=== PATIENT | male | born 1955 | race Caucasian/White ===

== ENCOUNTER 2019-04-09 02:20 | Outpatient (CLI) | payer MEDICARE, SELFPAY ==
[2019-04-09 11:13] LABS: ALT 21 U/L (12-78); AST 14 U/L (15-37); Alkaline Phosphatase 109 U/L (46-116); Anion Gap 8.4 mmol/L (3-11); BUN 16 mg/dL (7-18); Bilirubin, Total 0.5 mg/dL (0.2-1.0); CO2 28.6 mmol/L (21.0-32.0); CREATININE 0.99 mg/dL (0.70-1.30); Calcium 8.2 mg/dL (8.5-10.1); Chloride 106 mmol/L (98-107); Cholesterol 187 mg/dL (50-200); Glucose 105 mg/dL (70-100); HDL Cholesterol 25 mg/dL (40-60); LDL CHOLESTEROL 111 mg/dL (<100); Potassium 4.9 mmol/L (3.5-5.1); Sodium 143 mmol/L (136-145); Total Protein 6.9 g/dL (6.4-8.2); Triglyceride 295 mg/dL (30-150)
== END 2019-04-09 02:40 ==
DX: E78.5 Hyperlipidemia, unspecified (principal); F32.9 Major depressive disorder, single episode, unspecified; I10 Essential (primary) hypertension; K21.9 Gastro-esophageal reflux disease without esophagitis; R63.8 Other symptoms and signs concerning food and fluid intake
CPT/HCPCS: 36415; 80053; 80061; 83721

== ENCOUNTER 2019-07-29 07:37 | Emergency (ER) | payer MEDICARE, SELFPAY ==
[2019-07-29 07:42] VITALS: BP 136/83; PULSE 64; RESP 16; TEMP 36.7; O2SAT 100
--- NOTE | 2019-07-29 07:54 | W.ED.GENAD ---
Discharge Plan Disposition Patient Disposition: HOME Condition: Stable Discharge Details Chief Complaint: RashLesion Clinical Impression: Rash Primary Care Provider: Kamilla Jacobo ED Provider: Nessa Chaves Home Meds and New Rx's Prescriptions: New butenafine 1 % cream 1 applic TP DAILY Qty: 30 RF: 0 Continued psyllium husk [Metamucil] 0.52 GM capsule 0.52 gm PO DAILY RF: 0 atenolol 100 mg tablet 100 mg PO DAILY Qty: 90 RF: 4 allopurinol 300 mg tablet 300 mg PO DAILY Qty: 90 RF: 4 acetaminophen [Acetaminophen Extra Strength] 500 MG tablet 1 - 2 tab PO DAILY RF: 0 No Action omeprazole 40 mg capsule,delayed release(DR/EC) 40 mg PO DAILY Qty: 30 RF: 3 fluconazole 200 mg tablet 200 mg PO .weekly Qty: 4 RF: 0 clotrimazole 1 % cream 1 applic TP BID Qty: 24 RF: 2 Discharge Instructions Instructions: Butenafine (On the skin), Acute Rash (ED), Jock Itch (ED) Additional Instructions: Please return immediately to the emergency department if you develop any new or worsening symptoms, if your symptoms do not improve as expected, or if you become otherwise concerned. It is extremely important that you call as soon as possible to make an appointment to be seen in follow-up for this visit by your primary care doctor. 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 On exam patient is very well and nontoxic appearing. His skin is normal in appearance, with the exception of the groin area. Mild erythema of the groin extending into the perineum with well demarcated borders, no induration, no fluctuance, no scrotal edema or tenderness, normal exam of the penis. No inguinal lymphadenopathy. Concern for tinea cruris. Exam/history is not consistent with fourniers gangrene, cellulitis, abscess, UTI, testicular pathology, sepsis, other acute emergent life-threatening etiology. Suspect tinea secondary to recurrent excessive moisture to the area recently, no other symptoms concerning for diabetes, however will check fingerstick. Fingerstick 110 per nursing. Plan for Rx butenafine. I had a lengthy discussion with the patient regarding return to emergency department precautions/red flags to watch for, home care, importance of outpatient follow-up with patient's PCP. He verbalized understanding of the plan was amenable. All questions were answered. Patient was discharged home with clear plan for outpatient follow-up. Medical Records Medical records reviewed: Yes I reviewed the patient's medical records. Lab Data Lab results reviewed: Yes I reviewed the patient's lab results. HPI General Mode of arrival: ambulatory. Date/Time Provider Initiated Documentation: 07/29/19 07:53. Limitations to Documentation: no limitations. Information obtained by: patient, family, RN notes reviewed and old records reviewed. 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 Patient reports that he has had an itchy rash to his groin over the past month. He reports that itching has gotten progressively worse over time. He also states that rash is mildly painful. Patient reports that there have been no acute changes in his symptoms, other than mild nausea that he developed 3 days ago and has continued. He denies fevers, shortness of breath, cough, any other pain, any other rash, vomiting, diarrhea, dysuria. He states he has been eating and drinking as usual. Patient reports that he has tried putting baby powder and cornstarch on the rash, which has had no effect. Has not tried any other medications. No known exposures other than poison santy and areas that he has been working over the summer, although he has not had rash in any other area of his body in the past few months. Patient has never had similar symptoms to this groin rash in the past. Patient does report that he has been mowing his lawn more than usual over the past 2 months, and he sweats quite a bit. He reports that his underwear and pants have been soaking wet from sweat routinely while performing this task. Related Data Home Medications Medication Instructions Recorded Confirmed acetaminophen [Acetaminophen Extra 1 - 2 tab PO DAILY 01/25/17 07/29/19 Strength] psyllium husk [Metamucil] 0.52 gm PO DAILY 03/20/18 07/29/19 atenolol 100 mg tablet 100 mg PO DAILY #90 tab-cap 04/15/19 07/29/19 allopurinol 300 mg tablet 300 mg PO DAILY #90 tab-cap 06/07/19 07/29/19 butenafine 1 applic TP DAILY #30 gm 07/29/19 clotrimazole 1 % topical cream 1 applic TP BID #24 gm 08/07/19 08/07/19 fluconazole 200 mg tablet 200 mg PO .weekly #4 tab 08/07/19 08/07/19 omeprazole 40 mg capsule,delayed 40 mg PO DAILY #30 tab-cap 08/07/19 08/07/19 release Previous Rx's Medication Instructions Recorded atenolol 100 mg tablet 100 mg PO DAILY #90 tab-cap 04/15/19 allopurinol 300 mg tablet 300 mg PO DAILY #90 tab-cap 06/07/19 butenafine 1 applic TP DAILY #30 gm 07/29/19 clotrimazole 1 % topical cream 1 applic TP BID #24 gm 08/07/19 fluconazole 200 mg tablet 200 mg PO .weekly #4 tab 08/07/19 omeprazole 40 mg capsule,delayed 40 mg PO DAILY #30 tab-cap 08/07/19 release Allergies Allergy/AdvReac Type Severity Reaction Status Date / Time No Known Allergies Allergy Verified 07/29/19 07:46 General Stated Complaint: RashLesion ARIELLA: 4 Review of Systems Review of Systems Narrative: Constitutional: denies fevers Eyes: denies eye pain ENT: denies facial pain, dental pain, sore throat Cardiovascular: denies chest pain Respiratory: denies SOB, cough GI: denies abdominal pain, vomiting, diarrhea : denies flank pain MSK: denies back pain, neck pain, arthralgias, myalgias Skin: reports rash as per HPI Neuro: denies headaches, numbness, weakness [facility] Medical History Body aches (Chronic 07/13/17) Chronic interstitial cystitis (Chronic) 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) Diarrhea (Chronic 02/20/18) Essential hypertension (Chronic) External hemorrhoids (Chronic 07/20/17) Gastroesophageal reflux disease (Chronic 06/01/17) Gout (Chronic) Hearing loss (Chronic 08/01/13) History of unilateral nephrectomy (Chronic) Hyperlipidemia (Chronic 08/01/13) Increased BMI (body mass index) (Chronic 11/14/17) Insomnia (Chronic) LLQ discomfort (Chronic 03/20/18) Intermittent, chronic Memory impairment (Chronic 08/01/13) Obstructive sleep apnea syndrome (Chronic) C-Pap Primary osteoarthritis of both knees (Resolved 10/05/16) Shoulder pain (Chronic 08/01/13) Surgical History (Updated 04/04/19 @ 10:43 by Hortensia Prasad NP) Hemorrhoidectomy History of hemorrhoidectomy (Resolved) Nephrectomy (~1997) right Family History Mother No problems noted. Social History Smoking/Tobacco Use Status: Never Alcohol Intake: never Drug use: Never Do you feel safe at home: Yes Do you feel safe in your relationship?: Yes Exam Narrative Exam Narrative: Constitutional: well and emf-drrzp-onblcapun, pleasant, conversing normally HENT: head atraumatic/normocephalic/normal inspection, mucous membranes moist Eyes: conjunctiva normal, sclera normal, pupils 3mm b/l Neck: no stridor, normal ROM, trachea midline Chest: normal inspection Resp: normal work of breathing, LCTAB Cardio: normal rate, normal rhythm, no murmur appreciated Back: normal inspection, no rash : mild erythema of the groin extending into the perineum with well demarcated borders, no induration, no ulceration or other skin lesion, no fluctuance, no scrotal edema or tenderness, normal exam of the penis. No inguinal lymphadenopathy. No other skin rash. Skin: warm, dry, normal color, no rash Neuro: alert, not altered, grossly non-focal, normal tone Psych: normal mood, normal affect, normal behavior Course Vital Signs Vital signs: Vital Signs Temperature 36.7 C 07/29/19 07:42 Pulse 64 07/29/19 07:42 Respiratory Rate 16 07/29/19 07:42 Blood Pressure 136/83 07/29/19 07:42 Pulse Oximetry 100 07/29/19 07:42 Temperature 36.7 C 07/29/19 07:42 Temperature Source Temporal Artery Scan 07/29/19 07:42 Pulse 64 07/29/19 07:42 Respiratory Rate 16 07/29/19 07:42 Respiratory Effort Non-Labored 07/29/19 07:44 Blood Pressure 136/83 07/29/19 07:42 Blood Pressure Position Sitting 07/29/19 07:42 Pulse Oximetry 100 07/29/19 07:42 Oxygen Delivery Method Room Air 07/29/19 07:42 Oxygen Flow Rate 0 07/29/19 07:42 Pain Level 4 07/29/19 07:42
== END 2019-07-29 09:00 | disposition home or self-care (01) ==
PROVIDERS: Emergency Provider Student in an Organized Health Care Education/Training Program; PCP Family Medicine
DX: R21 Rash and other nonspecific skin eruption (principal); B35.6 Tinea cruris; R11.0 Nausea; I10 Essential (primary) hypertension
CPT/HCPCS: 36416; 82962; 99283

== ENCOUNTER 2019-12-27 03:36 | Outpatient (CLI) | payer MEDICARE, SELFPAY ==
--- NOTE | 2019-12-27 10:30 | DI.CT_ITS ---
EXAM: CT ABDOMEN AND PELVIS W CLINICAL HISTORY: PERIUMBILICAL PAIN/DIARRHEA, ABDOMINAL PAIN R10.9 TECHNIQUE: Imaging Protocol: Axial computed tomography images with coronal and sagittal reformatted images were created and reviewed CONTRAST MATERIAL: Intravenous: Omnipaque 350 Contrast volume:50 mL Oral: Yes COMPARISON: ABD PELVIS WITH CONTRAST from 04/28/2017 FINDINGS: ABDOMEN: Lung Bases: Normal where visualized. Liver: Diffuse decreased attenuation consistent with fatty infiltration. No measurable mass. Portal, Superior Mesenteric, and Splenic Veins: Unremarkable. Gallbladder and Biliary Tract: No radiodense calculus or dilation. Pancreas: Normal density, no abnormal calcifications or inflammatory process. Spleen: Normal. Adrenals: No masses seen. Kidneys: Prior right nephrectomy. No radiodense stones or obstructive uropathy. Several left renal c ysts. No suspicious renal mass. Abdominal Aorta: Abdominal portion non-dilated. Mild atherosclerosis. Bowel: No obstruction or bowel wall thickening. No evidence of an acute appendicitis. Peritoneal Cavity: No ascites, collection or mesenteric inflammatory response. Lymph Nodes: Within normal limits. Bones: Degenerative changes. Soft Tissues: Fat-containing inguinal hernias bilaterally. No evidence of an anterior abdominal wall hernia or mass. PELVIS: Bladder: Symmetric distention, no gross wall thickening. Reproductive Organs: Unremarkable as visualized. Lymph Nodes: Within normal limits. Bones: Within normal limits. IMPRESSION: 1. No evidence of an abdominal wall mass or hernia. 2. Hepatic steatosis. 3. Right nephrectomy. 4. Multiple left renal cysts. DATA REPOSITORY: All CT scans at this facility are submitted to the National Radiology Data Registry (NRDR) Dose Index Registry (DIR) with the [employer] ([employer]). RADIATION OPTIMIZATION: All CT scans at this facility use at least one of these dose optimization te chniques: automated exposure control; mA and/or kV adjustment per patient size (includes targeted exa ms where dose is matched to clinical indication); or iterative reconstruction.
[2019-12-27] MEDS: Omnipaque 350 MG/ML 50 ML BTL IJ (10:41)
[2019-12-27 11:21] LABS: CREATININE 1.15 mg/dL (0.70-1.30)
[2019-12-27] MEDS: Omnipaque 350 MG/ML 100 ML BTL IJ (12:15)
== END 2019-12-27 03:56 ==
PROVIDERS: PCP Family Medicine; Visit Provider Family Medicine
DX: R10.33 Periumbilical pain (principal); R19.4 Change in bowel habit; K76.0 Fatty (change of) liver, not elsewhere classified; Z90.5 Acquired absence of kidney; N28.1 Cyst of kidney, acquired; K40.20 Bilateral inguinal hernia, without obstruction or gangrene, not specified as recurrent
CPT/HCPCS: 74177; 82565; J3490; Q9967

== ENCOUNTER 2020-10-13 10:56 | Emergency (ER) | payer MEDICARE, SELFPAY ==
[2020-10-13 11:01] VITALS: BP 145/97; PULSE 61; RESP 20; TEMP 36.3; O2SAT 99
--- NOTE | 2020-10-13 11:16 | ED.GENADUL_ITS ---
Discharge Plan Disposition Patient Disposition: HOME Condition: Stable Discharge Details Clinical Impression: Otitis externa Primary Care Provider: Kamilla Jacobo ED Provider: Amandeep Hanna Home Meds and New Rx's Prescriptions: New qpxjewju-qjpqdjyvl-NQ 3.5-10,000-1 mg/mL-unit/mL-% drops,suspension 4 drp otic (ear) Q8H 10 Days Qty: 10 RF: 0 Continued atenolol 100 mg tablet 100 mg PO DAILY Qty: 90 RF: 4 allopurinol 300 mg tablet 300 mg PO DAILY Qty: 90 RF: 4 omeprazole 40 mg capsule,delayed release(DR/EC) 40 mg PO DAILY Qty: 90 RF: 3 Discharge Instructions Instructions: Otitis Externa (ED) Additional Instructions: Cortisporin as directed. Avoid direct wind or water in your ear. Pttz-gqs-wlmldub medications for symptomatic control. Please watch for new or worsening symptoms and return to the ER for any concerns. I do recommend reaching out your primary care provider to discuss outpatient follow-up. Medical Decision Making Right ear pain for the past week, worsening now associated with discharge. He is afebrile, mastoid is unremarkable, TM is normal, no obvious perforation or otitis media. Examination is most consistent with an otitis externa. Will treat as such. Will provide prescription for Cortisporin, patient comfortable this plan and has no additional questions or concerns. Medical Records Medical records reviewed: Yes I reviewed the patient's medical records. HPI General Mode of arrival: ambulatory . Date/Time Provider Initiated Documentation: 10/13/20 10:57 . Limitations to Documentation: no limitations . Information obtained by: patient . HPI Narrative: This is a 65-year-old gentleman with past medical history that includes hypertension, hyperlipidemia, gout, GERD, presenting to the ER for right ear pain. He states that it began approximately 1 week ago, worsening in nature. He used tiwn-bkj-qkszkex drops and noticed a black chunk come out of his ear. Since that time he has noticed a small amount of clear-white thick fluid. He reports the pain is moderate, has not tried any fjwa-sde-idbhypm Tylenol or Motrin. Denies any recent trauma. Denies other symptoms such as headache, fever, sore throat, cough, shortness of breath, rash. Related Data Home Medications Medication Instructions Recorded Confirmed atenolol 100 mg tablet 100 mg PO DAILY #90 tab-cap 04/27/20 10/13/20 allopurinol 300 mg tablet 300 mg PO DAILY #90 tab-cap 07/06/20 10/13/20 omeprazole 40 mg capsule,delayed 40 mg PO DAILY #90 tab-cap 08/28/20 10/13/20 release qqoxztpd-jimbfxhem-SM 4 drp OTIC (EAR) Q8H 10 Days #10 ml 10/13/20 Previous Rx's Medication Instructions Recorded atenolol 100 mg tablet 100 mg PO DAILY #90 tab-cap 04/27/20 allopurinol 300 mg tablet 300 mg PO DAILY #90 tab-cap 07/06/20 omeprazole 40 mg capsule,delayed 40 mg PO DAILY #90 tab-cap 08/28/20 release lfxasyix-hocxfrxzq-GQ 4 drp OTIC (EAR) Q8H 10 Days #10 ml 10/13/20 Allergies Allergy/AdvReac Type Severity Reaction Status Date / Time No Known Allergies Allergy Verified 10/13/20 11:06 General Stated Complaint: EarProblem ARIELLA: 4 Review of Systems Constitutional Constitutional: Denies fever(s) Eyes Eyes: Denies eye discharge ENT Ears, Nose, Mouth, and Throat: Reports ear discharge, Reports otalgia, Denies nasal discharge, Denies neck pain and Denies sore throat Cardiovascular Cardiovascular: Denies chest pain and Denies dyspnea Respiratory Respiratory: Denies cough and Denies dyspnea Musculoskeletal Musculoskeletal: Denies neck pain PFSH Medical History Body aches (07/13/17) Chronic interstitial cystitis 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 Depressive disorder (08/01/13) Diarrhea (02/20/18) Essential hypertension External hemorrhoids (07/20/17) Gastroesophageal reflux disease (06/01/17) Gout Hearing loss (08/01/13) History of unilateral nephrectomy Hyperlipidemia (08/01/13) Increased BMI (body mass index) (11/14/17) Insomnia LLQ discomfort (03/20/18) Intermittent, chronic Memory impairment (08/01/13) Obstructive sleep apnea syndrome C-Pap Primary osteoarthritis of both knees (10/05/16) Shoulder pain (08/01/13) Surgical History Hemorrhoidectomy History of hemorrhoidectomy Nephrectomy (~1997) right S/P herniorrhaphy (~04/2016) [facility] Family History Mother No problems noted. Social History Smoking/Tobacco Use Status: Never Smoking risk assessment performed?: Yes Alcohol Intake: never Drug use: Never Substance use type: does not use Do you feel safe at home: Yes Do you feel safe in your relationship?: Yes Exam Const General: cooperative, healthy appearing, comfortable and no acute distress Orientation: alert and awake HENNH Head: normal to inspection, normocephalic and atraumatic Ears: TM's normal bilaterally, mastoids normal, no periauricular adenopathy and EAC abnormal erythema, edema and otic discharge clear, purulent and other (This is all right-sided, left unremarkable) General nose exam: external nose normal Face and sinus: normal facial exam Mouth: oral mucosae normal and moist mucous membranes Throat: posterior oropharynx normal Eyes General: appearance normal, both eyes and all related structures Eyelids: eyelids normal Conjunctivae: conjunctivae normal Neck Neck: normal visual inspection, full ROM, no lymphadenopathy, no meningeal signs, trachea midline, supple and nontender Resp Effort & Inspection: normal respiratory effort and able to speak in complete sentences Auscultation: clear to auscultation bilaterally Cardio Rate: regular rate Rhythm: regular rhythm Skin General skin exam: no rashes or lesions noted Neuro General: patient alert, patient awake, moves all extremities and no focal motor deficits Sensory Exam: no sensory deficits noted Psych Appearance: grossly normal Mental Status: mental status grossly normal Course Vital Signs Vital signs: Vital Signs Temperature 36.3 C L 10/13/20 11:01 Pulse 61 10/13/20 11:01 Respiratory Rate 20 10/13/20 11:01 Blood Pressure 145/97 H 10/13/20 11:01 Pulse Oximetry 99 10/13/20 11:01 Temperature 36.3 C L 10/13/20 11:01 Temperature Source Skin 10/13/20 11:01 Pulse 61 10/13/20 11:01 Respiratory Rate 20 10/13/20 11:01 Respiratory Effort Non-Labored 10/13/20 11:04 Blood Pressure 145/97 H 10/13/20 11:01 Blood Pressure Position Sitting 10/13/20 11:01 Pulse Oximetry 99 10/13/20 11:01 Oxygen Delivery Method Hi Flow Nasal Cannula 10/13/20 11:01 Oxygen Flow Rate 0 10/13/20 11:01 Pain Level 9 10/13/20 11:04
[2020-10-13 11:28] VITALS: BP 145/97; PULSE 61; RESP 20; TEMP 36.3; O2SAT 99
== END 2020-10-13 11:30 | disposition home or self-care (01) ==
PROVIDERS: Emergency Provider Physician Assistant; PCP Family Medicine
DX: H60.391 Other infective otitis externa, right ear (principal); I10 Essential (primary) hypertension
CPT/HCPCS: 99283

== ENCOUNTER 2020-11-09 03:04 | Outpatient (CLI) | payer MEDICARE, SELFPAY ==
[2020-11-09 09:56] LABS: Calculated LDL 117 mg/dL (<100); Cholesterol 201 mg/dL (<200); HDL Cholesterol 31 mg/dL (40-60); Triglyceride 267 mg/dL (<150)
== END 2020-11-09 03:24 ==
PROVIDERS: PCP Family Medicine; Visit Provider Nurse Practitioner Family
DX: E78.5 Hyperlipidemia, unspecified (principal)
CPT/HCPCS: 36415; 80061

== ENCOUNTER 2021-05-18 03:05 | Outpatient (CLI) | payer MEDICARE, SELFPAY ==
--- NOTE | 2021-05-18 08:00 | DI.RAD_ITS ---
Exam(s) XR CHEST 2V PA LATERAL EXAM: XR CHEST 2V PA LATERAL CLINICAL HISTORY: crackles left base/fatigue/non smoker/no cough,R91.8,F/U LUNG FIELD FINDING TECHNIQUE: 2D digital imaging was performed. COMPARISON: CR CHEST 2 VIEWS PA,LAT from 01/25/2017 FINDINGS: MEDIASTINUM: Normal. HEART: Normal. PULMONARY VASCULATURE: Normal. LUNGS: Left lower lobe infiltrate. PLEURAL SPACE: No pleural effusion or pneumothorax. BONE:Within normal limits for the patient's age. OTHER FINDINGS:Normal. IMPRESSION: Left lower lobe infiltrate. DATA REPOSITORY: RADIATION DOSE DELIVERED:
== END 2021-05-18 03:25 ==
PROVIDERS: PCP Family Medicine; Visit Provider Family Medicine
DX: R91.8 Other nonspecific abnormal finding of lung field (principal)
CPT/HCPCS: 71046

== ENCOUNTER 2021-05-18 04:17 | Outpatient (CLI) | payer MEDICARE, SELFPAY ==
[2021-05-18 11:07] LABS: Abs Immature Grans 0.04 10^3/uL (0.0-0.06); Absolute Basophil Count 0.01 10^3/uL (0.0-0.2); Absolute Eosinophil Count 0.05 10^3/uL (0.0-0.7); Absolute Lymphocyte Count 1.19 10^3/uL (1.2-3.4); Absolute Monocyte Count 0.89 10^3/uL (0.1-0.8); Absolute Neutrophil Count 4.69 10^3/uL (1.2-6.7); Basophils % 0.1; Eosinophils % 0.7; HGB 11.9 g/dL (13.5-17.5); Immature Grans % 0.6; Lymphocytes % 17.3; MCH 30.1 pg (27.0-33.0); MCHC 33.1 % (32.0-36.0); MCV 91.1 fL (80-95); MPV 10.5 fL (8.0-11.0); Neutrophils % 68.3; Nucleated RBC 0 %; Platelet Count 213 10^3/uL (130-400); RBC 3.95 10^6/uL (4.36-5.78); RDW 13.2 % (11.8-14.1); RDW-SD 44.2 fL; WBC 6.87 10^3/uL (4.4-10.8)
[2021-05-18 12:26] LABS: ALT 37 U/L (16-63); AST 22 U/L (15-37); Albumin 3.1 g/dL (3.4-5.0); Alkaline Phosphatase 101 U/L (46-116); Anion Gap 10.9 mmol/L (3-11); BUN 13 mg/dL (7-18); Bilirubin, Total 0.3 mg/dL (0.2-1.0); CO2 27.1 mmol/L (21.0-32.0); CREATININE 1.3 mg/dL (0.70-1.30); Calcium 8.3 mg/dL (8.5-10.1); Chloride 103 mmol/L (98-107); Glucose 92 mg/dL (74-106); Magnesium 2.4 mg/dL (1.8-2.4); Sodium 141 mmol/L (136-145); TSH 1.93 uIU/mL (0.36-3.74); Total Protein 6.9 g/dL (6.4-8.2); Uric Acid 4.4 mg/dL (3.5-7.2)
[2021-05-18 12:56] LABS: Ferritin 739 ng/mL (26-388)
== END 2021-05-18 04:18 | disposition home or self-care (01) ==
LOC: LBO 04:17
PROVIDERS: PCP Family Medicine; Visit Provider Family Medicine
DX: I10 Essential (primary) hypertension (principal); R53.83 Other fatigue; M25.511 Pain in right shoulder; E83.42 Hypomagnesemia; M10.9 Gout, unspecified
CPT/HCPCS: 36415; 80053; 82728; 83735; 84443; 84550; 85025

== ENCOUNTER 2021-05-18 11:21 | Emergency (ER) | payer MEDICARE, SELFPAY ==
[2021-05-18] VITALS (44 sets, daily range): BP systolic 103–134; BP diastolic 65–88; PULSE 64–79; RESP 12–24; TEMP 36.7; O2SAT 93–100
--- NOTE | 2021-05-18 11:30 | RT.EKG_ITS ---
APPROVED REPORT Exam: Resting ECG Reason for Exam: SOB Patient Location: E HR:70 bpm ECG Measurements Heart Rate 70 AXIS RI 168 P 6 QRSd 114 QRS 17 QT 413 T 16 QTc 446 Conclusion Sinus rhythm...normal P axis, V-rate 60- 99. No STEMI. I have reviewed and interpreted ECG and agree with software generated interpretation.
--- NOTE | 2021-05-18 11:35 | W.ED.GENAD ---
Discharge Plan Disposition Patient Disposition: HOME Condition: Improving Discharge Details Clinical Impression: Pneumonia, Episode of syncope Primary Care Provider: Kamilla Jacobo ED Provider: Linda Chery Home Meds and New Rx's Prescriptions: New amoxicillin-pot clavulanate [Augmentin] 875-125 mg tablet 1 tab PO BID 7 Days Qty: 14 RF: 0 benzonatate [Tessalon Perles] 100 mg capsule 100 mg PO TID PRN (Reason: cough) Qty: 14 RF: 0 doxycycline hyclate 100 mg tablet 100 mg PO BID 7 Days Qty: 14 RF: 0 Continued simvastatin 20 mg tablet 20 mg PO DAILY Qty: 90 RF: 3 amitriptyline 150 mg tablet 150 mg PO QHS Qty: 90 RF: 3 atenolol 100 mg tablet 100 mg PO DAILY Qty: 90 RF: 4 allopurinol 300 mg tablet 300 mg PO DAILY Qty: 90 RF: 4 omeprazole 40 mg capsule,delayed release(DR/EC) 40 mg PO DAILY Qty: 90 RF: 3 Discharge Instructions Instructions: Syncope (ED), Pneumonia (ED) Additional Instructions: Drink plenty of fluids and get plenty of rest. Alternate tylenol and motrin as needed and directed for pain. Your prescriptions has been sent electronically to your pharmacy. Call the pharmacy to make sure your prescriptions are ready before pickup. Take the prescriptions as directed. Take the antibiotics as directed until finished. Use the cough medication and albuterol inhaler as needed and directed. Call your primary care doctor's office tomorrow to schedule follow-up appointment for reevaluation within the next week. Return immediately to the emergency department if you develop any worsening or new concerning symptoms. Stand Alone Forms: Work Release Discharge Data Discharge Date/Time-TO BE ENTERED AT DEPARTURE: 05/18/21 16:15 Discharge Physician: Linda Chery Medical Decision Making 66-year-old male with a history of hypertension, hyperlipidemia, GERD, gout and arthritis presents for multiple complaints over the past several days. Admits to feeling sweaty, productive cough, shortness of breath and poor appetite for the past few days. Also admits to a few episodes of left-sided chest pain today. Also admits to a fall at home after a syncopal episode with head injury now complaining of headache, neck pain and lower back pain. Patient was referred for outpatient labs and a chest x-ray per his PCP. The chest x-ray was not yet obtained. The labs are unremarkable with a normal white blood cell count. Hemoglobin of 11. Normal electrolytes. A troponin and lipase were added which were normal. A C-collar was placed. Will obtain CT head, cervical spine, chest abdomen pelvis/T & L spine imaging to rule out pneumonia or fracture. Will give a dose of morphine and IV fluids. Imaging reviewed and notes a left lower lobe pneumonia but otherwise unremarkable. Patient reassessed and he still complaining of headache and neck pain. Will give additional fluids, IV Tylenol and Toradol. Patient states he feels like he could go home. Will feed and ambulate. Will give p.o. augmentin and p.o. doxycycline. Patient reassessed and he is requesting to go home. He feels much better and denies any acute complaints. He was given Augmentin and doxycycline to go and prescription sent electronically to his pharmacy. Advised to follow up with the primary care doctor for re-evaluation. Usual and customary return precautions given prior to discharge. Medical Records Medical records reviewed: Yes I reviewed the patient's medical records. Imaging Data Radiologic Study: Radiologist's impression: CT HEAD CERVICAL SPINE WO CLINICAL HISTORY: fall with posterior head injury. TECHNIQUE: Imaging Protocol: Axial computed tomography images with coronal and sagittal reformatted images were created and reviewed COMPARISON: No exams were available for comparison FINDINGS: CT Head: Ventricles and Extra axial spaces: Normal in size and morphology for the patient's age. Hemorrhage: None. Cerebral parenchyma: Normal. No acute territorial infarct. Midline shift: None. Brainstem/Cerebellum: Normal. Calvarium: Normal. Visualized Paranasal sinuses/Mastoids: Clear except for a small mucous retention cyst or polyp in the right maxillary sinus. Soft Tissues: Unremarkable. CT Cervical Spine: Bones: No acute fracture or subluxation. Degenerative changes in the cervical spine. Soft Tissues: Unremarkable. Lung Apices: Clear. IMPRESSION: 1. No acute intracranial process. 2. No acute fracture or subluxation in the cervical spine. 3. Results of this exam have been verbally communicated with provider. CT CHEST/ABD/PEL W and CT thoracic and lumbar spine recons CLINICAL HISTORY: s/p fall, r/o rib fracture or pneumonia TECHNIQUE: Imaging Protocol: Axial computed tomography images with coronal and sagittal reformatted images were created and reviewed CONTRAST MATERIAL: Intravenous: Omnipaque 350 Contrast volume:100 mL Oral: No COMPARISON: CT CT ABDOMEN PELVIS W from 12/27/2019 FINDINGS: CHEST: Tracheobronchial tree: Patent where visualized. Pulmonary parenchyma: There is a left lower lobe infiltrate suspicious for pneumonia. No architectural distortion. Visualized thyroid gland: Unremarkable. Mediastinum and Dariana: No dominant adenopathy or fluid collection. Pleura: No effusion or pneumothorax. Heart: The heart is not dilated. No coronary artery calcifications are seen. No pericardial effusion. Aorta: Thoracic aorta non-dilated. Mild atherosclerosis. Lymph nodes: Within normal limits. Soft tissues: Unremarkable. Bones:No rib fracture. Degenerative changes are seen in the thoracic spine. No acute fracture or subluxation is seen in the thoracic spine. ABDOMEN: Liver: Normal density. No measurable mass. Portal, Superior Mesenteric, and Splenic Veins: Unremarkable. Gallbladder and Biliary Tract: No radiodense calculus or dilation. Pancreas: Normal density, no abnormal calcifications or inflammatory process. Spleen: The spleen is enlarged measuring 14 cm. Adrenals: No masses seen. Kidneys: Right kidney is absent. No radiodense stones or obstructive uropathy. Several left renal cysts are present. Abdominal Aorta: Abdominal portion non-dilated. Mild atherosclerosis. Bowel: No obstruction or bowel wall thickening. No evidence of appendicitis. Peritoneal Cavity: No ascites, collection or mesenteric inflammatory response. No free air. Lymph Nodes: Within normal limits. Bones: Degenerative changes. No acute fractures or subluxations in the lumbar spine or pelvis. Soft Tissues: Unremarkable. PELVIS: Bladder: Symmetric distention, no gross wall thickening. Reproductive Organs: Unremarkable as visualized. Lymph Nodes: Within normal limits. Bones: Within normal limits. IMPRESSION: 1. No acute abdominal or pelvic process. 2. No acute fracture or subluxation in the lumbar spine. 3. Left lower lobe pneumonia. 4. No acute fracture or subluxation in the thoracic spine. 5. Results of this exam have been verbally communicated with provider. Lab Data Lab results reviewed: Yes I reviewed the patient's lab results. Labs: Laboratory Tests Range/Units 05/18/21 11:02 Troponin I (<0.06) ng/mL < 0.05 Lipase (73-393) U/L 150 HPI General Mode of arrival: ambulatory. Date/Time Provider Initiated Documentation: 05/18/21 11:34. Limitations to Documentation: no limitations. Information obtained by: patient. HPI Narrative: Patient is a 66-year-old male with a history of hypertension, hyperlipidemia, arthritis who presents for multiple complaints. He states he had shortness of breath and a cough with brown sputum and decreased appetite for the past 5 days. He states he has also felt extremely sweaty for the past few days. He states 4 days ago at home he was walking and his legs gave out and he passed out and hit his head on the bathtub. He states he has had a headache and neck pain and lower back pain since then. He also states he had a few episodes of left-sided chest pain yesterday which lasted 15 minutes and then resolved. He states he has been drinking plenty of water and urinating frequently. He denies any chest pain at present, abdominal pain, dysuria or diarrhea Related Data Home Medications Medication Instructions Recorded Confirmed atenolol 100 mg tablet 100 mg PO DAILY #90 tab-cap 04/27/20 05/18/21 allopurinol 300 mg tablet 300 mg PO DAILY #90 tab-cap 07/06/20 05/18/21 omeprazole 40 mg capsule,delayed 40 mg PO DAILY #90 tab-cap 08/28/20 05/18/21 release simvastatin 20 mg tablet 20 mg PO DAILY #90 tab 11/16/20 05/18/21 amitriptyline 150 mg tablet 150 mg PO QHS #90 tab 05/10/21 05/18/21 amoxicillin-pot clavulanate 1 tab PO BID 7 Days #14 tab 05/18/21 [Augmentin] benzonatate [Tessalon Perles] 100 mg PO TID PRN #14 cap 05/18/21 doxycycline hyclate 100 mg PO BID 7 Days #14 tab 05/18/21 Previous Rx's Medication Instructions Recorded atenolol 100 mg tablet 100 mg PO DAILY #90 tab-cap 04/27/20 allopurinol 300 mg tablet 300 mg PO DAILY #90 tab-cap 07/06/20 omeprazole 40 mg capsule,delayed 40 mg PO DAILY #90 tab-cap 08/28/20 release simvastatin 20 mg tablet 20 mg PO DAILY #90 tab 11/16/20 amitriptyline 150 mg tablet 150 mg PO QHS #90 tab 05/10/21 amoxicillin-pot clavulanate 1 tab PO BID 7 Days #14 tab 05/18/21 [Augmentin] benzonatate [Tessalon Perles] 100 mg PO TID PRN #14 cap 05/18/21 doxycycline hyclate 100 mg PO BID 7 Days #14 tab 05/18/21 Allergies Allergy/AdvReac Type Severity Reaction Status Date / Time No Known Allergies Allergy Verified 05/10/21 15:59 General ARIELLA: 4 Review of Systems All systems reviewed & are unremarkable except as noted in HPI and below Constitutional Constitutional: Reports as per HPI, Denies chills, Denies fever(s) and Reports headache(s) Eyes Eyes: Denies blurry vision ENT Ears, Nose, Mouth, and Throat: Denies dizziness, Reports headache(s), Reports neck pain, Denies sore throat and Denies throat swelling Cardiovascular Cardiovascular: Reports chest pain and Reports dyspnea Respiratory Respiratory: Reports cough and Reports dyspnea Gastrointestinal Gastrointestinal: Denies abdominal pain, Denies diarrhea and Denies vomiting Genitourinary Genitourinary: Denies hematuria and Denies dysuria Musculoskeletal Musculoskeletal: Reports back pain, Reports neck pain and Denies numbness Integumentary/Breasts Skin/Breast: Denies lesions and Denies rash Neurologic Neurologic: Denies dizziness, Reports headache(s), Denies localized weakness and Denies numbness Allergic/Immunologic Allergic/Immunologic: Denies throat swelling [facility] Medical History Body aches (07/13/17) Chronic interstitial cystitis 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 Depressive disorder (08/01/13) Diarrhea (02/20/18) Essential hypertension External hemorrhoids (07/20/17) Gastroesophageal reflux disease (06/01/17) Gout Hearing loss (08/01/13) History of unilateral nephrectomy Hyperlipidemia (08/01/13) Increased BMI (body mass index) (11/14/17) Insomnia LLQ discomfort (03/20/18) Intermittent, chronic Memory impairment (08/01/13) Obstructive sleep apnea syndrome C-Pap Primary osteoarthritis of both knees (10/05/16) Shoulder pain (08/01/13) Surgical History Hemorrhoidectomy History of hemorrhoidectomy Nephrectomy (~1997) right S/P herniorrhaphy (~04/2016) [facility] Family History Mother No problems noted. Social History Smoking/Tobacco Use Status: Never Smoking risk assessment performed?: Yes Alcohol Intake: never Drug use: Never Substance use type: does not use Do you feel safe at home: Yes Do you feel safe in your relationship?: Yes Exam Const General: cooperative, no acute distress and anxious Orientation: alert, awake and oriented x3 HENMT Head: normal to inspection Face and sinus: normal facial exam Mouth: mucous membranes dry Eyes General: appearance normal, both eyes and all related structures Pupils: PERRL EOM: EOM intact bilaterally Neck Neck: normal visual inspection and No submandibular swelling Lymphatic: no lymphadenopathy noted Chest Chest: normal inspection of the chest and no tenderness Resp Effort & Inspection: normal respiratory effort and able to speak in complete sentences Auscultation: clear to auscultation bilaterally Cardio Rate: regular rate Rhythm: regular rhythm GI Inspection: normal to inspection and no abdominal wall ecchymosis Palpation: soft, not firm, not rigid and nontender Auscultation: normal bowel sounds Back/Spine/Pelvis Cervical Spine: cervical spinal tenderness Thoracic/Lumbar Spine: thoracic spinal tenderness and lumbar spinal tenderness Pelvis: no pain with anterior-posterior compression Skin General skin exam: no rashes or lesions noted Neuro General: patient alert, patient awake and patient oriented x3 Cognition: normal cognition Speech: speech normal Motor: muscle tone normal throughout Sensory Exam: no sensory deficits noted Extrem General: normal to inspection, full ROM, capillary refill normal, no calf tenderness bilaterally and no edema Psych Appearance: grossly normal Mental Status: mental status grossly normal Speech and Movement: speech and movement normal Affect: normal affect
[2021-05-18 12:19] LABS: Lipase 150 U/L (73-393)
[2021-05-18 12:20] LABS: Troponin I < 0.05 ng/mL (<0.06)
--- NOTE | 2021-05-18 12:30 | DI.CT_ITS ---
Exam(s) CT HEAD CERVICAL SPINE WO EXAM: CT HEAD CERVICAL SPINE WO CLINICAL HISTORY: fall with posterior head injury. TECHNIQUE: Imaging Protocol: Axial computed tomography images with coronal and sagittal reformatted images were created and reviewed COMPARISON: No exams were available for comparison FINDINGS: CT Head: Ventricles and Extra axial spaces: Normal in size and morphology for the patient's age. Hemorrhage: None. Cerebral parenchyma: Normal. No acute territorial infarct. Midline shift: None. Brainstem/Cerebellum: Normal. Calvarium: Normal. Visualized Paranasal sinuses/Mastoids: Clear except for a small mucous retention cyst or polyp in the right maxillary sinus. Soft Tissues: Unremarkable. CT Cervical Spine: Bones: No acute fracture or subluxation. Degenerative changes in the cervical spine. Soft Tissues: Unremarkable. Lung Apices: Clear. IMPRESSION: 1. No acute intracranial process. 2. No acute fracture or subluxation in the cervical spine. 3. Results of this exam have been verbally communicated with provider.. RADIATION DOSE DELIVERED: 1,548.95mGy.cm Total DLP DATA REPOSITORY: All CT scans at this facility are submitted to the National Radiology Data Registry (NRDR) Dose Index Registry (DIR) with the [employer] (A[employer]). RADIATION OPTIMIZATION: All CT scans at this facility use at least one of these dose optimization te chniques: automated exposure control; mA and/or kV adjustment per patient size (includes targeted exa ms where dose is matched to clinical indication); or iterative reconstruction.
--- NOTE | 2021-05-18 12:30 | DI.CT_ITS ---
Exam(s) CT CHEST/ABD/PEL W CT THORACIC LUMBAR SPINE REC EXAM: CT CHEST/ABD/PEL W and CT thoracic and lumbar spine recons CLINICAL HISTORY: s/p fall, r/o rib fracture or pneumonia TECHNIQUE: Imaging Protocol: Axial computed tomography images with coronal and sagittal reformatted images were created and reviewed CONTRAST MATERIAL: Intravenous: Omnipaque 350 Contrast volume:100 mL Oral: No COMPARISON: CT CT ABDOMEN PELVIS W from 12/27/2019 FINDINGS: CHEST: Tracheobronchial tree: Patent where visualized. Pulmonary parenchyma: There is a left lower lobe infiltrate suspicious for pneumonia. No architectura l distortion. Visualized thyroid gland: Unremarkable. Mediastinum and Dariana: No dominant adenopathy or fluid collection. Pleura: No effusion or pneumothorax. Heart: The heart is not dilated. No coronary artery calcifications are seen. No pericardial effusion. Aorta: Thoracic aorta non-dilated. Mild atherosclerosis. Lymph nodes: Within normal limits. Soft tissues: Unremarkable. Bones:No rib fracture. Degenerative changes are seen in the thoracic spine. No acute fracture or subl uxation is seen in the thoracic spine. ABDOMEN: Liver: Normal density. No measurable mass. Portal, Superior Mesenteric, and Splenic Veins: Unremarkable. Gallbladder and Biliary Tract: No radiodense calculus or dilation. Pancreas: Normal density, no abnormal calcifications or inflammatory process. Spleen: The spleen is enlarged measuring 14 cm. Adrenals: No masses seen. Kidneys: Right kidney is absent. No radiodense stones or obstructive uropathy. Several left renal cys ts are present. Abdominal Aorta: Abdominal portion non-dilated. Mild atherosclerosis. Bowel: No obstruction or bowel wall thickening. No evidence of appendicitis. Peritoneal Cavity: No ascites, collection or mesenteric inflammatory response. No free air. Lymph Nodes: Within normal limits. Bones: Degenerative changes. No acute fractures or subluxations in the lumbar spine or pelvis. Soft Tissues: Unremarkable. PELVIS: Bladder: Symmetric distention, no gross wall thickening. Reproductive Organs: Unremarkable as visualized. Lymph Nodes: Within normal limits. Bones: Within normal limits. IMPRESSION: 1. No acute abdominal or pelvic process. 2. No acute fracture or subluxation in the lumbar spine. 3. Left lower lobe pneumonia. 4. No acute fracture or subluxation in the thoracic spine. 5. Results of this exam have been verbally communicated with provider. RADIATION DOSE DELIVERED: Total DLP DATA REPOSITORY: All CT scans at this facility are submitted to the National Radiology Data Registry (NRDR) Dose Index Registry (DIR) with the [employer] (A[employer]). RADIATION OPTIMIZATION: All CT scans at this facility use at least one of these dose optimization te chniques: automated exposure control; mA and/or kV adjustment per patient size (includes targeted exa ms where dose is matched to clinical indication); or iterative reconstruction.
[2021-05-18] MEDS: Normal Saline 500 ML IV ×2 (13:11→14:09)
[2021-05-18] MEDS: Omnipaque 350 MG/ML 100 ML BTL IJ (13:19)
[2021-05-18] MEDS: Normal Saline - Diluent 50 ML VIAL IV (13:19)
[2021-05-18] MEDS: Normal Saline Flush 10 ML SYR IVP (13:20)
[2021-05-18] MEDS: Ondansetron 4 MG/2 ML VIAL IVP (13:24)
[2021-05-18] MEDS: Doxycycline Hyclate 100 MG CAP PO (14:05)
[2021-05-18] MEDS: Amoxicillin 875/Clav. 125 TAB PO (14:05)
[2021-05-18] MEDS: Ketorolac 30 MG/ML VIAL IVP (14:08)
[2021-05-18] MEDS: ACETAMINOPHEN 1,000 MG/100 ML BTL 400 MG IVPB (14:08)
[2021-05-18] MEDS: Amox. 875/Clav. 125, 2 TABS/BTL 1 TAB PO (15:59)
[2021-05-18] MEDS: Doxycycline Hyclate 100 MG, 2 CAPS/BTL PO (16:00)
[2021-05-18] MEDS: Albuterol HFA 8 GM 60 PUFF INH IH (16:00)
== END 2021-05-18 16:15 | disposition home or self-care (01) ==
PROVIDERS: Emergency Provider Physician Assistant; PCP Family Medicine
DX: J18.9 Pneumonia, unspecified organism (principal); R55 Syncope and collapse
CPT/HCPCS: 36415; 74177; 80053; 83690; 93005; 94640; 96361; 96365; 96375; 99285; 70450; 71046; 71260; 72125; 82728; 83735; 84443; 84484; 84550; 85025; 93010; J0131; J1885; J2405; J3490

== ENCOUNTER 2021-06-30 11:53 | Emergency (ER) | payer MEDICARE, SELFPAY ==
[2021-06-30] VITALS (46 sets, daily range): BP systolic 111–130; BP diastolic 64–87; PULSE 61–71; RESP 9–25; TEMP 36.6; O2SAT 94–100
--- NOTE | 2021-06-30 11:45 | RT.EKG_ITS ---
APPROVED REPORT Exam: Resting ECG Reason for Exam: cva Patient Location: E HR:69 bpm ECG Measurements Heart Rate 69 AXIS AR 227 P 7 QRSd 120 QRS 19 QT 396 T 26 QTc 424 Conclusion Sinus rhythm...normal P axis, V-rate 60- 99 Prolonged AR interval...AR >220, V-rate 50- 90 Nonspecific intraventricular conduction delay...QRSd >115mS, not LBBB/RBBB
--- NOTE | 2021-06-30 11:45 | DI.CT_ITS ---
Exam(s) CT BRAIN NECK CTA EXAM: CT BRAIN NECK CTA CLINICAL HISTORY: stroke symptoms. TECHNIQUE: Imaging Protocol: Axial CT angiography was performed with multi-slice acquisition and mu lti-planar and/or 3D reconstructions. CONTRAST MATERIAL: Intravenous: Omnipaque 350 Contrast volume:structured data in ml COMPARISON: CT CT THORACIC LUMBAR SPINE REC from 05/18/2021 FINDINGS: CTA Neck W: Aortic arch anatomy: The aortic arch anatomy is conventional. Anterior circulation: Both common carotid arteries ascend with normal luminal diameters. No significant atherosclerotic narrowing at the level the carotid bifurcations and proximal internal carotid arteries on either side. Both internal carotid arteries exhibit normal diameters in the uppe r neck and are demonstrated to be patent within the skull base-carotid canals. Posterior circulation: Both vertebral arteries originated conventional fashion off of the subclavian arteries. The left boaz tebral artery is dominant exhibiting a luminal diameter of 5.2 millimeters within the foramen transve rse area. It is the main contributor to the formation of the basilar artery at the skull base. The thinner right vertebral artery exhibits a luminal diameter of 2.5 millimeters in the foramen transver sarium. It terminates as the posterior inferior cerebellar artery and does not contribute to the for mation of the basilar artery CTA Brain W: Anterior circulation: Both internal carotid arteries are patent in the skull base-carotid canals as well as within the cave rnous sinuses. Ophthalmic arteries are patent bilaterally and originated conventional fashion off th e intracavernous internal carotid arteries. Supraclinoid aspects of both internal carotid arteries are patent. Both middle cerebral arteries are demonstrated be patent out to the sylvian fissure branches. Both A1 segments are patent as are the anterior cerebral arteries. There is no evidence of aneurysm at the level of the anterior communicat ing artery. Posterior circulation: The basilar artery ascends in the midline with luminal diameter of 4 millimeters. Distally gives off superior cerebellar arteries and above this level terminates as patent bilateral posterior cerebral arteries. There is no evidence of aneurysm at the tip of the basilar artery nor elsewhere in the cir [id number]. CT BRAIN: There is no evidence of intracranial hemorrhage, mass effect, or shift of midline structures. There are no extra-axial fluid collections. Ventricles are not enlarged or shifted and there is no blood w ithin the ventricular system nor within the basal cisterns. There are no ring enhancing lesions in t he brain and no abnormal meningeal enhancement. IMPRESSION: 1. No significant atherosclerotic narrowing of the carotid arteries in the neck. Left vertebral michaelle ry is dominant. Right vertebral artery does not contribute to the formation of the basilar artery. 2. No evidence of intraluminal filling defect within the intracranial arteries. 3. No aneurysm is evident. No ring enhancing lesions in the brain nor abnormal meningeal enhanceme nt. No evidence of intracranial hemorrhage. RADIATION DOSE DELIVERED: 2,332.78mGy.cm Total DLP DATA REPOSITORY: All CT scans at this facility are submitted to the National Radiology Data Registry (NRDR) Dose Index Registry (DIR) with the [employer] (A[employer]). RADIATION OPTIMIZATION: All CT scans at this facility use at least one of these dose optimization te chniques: automated exposure control; mA and/or kV adjustment per patient size (includes targeted exa ms where dose is matched to clinical indication); or iterative reconstruction.
--- NOTE | 2021-06-30 12:06 | W.ED.GENAD ---
Discharge Plan Disposition Patient Disposition: [facility] Condition: Serious Discharge Details Clinical Impression: Acute cerebrovascular accident (CVA) Primary Care Provider: Kamilla Jacobo ED Provider: Cesario Villatoro Home Meds and New Rx's Prescriptions: No Action simvastatin 20 mg tablet 20 mg PO DAILY Qty: 90 RF: 3 atenolol 100 mg tablet 100 mg PO DAILY Qty: 90 RF: 4 allopurinol 300 mg tablet 300 mg PO DAILY Qty: 90 RF: 4 omeprazole 40 mg capsule,delayed release(DR/EC) 40 mg PO DAILY Qty: 90 RF: 3 amitriptyline 150 mg tablet 300 mg PO QHS RF: 0 Medical Decision Making 66 yo male with hx of htn, gerd, hld, martin, who comes in with slurred speech and right sided weakness. 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 She then brought him immediately here and he is noted to have right sided facial droop, right sided weakness. He does have dysarthria but can be understood and is caox4. Denies any prior cva or major bleeding events. Denies chest pain or abdomen pain or back pain or headache, no recent fevers. He has full intact extraocular eye movements, has hemianopia in both eyes on the right , left sided facial droop and forehead is spared. Right arm and leg are weak and hit the bed almost immediately. His NIH of 13 (1 for dysarthria, 2 ataxia in right arm and leg, 2 right leg hits the bed, 2 right arm hits the bed, 1 left leg drifts but doesn't hit the bed, 1 left arm drifts but doesn't hit the bed, 2 for facial palsy, 2 for visual velásquez). Suspect this is a cva, will obtain labs and refer for ct and cta. pt reassessed and remains stable without changes, labs thus far unremarkable, awaiting ct read, no hemorrhage on my read of the ct pt's cta shows no acute findings on my read. Discussed tpa with /pt and their is hesitation atthis time. They want to discuss with their family They are still not sure if they want cta shows no acute findings per Dr. carrera, he has no contraindications to tpa and his and patient would be okay with having it after discussing risks benefits. Consulted with neurologist Dr. Mccall at [facility] [place] and agrees with tpa and [facility] [place] can accept in transfer, accepting provider is Dr. Padilla. Pt and updated and remains stable Differential Diagnosis Differential Diagnosis: cva, hypoglycemia, electrolyte abnormality Imaging Data Radiologic Study: Attestation: I personally reviewed and interpreted this imaging study as follows: Imaging: CT Scan Radiologist's impression: no acute findings per Dr. Carrera Lab Data Lab results reviewed: Yes I reviewed the patient's lab results. ECG Data Attestation: I personally reviewed and interpreted this ECG (s) as follows: Prior ECG tracings: not available for review Interpretation: sinus rhythm, rate of 69, no acute st t wave ischemic findings HPI General Mode of arrival: wheelchair. Date/Time Provider Initiated Documentation: 06/30/21 11:56. Limitations to Documentation: other (dysarthria). Information obtained by: patient and family. History of Present Illness 66 year old M presents to the emergency department with the chief complaint of slurred speech, described as moderate, Patient reports no radiation. Patient started experiencing this minute(s) (30) and it has been constant. No relieving factors improve symptom(s), No exacerbating factors reported . Patient notes weakness; denies fever/chills. Patient did receive the following treatments prior to arrival, none Related Data Home Medications Medication Instructions Recorded Confirmed atenolol 100 mg tablet 100 mg PO DAILY #90 tab-cap 04/27/20 06/30/21 allopurinol 300 mg tablet 300 mg PO DAILY #90 tab-cap 07/06/20 06/30/21 omeprazole 40 mg capsule,delayed 40 mg PO DAILY #90 tab-cap 08/28/20 06/30/21 release simvastatin 20 mg tablet 20 mg PO DAILY #90 tab 11/16/20 06/30/21 amitriptyline 300 mg PO QHS 06/30/21 06/30/21 Previous Rx's Medication Instructions Recorded atenolol 100 mg tablet 100 mg PO DAILY #90 tab-cap 04/27/20 allopurinol 300 mg tablet 300 mg PO DAILY #90 tab-cap 07/06/20 omeprazole 40 mg capsule,delayed 40 mg PO DAILY #90 tab-cap 08/28/20 release simvastatin 20 mg tablet 20 mg PO DAILY #90 tab 01/04/21 Allergies Allergy/AdvReac Type Severity Reaction Status Date / Time No Known Allergies Allergy Verified 06/30/21 12:08 General Stated Complaint: CVA/TIA ARIELLA: 2 Review of Systems All systems reviewed & are unremarkable except as noted in HPI and below Constitutional Constitutional: Denies chills and Denies fever(s) Cardiovascular Cardiovascular: Denies chest pain and Denies dyspnea Respiratory Respiratory: Denies cough and Denies dyspnea Gastrointestinal Gastrointestinal: Denies abdominal pain, Denies nausea and Denies vomiting [facility] Medical History Body aches (07/13/17) Chronic interstitial cystitis 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 Depressive disorder (08/01/13) Diarrhea (02/20/18) Essential hypertension External hemorrhoids (07/20/17) Gastroesophageal reflux disease (06/01/17) Gout Hearing loss (08/01/13) History of unilateral nephrectomy Hyperlipidemia (08/01/13) Increased BMI (body mass index) (11/14/17) Insomnia LLQ discomfort (03/20/18) Intermittent, chronic Memory impairment (08/01/13) Obstructive sleep apnea syndrome C-Pap Primary osteoarthritis of both knees (10/05/16) Shoulder pain (08/01/13) Surgical History Hemorrhoidectomy History of hemorrhoidectomy Nephrectomy (~1997) right S/P herniorrhaphy (~04/2016) [facility] Family History Mother No problems noted. Social History Smoking/Tobacco Use Status: Never Smoking risk assessment performed?: Yes Alcohol Intake: never Drug use: Never Substance use type: does not use Do you feel safe at home: Yes Do you feel safe in your relationship?: Yes Exam Const General: not lethargic Orientation: alert HENUT Head: normal to inspection Ears: external ears normal General nose exam: external nose normal Mouth: moist mucous membranes Eyes General: appearance normal, both eyes and all related structures Neck Neck: normal visual inspection Resp Effort & Inspection: normal respiratory effort Cardio Rate: regular rate Skin General skin exam: no rashes or lesions noted Neuro General: patient alert and patient oriented x3 Extrem General: normal to inspection Course Vital Signs Vital signs: Vital Signs Temperature 36.6 C 06/30/21 11:57 Pulse 70 06/30/21 11:57 Respiratory Rate 25 H 06/30/21 11:57 Blood Pressure 130/81 06/30/21 11:57 Pulse Oximetry 97 06/30/21 11:57 Temperature 36.6 C 06/30/21 11:57 Temperature Source Temporal Artery Scan 06/30/21 11:57 Pulse 70 06/30/21 11:57 Respiratory Rate 25 H 06/30/21 11:57 Blood Pressure 130/81 06/30/21 11:57 Blood Pressure Position Sitting 06/30/21 11:57 Pulse Oximetry 97 06/30/21 11:57 Oxygen Delivery Method Room Air 06/30/21 11:57 Oxygen Flow Rate 0 06/30/21 11:57 Critical Care Time Critical Care Time Critical Care Time: Yes Total Critical Care Time: 60 (minutes) Attestation: time spent on lab review, hemodynamic monitoring and frequent reassessments in a patient with acute cva requiring TPA and potential to deteriorate at any time
[2021-06-30 12:09] LABS: Abs Immature Grans 0.01 10^3/uL (0.0-0.06); Absolute Basophil Count 0.01 10^3/uL (0.0-0.2); Absolute Eosinophil Count 0.08 10^3/uL (0.0-0.7); Absolute Monocyte Count 0.38 10^3/uL (0.1-0.8); Absolute Neutrophil Count 2.59 10^3/uL (1.2-6.7); Basophils % 0.2; Eosinophils % 1.8; HCT 36.6 % (40.0-50.0); HGB 11.9 g/dL (13.5-17.5); Immature Grans % 0.2; Lymphocytes % 32.8; MCH 30.4 pg (27.0-33.0); MCHC 32.5 % (32.0-36.0); MCV 93.4 fL (80-95); MPV 11.4 fL (8.0-11.0); Monocytes % 8.3; Neutrophils % 56.7; Nucleated RBC 0 %; RBC 3.92 10^6/uL (4.36-5.78); RDW 13.5 % (11.8-14.1); WBC 4.57 10^3/uL (4.4-10.8)
[2021-06-30] MEDS: Omnipaque 350 MG/ML 100 ML BTL IV (12:19)
[2021-06-30] MEDS: Normal Saline - Diluent 50 ML VIAL IV (12:19)
[2021-06-30 12:20] LABS: Diff Comment Diff Reviewed; Platelet Count 117 10^3/uL (130-400); RBC Morphology Normal
[2021-06-30 12:21] LABS: PTT Activated 23.3 sec (21.0-27.5); Prothrombin Time 10.5 sec (9.3-11.0)
[2021-06-30 12:30] LABS: ALT 17 U/L (16-63); AST 13 U/L (15-37); Albumin 3.6 g/dL (3.4-5.0); Alkaline Phosphatase 82 U/L (46-116); BUN 13 mg/dL (7-18); Bilirubin, Total 0.5 mg/dL (0.2-1.0); Chloride 108 mmol/L (98-107); Glucose 122 mg/dL (74-106); Magnesium 2.1 mg/dL (1.8-2.4); Potassium 4.2 mmol/L (3.5-5.1); Sodium 144 mmol/L (136-145); TSH (W/Ref FT4) 1.04 uIU/mL (0.36-3.74); Total Protein 6.8 g/dL (6.4-8.2); Troponin I < 0.05 ng/mL (<0.06)
[2021-06-30 12:34] LABS: Source Nasal/Nares
[2021-06-30 13:28] LABS: COVID-19 PCR Negative (Negative)
--- NOTE | 2021-06-30 14:02 | NUR.NOTE ---
1400 hrs 15 minutes into infusion, Pt. alert and answering questions appropriately. Vitals normal. No signs of bleeding 1415 hrs 30 minutes into infusion,Pt. resting easily aroused, Alert and answering questions appropriately, no signs of bleeding 1430 hrs 45 minutes into infusion, Pt. resting ,easily aroused, Alert and oriented, answering questions appropriately, vitals normal, no signs of bleeding. 1442 hrs Infusion ended. Pt alert and oriented, answering questions appropriately. vitals normal, no signs of bleeding, monitor NSR. Nursing Note:
== END 2021-06-30 15:43 | disposition short-term general hospital (02) ==
PROVIDERS: Emergency Provider Emergency Medicine; PCP Family Medicine
DX: I63.9 Cerebral infarction, unspecified (principal); R47.1 Dysarthria and anarthria; R29.810 Facial weakness; R53.1 Weakness; R47.81 Slurred speech; H53.47 Heteronymous bilateral field defects; R29.713 NIHSS score 13; I10 Essential (primary) hypertension; Z20.822 Contact with and (suspected) exposure to COVID-19
CPT/HCPCS: 36415; 36416; 70496; 70498; 80053; 82962; 87635; 93005; 96365; 99291; 81003; 83735; 84443; 84484; 85025; 85610; 85730; 93010; J2997; J3490

== ENCOUNTER 2021-10-25 03:52 | Outpatient (CLI) | payer MEDICARE, SELFPAY ==
[2021-10-25 09:02] LABS: Abs Immature Grans 0.01 10^3/uL (0.0-0.06); Absolute Basophil Count 0.02 10^3/uL (0.0-0.2); Absolute Eosinophil Count 0.09 10^3/uL (0.0-0.7); Absolute Lymphocyte Count 1.58 10^3/uL (1.2-3.4); Absolute Monocyte Count 0.48 10^3/uL (0.1-0.8); Absolute Neutrophil Count 2.35 10^3/uL (1.2-6.7); Basophils % 0.4; HCT 38.9 % (40.0-50.0); HGB 12.8 g/dL (13.5-17.5); Immature Grans % 0.2; Lymphocytes % 34.9; MCH 30.6 pg (27.0-33.0); MCHC 32.9 % (32.0-36.0); MCV 93.1 fL (80-95); MPV 11.8 fL (8.0-11.0); Monocytes % 10.6; Neutrophils % 51.9; Nucleated RBC 0 %; Platelet Count 115 10^3/uL (130-400); RBC 4.18 10^6/uL (4.36-5.78); RDW-SD 44.1 fL; WBC 4.53 10^3/uL (4.4-10.8)
[2021-10-25 09:59] LABS: ALT 33 U/L (16-63); AST 17 U/L (15-37); Albumin 4.2 g/dL (3.4-5.0); Alkaline Phosphatase 88 U/L (46-116); BUN 17 mg/dL (7-18); Bilirubin, Total 0.4 mg/dL (0.2-1.0); CREATININE 1.2 mg/dL (0.70-1.30); Calcium 8.4 mg/dL (8.5-10.1); Chloride 106 mmol/L (98-107); Glucose 90 mg/dL (74-106); Potassium 4.9 mmol/L (3.5-5.1); Sodium 143 mmol/L (136-145); Total Protein 7.4 g/dL (6.4-8.2); Uric Acid 4.5 mg/dL (3.5-7.2)
[2021-10-25 10:17] LABS: Calculated LDL 47 mg/dL (<100); Cholesterol 129 mg/dL (<200); HDL Cholesterol 36 mg/dL (40-60); Triglyceride 230 mg/dL (<150)
== END 2021-10-25 03:53 | disposition home or self-care (01) ==
LOC: LOS 03:52
PROVIDERS: PCP Family Medicine; Visit Provider Family Medicine
DX: E78.2 Mixed hyperlipidemia (principal); M1A.0720 Idiopathic chronic gout, left ankle and foot, without tophus (tophi); I63.9 Cerebral infarction, unspecified
CPT/HCPCS: 36415; 80053; 80061; 84550; 85025

== ENCOUNTER 2021-11-04 11:44 | Emergency (ER) | payer MEDICARE, SELFPAY ==
[2021-11-04] VITALS (7 sets, daily range): BP systolic 109–137; BP diastolic 78–97; PULSE 54–64; RESP 16; TEMP 36.1–36.9; O2SAT 94–98
--- NOTE | 2021-11-04 11:56 | ED.GENADUL_ITS ---
Discharge Plan Disposition Patient Disposition: HOME Condition: Stable Discharge Details Clinical Impression: Lumbar strain Primary Care Provider: Jesse Lopez ED Provider: Linda Chery Home Meds and New Rx's Prescriptions: Continued aspirin 81 mg tablet,delayed release (DR/EC) 81 mg PO DAILY Qty: 90 RF: 4 paroxetine HCl 20 mg tablet 20 mg PO DAILY Qty: 90 RF: 4 isosorbide mononitrate 30 mg tablet extended release 24 hr 30 mg PO DAILY Qty: 30 RF: 2 omeprazole 40 mg capsule,delayed release(DR/EC) 40 mg PO DAILY Qty: 90 RF: 3 rosuvastatin 40 mg tablet 40 mg PO DAILY Qty: 90 RF: 2 allopurinol 300 mg tablet 300 mg PO DAILY Qty: 90 RF: 4 atenolol 100 mg tablet 100 mg PO DAILY Qty: 90 RF: 4 No Action diazepam [Valium] 5 mg tablet 5 mg PO BID PRNQty: 20 RF: 0 Discharge Instructions Instructions: Low Back Strain (ED) Additional Instructions: Apply ice to the affected area several times daily for 20 minutes at a time. Take Tylenol as needed and directed for pain. Prescriptions for pain medication and muscle relaxers have been sent electronically to your pharmacy. Follow-up with your primary care doctor in 1 week. Return to the emergency department with any worsening or new concerning symptoms such as fever, worsening pain, leg weakness or numbness. Discharge Data Discharge Date/Time-TO BE ENTERED AT DEPARTURE: 11/04/21 16:11 Discharge Physician: Linda Chery Medical Decision Making 66-year-old male with a history of hypertension, hyperlipidemia, GERD, gout, right nephrectomy secondary to trauma, kidney disease and hernia repair presents with right-sided lower back pain for 2 days with worsening pain with radiation to his right lower quadrant while standing in line at a store today. No cauda equina symptoms. Patient appears uncomfortable mainly with movement but nontoxic. His vitals are within normal limits. He has reproducible right-sided lower back pain while moving around stretcher with tenderness to palpation to right lumbar region and right buttock. No focal deficits. Neurovascularly intact. Suspect most likely muscle strain, but considering radiation around to his right lower quadrant with dysuria yesterday, also consider UTI, kidney stone. Will place an IV, bolus IV fluids, screening labs, urinalysis, CT renal colic and give Toradol, Valium and oxycodone and reassess. CT abdomen and pelvis notes: IMPRESSION: Status post right nephrectomy. Left renal cysts. No acute abnormality is identified in the abdomen and pelvis. Imaging also reviewed with Dr. Buchanan but notes that the appendix was not visualized but there is no surrounding inflammation to suggest appendicitis. He also has a normal white blood cell count and his pain appears reproducible so appendicitis is less likely. Urinalysis reviewed and negative for infection. Patient reassessed and pain improved but still present. He feels comfortable going home. He was able to ambulate. He was given an additional dose of oxycodone prior to discharge and bottle to go in addition to prescriptions for pain medication and muscle relaxer sent electronically to his pharmacy. Discussed with patient that NSAIDs and steroids would likely be most beneficial in musculoskeletal pain, but considering his right nephrectomy would hold on steroids and limit NSAIDs as much as possible. Advised on the importance of alternating ice and heat. Advised to follow up with the primary care doctor for re-evaluation. Usual and customary return precautions given prior to discharge. Medical Records Medical records reviewed: Yes I reviewed the patient's medical records. Imaging Data Radiologic Study: Radiologist's impression: CT RENAL COLIC WO CLINICAL HISTORY: R flank pain radiating to RLQ. TECHNIQUE: Imaging Protocol: Axial computed tomography images with coronal and sagittal reformatted images were created and reviewed. CONTRAST MATERIAL: Noncontrast COMPARISON: CT CT CHEST/ABD/PEL W from 05/18/[address] BRAIN NECK CTA from 06/30/2021 FINDINGS: ABDOMEN: Lung Bases: Normal where visualized. Liver: Normal attenuation. No measurable mass. Gallbladder and biliary tract: No radiodense calculus or dilation. Pancreas: Normal density, no calcifications or inflammatory process. Spleen: Normal. Kidneys: Status post right nephrectomy. Compensatory hypertrophy of the left kidney. Multiple nodular densities better seen on previous contrast enhanced exam to represent cysts.. No radiodense stones or obstructive uropathy. No masses seen. Adrenal glands: No masses seen. Abdominal Aorta: Abdominal portion non-dilated. PELVIS: Bladder: Symmetric distention, no gross wall thickening. Bowel: No obstruction or bowel wall thickening. Appendix not seen. Peritoneal cavity: No ascites, collection or mesenteric inflammatory response. Soft tissues: Bilateral fatty containing inguinal hernias, unchanged. Bones: Unremarkable for age. IMPRESSION: Status post right nephrectomy. Left renal cysts. No acute abnormality is identified in the abdomen and pelvis. Lab Data Lab results reviewed: Yes I reviewed the patient's lab results. Labs: Laboratory Tests Range/Units 11/04/21 11/04/21 11/04/21 12:13 12:13 14:45 WBC (4.4-10.8) 10^3/uL 5.31 RBC (4.36-5.78) 10^6/uL 4.54 Hgb (13.5-17.5) g/dL 14.1 Hct (40.0-50.0) % 41.1 MCV (80-95) fL 90.5 MCH (27.0-33.0) pg 31.1 MCHC (32.0-36.0) % 34.3 RDW (11.8-14.1) % 12.5 Plt Count (130-400) 10^3/uL 128 L MPV (8.0-11.0) fL 11.4 H Immature Gran % 0.4 Neutrophils % 55.5 Lymphocytes % 30.1 Monocytes % 11.7 Eosinophils % 1.5 Basophils % 0.8 Nucleated RBC % % 0 Absolute Neutrophils (1.2-6.7) 10^3/uL 2.95 Absolute Lymphocytes (1.2-3.4) 10^3/uL 1.60 Absolute Monocytes (0.1-0.8) 10^3/uL 0.62 Absolute Eosinophils (0.0-0.7) 10^3/uL 0.08 Absolute Basophils (0.0-0.2) 10^3/uL 0.04 Sodium (136-145) mmol/L 138 Potassium (3.5-5.1) mmol/L 4.5 Chloride (98-107) mmol/L 101 Carbon Dioxide (21.0-32.0) mmol/L 30.1 Anion Gap (3-11) mmol/L 6.9 BUN (7-18) mg/dL 15 Creatinine (0.70-1.30) mg/dL 1.1 Estimated GFR/1.73 m2 (mL/min/1.73m2) >= 60.00 Glucose (74-106) mg/dL 117 H Calcium (8.5-10.1) mg/dL 8.3 L Total Bilirubin (0.2-1.0) mg/dL 0.4 AST (15-37) U/L 13 L ALT (16-63) U/L 26 Alkaline Phosphatase (46-116) U/L 88 Total Protein (6.4-8.2) g/dL 7.6 Albumin (3.4-5.0) g/dL 4.0 Urine Color (Yellow) Yellow Urine Clarity (Clear) Clear Urine pH (5-8) 7.0 Ur Specific [place] (1.005-1.025) 1.025 Urine Protein (Negative) mg/dL 30 H Urine Ketones (Negative) mg/dL Negative Urine Blood (Negative) Negative Urine Nitrite (Negative) Negative Urine Bilirubin (Negative) Negative Urine Urobilinogen (Up TO 0.2) EU/dL 0.2 Ur Leukocyte Esterase (Negative) Negative Urine RBC (0-2) HPF Negative Urine WBC (0-5) HPF Negative Ur Epithelial Cells (Negative) HPF Rare Urine Crystals (Negative) HPF Negative Urine Bacteria (Negative) HPF Negative Urine Casts (Negative) LPF 0-2 Hyaline Urine Mucus (Negative) Trace Ur Culture Indicated? No Urine Glucose (Negative) mg/dL Negative HPI General Mode of arrival: ambulatory . Date/Time Provider Initiated Documentation: 11/04/21 11:52 . Limitations to Documentation: no limitations . Information obtained by: patient . HPI Narrative: Patient is a 66-year-old male with a history of GERD, hypertension, hyperlipidemia, CVA, right nephrectomy secondary to previous trauma, cystic kidney disease, hernia repair presents for right-sided lower back pain for the past 2 days with sudden onset of worsening right-sided lower back pain with radiation to his right lower quadrant while standing in line at [facility] prior to arrival. He states the past 2 days his lower back pain has been worse with movement and bending. He has not taken any medication for pain. He states today he felt a sudden onset of worsening right- sided lower back pain radiating around to his right side and right lower quadrant that occurred while standing. He states it felt like a spasm and sudden jolt. He does admit to some dysuria yesterday but denies any hematuria, urinary urgency or frequency. He denies any fever, nausea, vomiting or known injury, leg pain, weakness or numbness, bowel or bladder incontinence or saddle anesthesia Related Data Home Medications Medication Instructions Recorded Confirmed aspirin 81 mg tablet,delayed 81 mg PO DAILY #90 tab 10/03/21 11/06/21 release allopurinol 300 mg tablet 300 mg PO DAILY #90 tab-cap 10/21/21 11/06/21 atenolol 100 mg tablet 100 mg PO DAILY #90 tab-cap 10/21/21 11/06/21 isosorbide mononitrate 30 mg 30 mg PO DAILY #30 tab 11/02/21 11/06/21 tablet,extended release 24 hr omeprazole 40 mg capsule,delayed 40 mg PO DAILY #90 tab-cap 11/02/21 11/06/21 release paroxetine HCl 20 mg tablet 20 mg PO DAILY #90 tab 11/02/21 11/06/21 rosuvastatin 40 mg tablet 40 mg PO DAILY #90 tab 11/02/21 11/06/21 diazepam [Valium] 5 mg PO BID PRN #20 tab 11/06/21 Previous Rx's Medication Instructions Recorded aspirin 81 mg tablet,delayed 81 mg PO DAILY #90 tab 10/03/21 release allopurinol 300 mg tablet 300 mg PO DAILY #90 tab-cap 10/21/21 atenolol 100 mg tablet 100 mg PO DAILY #90 tab-cap 10/21/21 isosorbide mononitrate 30 mg 30 mg PO DAILY #30 tab 11/02/21 tablet,extended release 24 hr omeprazole 40 mg capsule,delayed 40 mg PO DAILY #90 tab-cap 11/02/21 release paroxetine HCl 20 mg tablet 20 mg PO DAILY #90 tab 11/02/21 rosuvastatin 40 mg tablet 40 mg PO DAILY #90 tab 11/02/21 diazepam [Valium] 5 mg PO BID PRN #20 tab 11/06/21 Allergies Allergy/AdvReac Type Severity Reaction Status Date / Time No Known Allergies Allergy Verified 11/06/21 06:16 General Stated Complaint: Nk/Back Pain ARIELLA: 3 Review of Systems All systems reviewed & are unremarkable except as noted in HPI and below Constitutional Constitutional: Reports as per HPI, Denies chills and Denies fever(s) Eyes Eyes: Denies blurry vision ENT Ears, Nose, Mouth, and Throat: Denies dizziness, Denies sore throat and Denies throat swelling Cardiovascular Cardiovascular: Denies chest pain and Denies dyspnea Respiratory Respiratory: Denies cough and Denies dyspnea Gastrointestinal Gastrointestinal: Reports abdominal pain, Denies diarrhea and Denies vomiting Genitourinary Genitourinary: Denies hematuria and Denies dysuria Musculoskeletal Musculoskeletal: Reports back pain and Denies numbness Integumentary/Breasts Skin/Breast: Denies lesions and Denies rash Neurologic Neurologic: Denies dizziness, Denies localized weakness and Denies numbness Allergic/Immunologic Allergic/Immunologic: Denies throat swelling PFSH All Active Problems (Updated 11/06/21 @ 09:09 by Ifeanyi Chaves MD) Lumbar strain (Acute) Back pain (Acute) Abdominal pain (Acute) Incidental pulmonary nodule (Acute) Lumbar disc herniation (Acute) Pneumonia (Acute) Episode of syncope (Chronic) Acute cerebrovascular accident (CVA) (Acute) Hyperlipidemia (Acute) Insomnia (Acute) Body aches (Chronic 07/13/17) Chronic interstitial cystitis (Chronic) 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 Diarrhea (Chronic 02/20/18) Essential hypertension (Chronic) External hemorrhoids (Chronic 07/20/17) Gastroesophageal reflux disease (Chronic 06/01/17) Gout (Chronic) Hearing loss (Chronic 08/01/13) History of unilateral nephrectomy (Chronic) Hyperlipidemia (Chronic 08/01/13) Increased BMI (body mass index) (Chronic 11/14/17) Insomnia (Chronic) LLQ discomfort (Chronic 03/20/18) Intermittent, chronic Memory impairment (Chronic 08/01/13) Obstructive sleep apnea syndrome (Chronic) C-Pap Shoulder pain (Chronic 08/01/13) Medical History Body aches (07/13/17) Chronic interstitial cystitis 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 Depressive disorder (08/01/13) Diarrhea (02/20/18) Essential hypertension External hemorrhoids (07/20/17) Gastroesophageal reflux disease (06/01/17) Gout Hearing loss (08/01/13) History of unilateral nephrectomy Hyperlipidemia (08/01/13) Increased BMI (body mass index) (11/14/17) Insomnia LLQ discomfort (03/20/18) Intermittent, chronic Memory impairment (08/01/13) Obstructive sleep apnea syndrome C-Pap Primary osteoarthritis of both knees (10/05/16) Shoulder pain (08/01/13) Surgical History Hemorrhoidectomy History of hemorrhoidectomy Nephrectomy (~1997) right S/P herniorrhaphy (~04/2016) [facility] Family History Mother No problems noted. Social History (Updated 11/02/21 @ 07:18 by Sonia Flores RN, RN) Smoking/Tobacco Use Status: Never Smoking risk assessment performed?: Yes Alcohol Intake: never Drug use: Never Substance use type: does not use Caregiver/Support person: No Household members: spouse Housing: other Details: trailer Communication Needs: None Pets and animals: No What is your relationship status?: How often do you talk on the phone with friends or family?: once per week How often do you get together with friends or relatives?: once per week Panel score (0-1 are the most socially isolated patients): 1 What type of physical activity do you participate in: walking Duration: 45-60 minutes/day Frequency: daily Seatbelt use: always Drive intox or ride w/intox regional driver: No Do you feel safe at home: Yes Do you feel safe in your relationship?: Yes Exam Const General: cooperative and no acute distress HENMT Head: normal to inspection Face and sinus: normal facial exam Eyes General: appearance normal, both eyes and all related structures EOM: EOM intact bilaterally Neck Neck: normal visual inspection and No submandibular swelling Lymphatic: no lymphadenopathy noted Chest Chest: normal inspection of the chest and no tenderness Resp Effort & Inspection: normal respiratory effort and able to speak in complete sentences Auscultation: clear to auscultation bilaterally Cardio Rate: regular rate Rhythm: regular rhythm GI Inspection: normal to inspection Palpation: soft, not firm, not rigid and nontender Auscultation: normal bowel sounds Male General Exam: Yes normal external exam Penis: normal penis Scrotum: scrotum normal Testes: no testicular mass, no testicular swelling and no testicular tenderness Back/Spine/Pelvis Thoracic/Lumbar Spine: thoracic and lumbar spine normal to inspection Pelvis: no pain with anterior-posterior compression Back/spine/pelvis image: 1. Tenderness to palpation to right lower back and right upper buttock. There is no erythema, edema, ecchymosis, rash or lesions. Skin General skin exam: no rashes or lesions noted Neuro General: patient alert, patient awake and patient oriented x3 Cognition: normal cognition Speech: speech normal Motor: muscle tone normal throughout Sensory Exam: no sensory deficits noted DTR's: Rt Patellar: 1+, Lt Patellar: 1+, Rt Ankle: 1+ and Lt Ankle: 1+ Plantar Reflexes: Equivocal: bilateral (negative babinski b/l ) Extrem General: normal to inspection, full ROM, capillary refill normal, no calf tenderness bilaterally and no edema Other: Bilateral DP/PT pulses intact. Psych Appearance: grossly normal Mental Status: mental status grossly normal Speech and Movement: speech and movement normal Affect: normal affect Course Vital Signs Vital signs: Vital Signs Temperature 97.0 F L 11/04/21 11:52 Pulse 62 11/04/21 11:52 Respiratory Rate 16 11/04/21 11:52 Blood Pressure 137/97 H 11/04/21 11:52 Pulse Oximetry 98 11/04/21 11:52 Temperature 97.0 F L 11/04/21 11:52 Temperature Source Temporal Artery Scan 11/04/21 11:52 Pulse 62 11/04/21 11:52 Respiratory Rate 16 11/04/21 11:52 Blood Pressure 137/97 H 11/04/21 11:52 Blood Pressure Position Sitting 11/04/21 11:52 Pulse Oximetry 98 11/04/21 11:52 Oxygen Delivery Method Room Air 11/04/21 11:52 Oxygen Flow Rate 0 11/04/21 11:52
--- NOTE | 2021-11-04 12:15 | DI.CT_ITS ---
Exam(s) CT RENAL COLIC WO EXAM: CT RENAL COLIC WO CLINICAL HISTORY: R flank pain radiating to RLQ. TECHNIQUE: Imaging Protocol: Axial computed tomography images with coronal and sagittal reformatted images were created and reviewed. CONTRAST MATERIAL: Noncontrast COMPARISON: CT CT CHEST/ABD/PEL W from 05/18/[address] BRAIN NECK CTA from 06/30/2021 FINDINGS: ABDOMEN: Lung Bases: Normal where visualized. Liver: Normal attenuation. No measurable mass. Gallbladder and biliary tract: No radiodense calculus or dilation. Pancreas: Normal density, no calcifications or inflammatory process. Spleen: Normal. Kidneys: Status post right nephrectomy. Compensatory hypertrophy of the left kidney. Multiple nodul ar densities better seen on previous contrast enhanced exam to represent cysts.. No radiodense stone s or obstructive uropathy. No masses seen. Adrenal glands: No masses seen. Abdominal Aorta: Abdominal portion non-dilated. PELVIS: Bladder: Symmetric distention, no gross wall thickening. Bowel: No obstruction or bowel wall thickening. Appendix not seen. Peritoneal cavity: No ascites, collection or mesenteric inflammatory response. Soft tissues: Bilater al fatty containing inguinal hernias, unchanged. Bones: Unremarkable for age. IMPRESSION: Status post right nephrectomy. Left renal cysts. No acute abnormality is identified in the abdomen and pelvis. RADIATION DOSE DELIVERED: 920.48mGy.cm Total DLP DATA REPOSITORY: All CT scans at this facility are submitted to the National Radiology Data Registry (NRDR) Dose Index Registry (DIR) with the [employer] (ACR). RADIATION OPTIMIZATION: All CT scans at this facility use at least one of these dose optimization te chniques: automated exposure control; mA and/or kV adjustment per patient size (includes targeted exa ms where dose is matched to clinical indication); or iterative reconstruction.
[2021-11-04 12:20] LABS: Abs Immature Grans 0.02 10^3/uL (0.0-0.06); Absolute Basophil Count 0.04 10^3/uL (0.0-0.2); Absolute Eosinophil Count 0.08 10^3/uL (0.0-0.7); Absolute Monocyte Count 0.62 10^3/uL (0.1-0.8); Absolute Neutrophil Count 2.95 10^3/uL (1.2-6.7); Basophils % 0.8; Eosinophils % 1.5; HCT 41.1 % (40.0-50.0); HGB 14.1 g/dL (13.5-17.5); Immature Grans % 0.4; Lymphocytes % 30.1; MCH 31.1 pg (27.0-33.0); MCHC 34.3 % (32.0-36.0); MCV 90.5 fL (80-95); MPV 11.4 fL (8.0-11.0); Monocytes % 11.7; Neutrophils % 55.5; Nucleated RBC 0 %; Platelet Count 128 10^3/uL (130-400); RBC 4.54 10^6/uL (4.36-5.78); RDW 12.5 % (11.8-14.1); RDW-SD 41.1 fL; WBC 5.31 10^3/uL (4.4-10.8)
[2021-11-04] MEDS: Normal Saline 1,000 ML 1000 ML IV (12:30)
[2021-11-04 12:31] LABS: ALT 26 U/L (16-63); AST 13 U/L (15-37); Alkaline Phosphatase 88 U/L (46-116); Anion Gap 6.9 mmol/L (3-11); BUN 15 mg/dL (7-18); Bilirubin, Total 0.4 mg/dL (0.2-1.0); CO2 30.1 mmol/L (21.0-32.0); CREATININE 1.1 mg/dL (0.70-1.30); Calcium 8.3 mg/dL (8.5-10.1); Chloride 101 mmol/L (98-107); Glucose 117 mg/dL (74-106); Potassium 4.5 mmol/L (3.5-5.1); Sodium 138 mmol/L (136-145); Total Protein 7.6 g/dL (6.4-8.2)
[2021-11-04] MEDS: Ketorolac 30 MG/ML VIAL IVP (12:32)
[2021-11-04] MEDS: diazePAM 5 MG TAB PO (12:34)
[2021-11-04] MEDS: oxyCODONE 10 MG TAB PO (12:37)
--- NOTE | 2021-11-04 12:38 | NUR.NOTE ---
Nursing Note: Pt attempted to give urine sample but unable to d/t increase pain w/movement. IVF & meds as ordered. Pt to CT via stretcher w/tech.
--- NOTE | 2021-11-04 12:53 | NUR.NOTE ---
Nursing Note:Pt return from CT, no change in pain, spouse at bedside, cont. to monitor.
[2021-11-04] MEDS: Lidocaine 2% Jelly 6 ML SYR (14:35)
[2021-11-04 14:51] LABS: Bilirubin Negative (Negative); Blood Negative (Negative); Clarity Clear (Clear); Glucose Negative (Negative); Ketones Negative (Negative); Leukocyte Esterase Negative (Negative); Nitrite Negative (Negative); Specific Gravity 1.025 (1.005-1.025); Urobilinogen 0.2 EU/dL (Up TO 0.2)
[2021-11-04 15:01] LABS: Bacteria Negative HPF (Negative); C & S Indicated? No; Casts 0-2 Hyaline LPF (Negative); Crystals Negative HPF (Negative); Epithelial Cells Rare HPF (Negative); Mucus Trace (Negative); RBC Negative HPF (0-2); WBC Negative HPF (0-5)
[2021-11-04] MEDS: oxyCODONE 5 MG TAB PO (15:55)
== END 2021-11-04 16:11 | disposition home or self-care (01) ==
PROVIDERS: Emergency Provider Physician Assistant; PCP Family Medicine
DX: S39.012A Strain of muscle, fascia and tendon of lower back, initial encounter (principal); X58.XXXA Exposure to other specified factors, initial encounter; R10.31 Right lower quadrant pain; R30.0 Dysuria; Z90.5 Acquired absence of kidney
CPT/HCPCS: 36415; 51701; 80053; 96361; 96374; 99284; 74176; 81003; 81015; 85025; J1885

== ENCOUNTER 2021-11-06 06:02 | Emergency (ER) | payer MEDICARE, SELFPAY ==
[2021-11-06] VITALS (34 sets, daily range): BP systolic 112–148; BP diastolic 75–114; PULSE 60–67; RESP 11–98; TEMP 36.3–36.4; O2SAT 93–100
--- NOTE | 2021-11-06 06:15 | RT.EKG_ITS ---
APPROVED REPORT Exam: Resting ECG Reason for Exam: back pain Patient Location: E HR:64 bpm ECG Measurements Heart Rate 64 AXIS DC 179 P 15 QRSd 111 QRS 25 QT 401 T 49 QTc 414 Conclusion Sinus rhythm...normal P axis, V-rate 60- 99
--- NOTE | 2021-11-06 06:27 | ED.GENADUL_ITS ---
Discharge Plan Disposition Patient Disposition: HOME Condition: Stable Discharge Details Clinical Impression: Back pain, Abdominal pain, Incidental pulmonary nodule, Lumbar disc herniation Primary Care Provider: Jesse Lopez ED Provider: Ifeanyi Chaves Home Meds and New Rx's Prescriptions: New diazepam [Valium] 5 mg tablet 5 mg PO BID PRNQty: 20 RF: 0 Continued aspirin 81 mg tablet,delayed release (DR/EC) 81 mg PO DAILY Qty: 90 RF: 4 paroxetine HCl 20 mg tablet 20 mg PO DAILY Qty: 90 RF: 4 isosorbide mononitrate 30 mg tablet extended release 24 hr 30 mg PO DAILY Qty: 30 RF: 2 omeprazole 40 mg capsule,delayed release(DR/EC) 40 mg PO DAILY Qty: 90 RF: 3 rosuvastatin 40 mg tablet 40 mg PO DAILY Qty: 90 RF: 2 allopurinol 300 mg tablet 300 mg PO DAILY Qty: 90 RF: 4 atenolol 100 mg tablet 100 mg PO DAILY Qty: 90 RF: 4 Discontinued oxycodone 5 mg tablet 5 mg PO Q6H PRN (Reason: pain) Qty: 10 RF: 0 methocarbamol 500 mg tablet 500 mg PO Q6H PRN (Reason: muscle spasm) Qty: 14 RF: 0 Discharge Instructions Instructions: Diazepam (By mouth), Lumbar Disc Herniation (ED), Abdominal Pain (ED) Additional Instructions: CT imaging revealed incidental findings of pulmonary nodules. These appear stable compared to prior imaging. Please follow-up with your primary care physician to discuss these findings. CT imaging revealed questionable incidental finding of diminished enhancement of the myocardium at the left ventricular with suggestion of mild thinning of the heart wall. This may be a result of artifact and poor image quality versus related more significant heart disease. Levels to measure cardiac imaging or blood today were normal. Please follow-up with your primary care physician and cardiology to discuss findings of the CT. CT did reveal loose stool the colon which may be related to impending diarrheal state. CT imaging of your lumbar spine did reveal a 5 mm hypodense subendplate lesion at the L3 inferior endplate on the right, this is similar to April 2021, and probably represents a focus of lumbar disc herniation. You were provided a copy of your CT imaging radiologic interpretations today. These are preliminary and notations in the more official interpretation will be performed on Monday. Please be sure to follow-up with your primary care physician and review all findings of CT imaging. Labs today revealed mild thrombocytopenia, this is a low platelet count. This has been present on prior labs. Please discuss this with your primary care doctor. Please take ibuprofen over the counter. Take 600mg by mouth every 6 hours as needed for pain. Please use lidocaine patch - these are available [id number]. Dose according to label. Please start taking Valium. 1 tab, by mouth, twice a day as needed for spasm and pain in your lower back. Please stop taking methocarbamol and oxycodone. Please contact your primary care physician to arrange follow-up. Call first thing on Monday. Return to the ER immediately for any worsening or new concerning symptoms. Discharge Data Discharge Date/Time-TO BE ENTERED AT DEPARTURE: 11/06/21 09:51 Medical Decision Making <Cesario Villatoro MD - Last Filed: 11/06/21 07:51> 66 yo male with hx of htn, hld, cva, solitary kidney,who comes in with complaints of severe back and abdominal pain. It started about 2 days ago, was seen in the ED and had labs and a CT which were unremarkable and d/c'd with pain meds. despite this his pain has significantly been worsening and he hasn't been able to sleep. He localizes the pain to the upper lumbar area and radiates to the abdomen. He has not had fevers, chest pain or dyspnea. He has no erythema or rashes of the back, no cva tenderness. HE is diffusely tender all of his abodmen, it is not distended but he states the pain is severe even with light palpation. Given his worsening severe pain concern for potential mesenteric ischemia among other pathologies such as pancreatitis, kidney stone and less lik vicky nstemi. Will obtain ekg, labs and CTA to further evaluate. labs unremarkable, awaiting ct results, he feels significantly better after one dose of dilaudid, has mild tenderness no mainly on the left abdomen. Differential Diagnosis Differential Diagnosis: mesenteric ischemia, pancreatitis, dissection Medical Records Medical records reviewed: Yes I reviewed the patient's medical records. Lab Data Lab results reviewed: Yes I reviewed the patient's lab results. ECG Data Attestation: I personally reviewed and interpreted this ECG (s) as follows: Prior ECG tracings: available for review Interpretation: sinus rhythm, rate of 64, no acute st t wave ischemic findings <Ifeanyi Chaves MD - Last Filed: 11/10/21 08:08> 835 --care signed out by Dr. Villatoro, please see his documentation regarding initial ED presentation course. Plan at signout was to follow-up on CTA of the chest, abdomen pelvis as well as CT of the thoracic and lumbar spine. Labs reviewed at time of signout reveal mild thrombocytopenia of 115 -this is stable over years on review of prior labs. CTA of the chest was interpreted by radiology: IMPRESSION: 1. Apparent diminished enhancement of the myocardium at the left ventricular vertex with suggestion of mild thinning. May be artifactual versus related to a region of age indeterminate myocardial ischemia. Please correlate clinically and with patient's history. 2. Limited evaluation of the ascending aorta due to pulsatility artifact. Within this limitation, no evidence of aortic aneurysm or dissection in the thoracic aorta. 3. Stable small pulmonary nodules measuring up to 5 mm since 05/18/2021. As per Fleischner Society 2017 guidelines for follow-up and management of pulmonary nodules: For patients at low risk (minimal or absent history of smoking and of other known risk factors), no routine follow-up is indicated. For patients at high risk (history of smoking or of other known risk factors), consider optional CT Chest at 12 months (from the time of the original study). (Reference: [place]) 4. Reference separately dictated CT angiogram of the Abdomen and Pelvis for intra-abdominal findings. CTA Abdomen and Pelvis was interpreted by radiology: FINDINGS: Aorta: No evidence of aortic aneurysm or dissection. Aortic calcified and noncalcified mild to moderate atherosclerotic disease. 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 Patent celiac artery. Patent inferior mesenteric artery with mild proximal atherosclerotic disease. Renal arteries: Status post right nephrectomy with opacification of a short right renal artery stump. Patent left renal artery. Right iliac arteries: No occlusion or significant stenosis. Left iliac arteries: No occlusion or significant stenosis. Liver: No mass. Gallbladder and bile ducts: Unremarkable. No calcified stones. No ductal dilation. Pancreas: Unremarkable. No mass. No ductal dilation. Spleen: Heterogeneous enhancement of the spleen may be related to bolus timing, which makes underlying splenic lesions difficult to entirely exclude. Adrenal glands: Unremarkable. No mass. Kidneys and ureters: Redemonstrated left renal cysts, largest of 2.6 cm exophytic cyst posterior left kidney. No hydronephrosis. Stomach and bowel: 6 mm peripherally calcified structure anterior to the descending colon, may be sequelae of prior omental infarct or infection. Loose stool in the ascending, transverse, and proximal descending colon. No bowel wall thickening. No bowel obstruction. Appendix: Not clearly seen. Intraperitoneal space: Unremarkable. No free air. No significant fluid collection. Lymph nodes: Unremarkable. No enlarged lymph nodes. Urinary bladder: Unremarkable. No mass. Reproductive: Prostatic calcifications are noted. Bones/joints: Multilevel degenerative changes in the spine. Soft tissues: Moderate left and small right fat containing inguinal hernias. IMPRESSION: 1. No evidence of aortic aneurysm or acute dissection. Aortic and branch vessel atherosclerotic disease. 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 2. Loose stool in the ascending, transverse, and proximal descending colon. May be related to impending diarrheal state. 3. Other (less critical/noncritical/incidental) findings as above; please refer to the body of report for further details. 4. Reference separately dictated CT angiogram of the chest. CT of the thoracic spine was interpreted by radiology: No acute fracture or listhesis, multilevel spondylosis. CT of the thoracic spine was interpreted by radiology: No acute fractures or listhesis. Degenerative changes. 5 mm hypodense subendplate lesion at the L3 inferior endplate on the right, similar to April 2021, probably focus of disc herniation. Plan to treat with lidocaine patch, NSAIDs, will switch methocarbamol to Valium. DC oxycodone. F/UU PCP and PT. HPI <Cesario Villatoro MD - Last Filed: 11/06/21 07:51> General Mode of arrival: wheelchair . Date/Time Provider Initiated Documentation: 11/06/21 06:04 . Limitations to Documentation: no limitations . Information obtained by: patient . History of Present Illness 66 year old M presents to the emergency department with the chief complaint of back pain, described as severe, with intensity rated at 9. Quality is described as sharp, and is localized to the back. Patient abdomen. Patient started experiencing this day(s) (2) and it has been constant. No relieving factors improve symptom(s), No exacerbating factors reported . Related Data Home Medications Medication Instructions Recorded Confirmed aspirin 81 mg tablet,delayed 81 mg PO DAILY #90 tab 10/03/21 11/08/21 release allopurinol 300 mg tablet 300 mg PO DAILY #90 tab-cap 10/21/21 11/08/21 atenolol 100 mg tablet 100 mg PO DAILY #90 tab-cap 10/21/21 11/08/21 isosorbide mononitrate 30 mg 30 mg PO DAILY #30 tab 11/02/21 11/08/21 tablet,extended release 24 hr omeprazole 40 mg capsule,delayed 40 mg PO DAILY #90 tab-cap 11/02/21 11/08/21 release paroxetine HCl 20 mg tablet 20 mg PO DAILY #90 tab 11/02/21 11/08/21 rosuvastatin 40 mg tablet 40 mg PO DAILY #90 tab 11/02/21 11/08/21 diazepam [Valium] 5 mg PO BID PRN #20 tab 11/06/21 11/08/21 Previous Rx's Medication Instructions Recorded aspirin 81 mg tablet,delayed 81 mg PO DAILY #90 tab 10/03/21 release allopurinol 300 mg tablet 300 mg PO DAILY #90 tab-cap 10/21/21 atenolol 100 mg tablet 100 mg PO DAILY #90 tab-cap 10/21/21 isosorbide mononitrate 30 mg 30 mg PO DAILY #30 tab 11/02/21 tablet,extended release 24 hr omeprazole 40 mg capsule,delayed 40 mg PO DAILY #90 tab-cap 11/02/21 release paroxetine HCl 20 mg tablet 20 mg PO DAILY #90 tab 11/02/21 rosuvastatin 40 mg tablet 40 mg PO DAILY #90 tab 11/02/21 diazepam [Valium] 5 mg PO BID PRN #20 tab 11/06/21 Allergies Allergy/AdvReac Type Severity Reaction Status Date / Time No Known Allergies Allergy Verified 11/08/21 13:00 General Stated Complaint: Abd Prob ARIELLA: 3 Review of Systems <Cesario Villatoro MD - Last Filed: 11/06/21 07:51> All systems reviewed & are unremarkable except as noted in HPI and below Constitutional Constitutional: Denies chills, Denies fever(s) and Denies weakness Cardiovascular Cardiovascular: Denies chest pain and Denies dyspnea Respiratory Respiratory: Denies cough and Denies dyspnea Gastrointestinal Gastrointestinal: Denies vomiting Neurologic Neurologic: Denies weakness PFSH <Cesario Villatoro MD - Last Filed: 11/06/21 07:51> All Active Problems (Updated 11/08/21 @ 12:11 by Jesse Lopez MD) Lumbar strain (Acute) Incidental pulmonary nodule (Acute) Pneumonia (Acute) Episode of syncope (Chronic) Acute cerebrovascular accident (CVA) (Acute) Hyperlipidemia (Acute) Insomnia (Acute) Chronic interstitial cystitis (Chronic) 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 Family History Mother No problems noted. Social History (Updated 11/02/21 @ 07:18 by Sonia Flores RN, RN) Smoking/Tobacco Use Status: Never Smoking risk assessment performed?: Yes Alcohol Intake: never Drug use: Never Substance use type: does not use Caregiver/Support person: No Household members: spouse Housing: other Details: trailer Communication Needs: None Pets and animals: No What is your relationship status?: How often do you talk on the phone with friends or family?: once per week How often do you get together with friends or relatives?: once per week Panel score (0-1 are the most socially isolated patients): 1 What type of physical activity do you participate in: walking Duration: 45-60 minutes/day Frequency: daily Seatbelt use: always Drive intox or ride w/intox pizza 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: No Do you feel safe at home: Yes Do you feel safe in your relationship?: Yes Exam <Cesario Villatoro MD - Last Filed: 11/06/21 07:51> Const General: no acute distress Orientation: alert [facility] Head: normal to inspection Ears: external ears normal General nose exam: external nose normal Mouth: moist mucous membranes Eyes General: appearance normal, both eyes and all related structures Neck Neck: normal visual inspection Resp Effort & Inspection: normal respiratory effort and able to speak in complete sentences Cardio Rate: regular rate GI Palpation: tender Skin General skin exam: no rashes or lesions noted Neuro General: patient alert and patient oriented x3 Extrem General: normal to inspection Psych Mental Status: mental status grossly normal Course <Cesario Villatoro MD - Last Filed: 11/06/21 07:51> Vital Signs Vital signs: Vital Signs Temperature 36.3 C L 11/06/21 06:12 Pulse 64 11/06/21 06:12 Respiratory Rate 98 H 11/06/21 06:12 Pulse Oximetry 98 11/06/21 06:12 Temperature 36.3 C L 11/06/21 06:12 Pulse 64 11/06/21 06:12 Respiratory Rate 98 H 11/06/21 06:12 Respiratory Effort Non-Labored 11/06/21 06:17 Pulse Oximetry 98 11/06/21 06:12 Pain Level 10 11/06/21 06:12 Sign Out <Cesario Villatoro MD - Last Filed: 11/06/21 07:51> Sign Out Data: Sign Out Comment: continues to have back and abdominal pain that is severely worse, pending cta and reassessment Last updated by Cesario Villatoro MD at 11/06/21 06:33
[2021-11-06 06:30] LABS: Lactate 1.4 mmol/L (0.6-1.4)
[2021-11-06] MEDS: Normal Saline 1,000 ML 1000 ML IV (06:34)
[2021-11-06] MEDS: HYDROmorphone 2 MG/ML VIAL 1 MG IVP (06:34)
[2021-11-06 06:35] LABS: Abs Immature Grans 0.01 10^3/uL (0.0-0.06); Absolute Basophil Count 0.03 10^3/uL (0.0-0.2); Absolute Eosinophil Count 0.08 10^3/uL (0.0-0.7); Absolute Lymphocyte Count 1.36 10^3/uL (1.2-3.4); Absolute Monocyte Count 0.64 10^3/uL (0.1-0.8); Absolute Neutrophil Count 4.21 10^3/uL (1.2-6.7); Basophils % 0.5; Eosinophils % 1.3; HGB 13.6 g/dL (13.5-17.5); Immature Grans % 0.2; Lymphocytes % 21.5; MCH 30.8 pg (27.0-33.0); MCV 90.5 fL (80-95); MPV 11.7 fL (8.0-11.0); Monocytes % 10.1; Neutrophils % 66.4; Nucleated RBC 0 %; Platelet Count 115 10^3/uL (130-400); RBC 4.42 10^6/uL (4.36-5.78); RDW 12.5 % (11.8-14.1); RDW-SD 41.1 fL; WBC 6.33 10^3/uL (4.4-10.8)
[2021-11-06 06:47] LABS: ALT 25 U/L (16-63); AST 18 U/L (15-37); Albumin 4.3 g/dL (3.4-5.0); Alkaline Phosphatase 104 U/L (46-116); Anion Gap 8.6 mmol/L (3-11); BUN 12 mg/dL (7-18); Bilirubin, Total 0.6 mg/dL (0.2-1.0); CO2 28.4 mmol/L (21.0-32.0); CREATININE 1.1 mg/dL (0.70-1.30); Calcium 8.9 mg/dL (8.5-10.1); Chloride 100 mmol/L (98-107); Glucose 115 mg/dL (74-106); Lipase 186 U/L (73-393); Magnesium 2.2 mg/dL (1.8-2.4); Potassium 4.7 mmol/L (3.5-5.1); Sodium 137 mmol/L (136-145); Total Protein 8.1 g/dL (6.4-8.2)
[2021-11-06 06:52] LABS: Troponin I < 50 ng/L (<or=60)
--- NOTE | 2021-11-06 07:40 | DI.CT_ITS ---
Exam(s) CT THORACIC LUMBAR SPINE REC EXAM: CT THORACIC LUMBAR SPINE REC CLINICAL HISTORY: please do recons from cta TECHNIQUE: COMPARISON: CT CT RENAL COLIC WO from 11/04/2021 FINDINGS: THORACIC SPINAL COLUMN: No evidence of compression fracture or listhesis. No osseous lesions. No si gnificant spinal canal stenosis. LUMBOSACRAL SPINAL COLUMN: There is no evidence of acute fracture nor listhesis. No pars defects. M ild disc space narrowing at L5-S1 level. Some posterior annular bulging. Facet arthropathy evident at the lower 2 levels. No facet malalignment. No osseous lesions. No sacral fracture. IMPRESSION: No fractures evident in the thoracolumbar spinal column.
--- NOTE | 2021-11-06 07:40 | DI.CT_ITS ---
Exam(s) CT THORAX ABD/PEL CTA EXAM: CT THORAX ABD/PEL CTA CLINICAL HISTORY: severe back and abdominal pain. TECHNIQUE: Imaging Protocol: Axial computed tomography images with coronal and sagittal reformatted images were created and reviewed CONTRAST MATERIAL: Intravenous: Omnipaque 350 Contrast volume:82 ml. Oral: None COMPARISON: CT CT RENAL COLIC WO from 11/04/2021 FINDINGS: CHEST: AORTA: There is no evidence of thoracic aortic aneurysm.. No evidence of dissection. No evidence of significant stenosis at the origin of the great vessels off the aortic arch. Diameter of the descen ding thoracic aorta is upper normal. No significant atherosclerotic involvement. ABDOMINAL AORTA: There is atherosclerotic involvement of the infrarenal abdominal aorta with lack of normal distal aortic tapering and an element of arterial megaly of both common iliac arteries. The d istal left common iliac artery exhibits atherosclerotic involvement and diameter 1.5 cm. There is no significant stenosis at the junction of the common and external iliac arteries nor within the media operator al iliac arteries and these vessels are patent as are both common femoral arteries without evidence o f stenosis nor aneurysm in these vessels. The inferior mesenteric artery is patent. The celiac michaelle ry is patent. There is mild mild-moderate focal stenosis at the origin of the superior mesenteric ar luis due to left-sided wall plaque at this level. There is no significant stenosis more distally in this vessel nor evidence of SMA embolus. The solitary left renal artery is patent without evidence of significant ostial nor more distal steno sis. There has been previous right nephrectomy. Maximum external diameter of the abdominal aorta is 2.5 cm. LUNGS: Mild increased markings in the posterior segment of the right upper lobe but without confluent infiltrate at this level. Also mild increased markings subpleural location left lower lobe but with out prominent infiltrate and there are no pleural effusions on either side. There are no significant focal findings in the trachea and mainstem bronchi. No bronchiectasis.. MEDIASTINUM: There is no hilar nor mediastinal adenopathy. Visualized thyroid unremarkable. CARDIAC: Heart size is normal. There is no pericardial effusion. AORTA: Caliber of the thoracic aorta is within normal limits.There is no evidence of aortic dissectio n. ABDOMEN: There is no evidence of abdominal aortic aneurysm nor dissection.There is no aneurysmal dilatation of the common iliac arteries.The celiac and superior mesenteric arteries are patent. There is no ascites. LIVER: There is mild hepatic steatosis. No discrete focal hepatic lesions. GALLBLADDER/BILIARY: No obvious gallbladder pathology. CBD is not dilated. PANCREAS: No evidence of pancreatic mass nor dilatation of the pancreatic duct. SPLEEN: Spleen is not enlarged. There are no intrasplenic lesions. Splenic and portal veins are brown nt. ADRENALS: There are no significant adrenal masses. KIDNEYS: There has been right nephrectomy. No abnormal tissue in the right renal fossa. The left ki dney exhibits normal size.. There is an exophytic cyst off the posterior cortex measuring 2 x 2 cm.. There is another smaller partially exophytic cortical cyst anterolaterally measuring 9 millimeters. There are no solid renal masses and there are no calculi in left kidney nor hydronephrosis. There is a solitary left ureter which is not dilated. No obvious abnormality in the urinary bladder. ABDOMINAL AORTA: As above. LYMPH NODES: There is no retroperitoneal nor para-aortic adenopathy. No obvious mesenteric masses. ABDOMINAL WALL: No evidence of significant anterior abdominal wall hernia. There are bilateral fat o nly containing inguinal hernias. GI: In the right-side of the colon there appears to be a focal narrowing (series 5/image 76), possibl y significant. This is in the prox is probably in the proximal transverse colon. Colonoscopy requir ed.The appendix is difficult to visualize is separate structure here. No evidence of obvious appendi citis. No small bowel obstruction. PELVIS: LYMPH NODES: There is no intrapelvic nor inguinal adenopathy. GI: No evidence of sigmoid diverticulitis. URINARY BLADDER: No calculi nor masses evident REPRODUCTIVE: Prostate size is normal. Contains central calcifications. No obturator adenopathy. S eminal vesicles appear unremarkable. OSSEOUS: No significant osseous lesions. IMPRESSION: 1. No evidence of aortic aneurysm nor dissection. However, there is atherosclerotic involvement of t he distal half of the abdominal aorta with lack of typical normal tapering and also an element of art erial megaly of both common iliac arteries, more so on the left side where there is also atherosclero tic involvement of the distal left common iliac artery and diameter of 1.5 cm. There is no tight joseph nosis in the iliac arteries and no dissection. Common femoral arteries appear unremarkable bilateral ly. 2. There has been right nephrectomy. No abnormal tissue mass in the right renal fossa. The remainin g left kidney exhibits normal size and no evidence of renal artery stenosis. Contains 2 simple cysts as described above. No other focal left kidney findings and no hydronephrosis. No obvious abnormal ity in the urinary bladder. 3. Incidentally noted is a possible focal narrowing of the colon in what appears to be the proximal h iglesia of the transverse colon. Although this may just be a contraction, the possibility that this is a n incidental finding of focal stricture-neoplasm is a consideration and follow-up colonoscopy is kaylin mmended. 4. Appendix is difficult to visualize as a separate structure here but there is no evidence of obviou s acute appendicitis. RADIATION DOSE DELIVERED: Total DLP DATA REPOSITORY: All CT scans at this facility are submitted to the National Radiology Data Registry (NRDR) Dose Index Registry (DIR) with the [employer] (ACR). RADIATION OPTIMIZATION: All CT scans at this facility use at least one of these dose optimization te chniques: automated exposure control; mA and/or kV adjustment per patient size (includes targeted exa ms where dose is matched to clinical indication); or iterative reconstruction.
[2021-11-06] MEDS: Omnipaque 350 MG/ML 100 ML BTL IJ (07:50)
[2021-11-06] MEDS: Normal Saline Flush 10 ML SYR IVP (07:51)
[2021-11-06 07:56] LABS: Bilirubin Negative (Negative); Blood Negative (Negative); Clarity Clear (Clear); Glucose Negative (Negative); Ketones Negative (Negative); Leukocyte Esterase Negative (Negative); Nitrite Negative (Negative); Specific Gravity 1.015 (1.005-1.025); Urobilinogen 0.2 EU/dL (Up TO 0.2); pH 7.5 (5-8)
--- NOTE | 2021-11-06 08:38 | DI.VRAD_ITS ---
PROCEDURE INFORMATION: Exam: CTA Chest With Contrast Exam date and time: 11/06/2021 6:26 AM Age: 66 years old Clinical indication: Other: Severe back and abdominal pain TECHNIQUE: Imaging protocol: Computed tomographic angiography of the chest with contrast. 3D rendering (Not supervised by radiologist): MIP and/or 3D reconstructed images were created by the technologist. Radiation optimization: All CT scans at this facility use at least one of these dose optimization techniques: automated exposure control; mA and/or kV adjustment per patient size (includes targeted exams where dose is matched to clinical indication); or iterative reconstruction. Contrast material: OMNIPAQUE 350; Contrast volume: 82 ml; Contrast route: INTRAVENOUS (IV); COMPARISON: CT CHEST/ABD/PEL W 05/18/2021 12:58 PM FINDINGS: Pulmonary arteries: Normal. No pulmonary emboli. Aorta: Limited evaluation of the ascending aorta due to pulsatility artifact. Within this limitation, no evidence of aortic aneurysm or dissection. Lungs: Scattered foci of atelectasis in the lungs including dependent atelectasis and hypoventilatory changes and linear atelectasis in the lingula and medial right upper lobe. 3 mm right upper lobe nodule on image 208, stable since 05/18/2021. 5 mm right middle lobe nodule on image three 398, also stable. No airspace consolidations or infiltrates. Left lower lobe infiltrate seen on the prior study has resolved. Pleural spaces: Unremarkable. No pneumothorax. No pleural effusion. Heart: Apparent diminished enhancement of the myocardium at the left ventricular vertex with suggestion of mild thinning. Lymph nodes: Unremarkable. No enlarged lymph nodes. Bones/joints: Multilevel degenerative changes in the spine. Soft tissues: Unremarkable. IMPRESSION: 1. Apparent diminished enhancement of the myocardium at the left ventricular vertex with suggestion of mild thinning. May be artifactual versus related to a region of age indeterminate myocardial ischemia. Please correlate clinically and with patient's history. 2. Limited evaluation of the ascending aorta due to pulsatility artifact. Within this limitation, no evidence of aortic aneurysm or dissection in the thoracic aorta. 3. Stable small pulmonary nodules measuring up to 5 mm since 05/18/2021. As per Fleischner Society 2017 guidelines for follow-up and management of pulmonary nodules: For patients at low risk (minimal or absent history of smoking and of other known risk factors), no routine follow-up is indicated. For patients at high risk (history of smoking or of other known risk factors), consider optional CT Chest at 12 months (from the time of the original study). (Reference: Cortney) 4. Reference separately dictated CT angiogram of the Abdomen and Pelvis for intra-abdominal findings. COMMENTS: The findings were verbally communicated via telephone conference with MERARI Summers at 8:26 AM EST on 11/06/2021. The findings were acknowledged and understood. REFERENCES: Cortney Shrestha, et al. Guidelines for Management of Incidental Pulmonary Nodules Detected on CT Images: From the Fleischner Society 2017. Radiology. 2017;284(1):228-243. PROCEDURE INFORMATION: Exam: CTA Abdomen and Pelvis With Contrast Exam date and time: 11/06/2021 6:26 AM Age: 66 years old Clinical indication: Other: Severe back and abdominal pain TECHNIQUE: Imaging protocol: Computed tomographic angiography of the abdomen and pelvis with contrast material. 3D rendering (Not supervised by radiologist): MIP and/or 3D reconstructed images were created by the technologist. Radiation optimization: All CT scans at this facility use at least one of these dose optimization techniques: automated exposure control; mA and/or kV adjustment per patient size (includes targeted exams where dose is matched to clinical indication); or iterative reconstruction. Contrast material: OMNIPAQUE 350; Contrast route: INTRAVENOUS (IV); COMPARISON: CT CHEST/ABD/PEL W 05/18/2021 12:58 PM FINDINGS: Aorta: No evidence of aortic aneurysm or dissection. Aortic calcified and noncalcified mild to moderate atherosclerotic disease. 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 Patent celiac artery. Patent inferior mesenteric artery with mild proximal atherosclerotic disease. Renal arteries: Status post right nephrectomy with opacification of a short right renal artery stump. Patent left renal artery. Right iliac arteries: No occlusion or significant stenosis. Left iliac arteries: No occlusion or significant stenosis. Liver: No mass. Gallbladder and bile ducts: Unremarkable. No calcified stones. No ductal dilation. Pancreas: Unremarkable. No mass. No ductal dilation. Spleen: Heterogeneous enhancement of the spleen may be related to bolus timing, which makes underlying splenic lesions difficult to entirely exclude. Adrenal glands: Unremarkable. No mass. Kidneys and ureters: Redemonstrated left renal cysts, largest of 2.6 cm exophytic cyst posterior left kidney. No hydronephrosis. Stomach and bowel: 6 mm peripherally calcified structure anterior to the descending colon, may be sequelae of prior omental infarct or infection. Loose stool in the ascending, transverse, and proximal descending colon. No bowel wall thickening. No bowel obstruction. Appendix: Not clearly seen. Intraperitoneal space: Unremarkable. No free air. No significant fluid collection. Lymph nodes: Unremarkable. No enlarged lymph nodes. Urinary bladder: Unremarkable. No mass. Reproductive: Prostatic calcifications are noted. Bones/joints: Multilevel degenerative changes in the spine. Soft tissues: Moderate left and small right fat containing inguinal hernias. IMPRESSION: 1. No evidence of aortic aneurysm or acute dissection. Aortic and branch vessel atherosclerotic disease. 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 2. Loose stool in the ascending, transverse, and proximal descending colon. May be related to impending diarrheal state. 3. Other (less critical/noncritical/incidental) findings as above; please refer to the body of report for further details. 4. Reference separately dictated CT angiogram of the chest. COMMENTS: The findings were verbally communicated via telephone conference with MERARI Summers at 8:26 AM EST on 11/06/2021. The findings were acknowledged and understood. Dictated and Authenticated by: Rufino Mari MD. Ordering:TORIBIO Nassar MD
--- NOTE | 2021-11-06 08:38 | DI.VRAD_ITS ---
PROCEDURE INFORMATION: Exam: CT Thoracic Spine Without Contrast Exam date and time: 11/06/2021 6:32 AM Age: 66 years old Clinical indication: Other: Severe back pain TECHNIQUE: Imaging protocol: Computed tomography images of the thoracic spine without contrast. Radiation optimization: All CT scans at this facility use at least one of these dose optimization techniques: automated exposure control; mA and/or kV adjustment per patient size (includes targeted exams where dose is matched to clinical indication); or iterative reconstruction. COMPARISON: CT THORACIC LUMBAR SPINE REC 05/18/2021 12:58 PM FINDINGS: Vertebrae: [id number]-[id number] multi level degenerative change throughout the thoracic spine with endplate irregularity, osteophytosis, endplate spurring, and disc space height loss. compatible with spondylosis. No acute fracture or listhesis. Mild dextroconvexity of the thoracic spine which may be positional. Discs/Spinal canal/Neural foramina: No significant disc protrusion. No severe spinal canal stenosis. No significant neural foraminal narrowing. Soft tissues: Unremarkable. IMPRESSION: 1. No acute fracture or listhesis. 2. Multilevel spondylosis. 3. Reference separately dictated CT scan of the chest. PROCEDURE INFORMATION: Exam: CT Lumbar Spine Without Contrast Exam date and time: 11/06/2021 6:32 AM Age: 66 years old Clinical indication: Other: Severe back pain TECHNIQUE: Imaging protocol: Computed tomography images of the lumbar spine without contrast. Radiation optimization: All CT scans at this facility use at least one of these dose optimization techniques: automated exposure control; mA and/or kV adjustment per patient size (includes targeted exams where dose is matched to clinical indication); or iterative reconstruction. COMPARISON: CT THORACIC LUMBAR SPINE REC 05/18/2021 12:58 PM FINDINGS: Vertebrae: Normal lumbar lordosis is maintained. Moderate multilevel degenerative changes with associated endplate irregularity, disc space height loss, endplate spurring, and posterior articular facet degenerative changes. Inferior endplate Schmorl nodes at T11, T12, and L1. Posterior disc osteophyte complex at L3-L4 with gmih-et-nlxepecj canal narrowing. Posterior disc osteophyte complex at L2-L3 L4-L5, and L5-S1 with mild canal narrowing. No acute fracture or listhesis. 5 mm hypodense sub endplate lesion at the L3 inferior endplate on the right, similar to April 2021, probably focus of disc herniation. Discs/Spinal canal/Neural foramina: Mild bilateral neural foraminal narrowing multiple levels. Soft tissues: Unremarkable. IMPRESSION: 1. No acute fracture or listhesis. 2. Degenerative changes. 3. 5 mm hypodense sub-endplate lesion at the L3 inferior endplate on the right, similar to April 2021, probably focus of disc herniation. 4. Reference separately dictated CT scan of the Abdomen and Pelvis for intra-abdominal findings. Dictated and Authenticated by: Rufino Mari MD. Ordering:TORIBIO Nassar MD
[2021-11-06 09:36] LABS: Troponin I < 50 ng/L (<or=60)
[2021-11-06] MEDS: Lidocaine 5% Patch 1 PATCH TP (09:43)
[2021-11-06] MEDS: diazePAM 5 MG TAB 10 MG PO (09:46)
== END 2021-11-06 09:51 | disposition home or self-care (01) ==
PROVIDERS: Emergency Medicine; Emergency Provider Student in an Organized Health Care Education/Training Program; PCP Family Medicine
DX: M51.26 Other intervertebral disc displacement, lumbar region (principal); R10.9 Unspecified abdominal pain; R91.1 Solitary pulmonary nodule; R93.1 Abnormal findings on diagnostic imaging of heart and coronary circulation
CPT/HCPCS: 36415; 71275; 74177; 80053; 83690; 93005; 96361; 96374; 99285; 81003; 83605; 83735; 84484; 85025; 93010; 99284; J3490

== ENCOUNTER → 2021-12-06 08:56 | Outpatient (BNVA) | payer MEDICARE, SELFPAY | PROVIDERS: PCP Family Medicine; Referring Provider Family Medicine; Visit Provider Surgery | DX: R93.89 Abnormal findings on diagnostic imaging of other specified body structures (principal); K21.9 Gastro-esophageal reflux disease without esophagitis; M47.817 Spondylosis without myelopathy or radiculopathy, lumbosacral region; R91.1 Solitary pulmonary nodule; I63.9 Cerebral infarction, unspecified; K64.4 Residual hemorrhoidal skin tags; I10 Essential (primary) hypertension | CPT/HCPCS: 99214; 99242 ==

== ENCOUNTER → 2022-01-17 10:44 | Outpatient (BNVA) | payer MEDICARE, SELFPAY | PROVIDERS: PCP Family Medicine; Referring Provider Family Medicine; Visit Provider Surgery | DX: Z01.818 Encounter for other preprocedural examination (principal); R19.5 Other fecal abnormalities; G47.33 Obstructive sleep apnea (adult) (pediatric); K21.9 Gastro-esophageal reflux disease without esophagitis | CPT/HCPCS: 99214 ==

== ENCOUNTER 2022-02-15 04:34 | Outpatient (CLI) | payer MEDICARE, SELFPAY ==
[2022-02-15 09:54] LABS: HCT 39.6 % (40.0-50.0); HGB 13.2 g/dL (13.5-17.5); MCH 30.3 pg (27.0-33.0); MCHC 33.3 % (32.0-36.0); MPV 12.1 fL (8.0-11.0); Platelet Count 115 10^3/uL (130-400); RBC 4.35 10^6/uL (4.36-5.78); RDW-SD 43.1 fL; WBC 4.07 10^3/uL (4.4-10.8)
[2022-02-15 11:33] LABS: ALT 30 U/L (16-63); AST 17 U/L (15-37); Albumin 4.1 g/dL (3.4-5.0); Alkaline Phosphatase 95 U/L (46-116); Anion Gap 9.4 mmol/L (3-11); BUN 19 mg/dL (7-18); Bilirubin, Total 0.5 mg/dL (0.2-1.0); CO2 28.6 mmol/L (21.0-32.0); CREATININE 1.1 mg/dL (0.70-1.30); Calcium 8.3 mg/dL (8.5-10.1); Calculated LDL 39 mg/dL (<100); Chloride 106 mmol/L (98-107); Cholesterol 128 mg/dL (<200); Glucose 115 mg/dL (74-106); HDL Cholesterol 41 mg/dL (40-60); Potassium 4.9 mmol/L (3.5-5.1); Sodium 144 mmol/L (136-145); TSH (W/Ref FT4) 1.11 uIU/mL (0.36-3.74); Total Protein 7.3 g/dL (6.4-8.2); Triglyceride 241 mg/dL (<150)
[2022-02-15 12:00] LABS: Uric Acid 6.1 mg/dL (3.5-7.2)
== END 2022-02-15 04:35 | disposition home or self-care (01) ==
LOC: LBO 04:34
PROVIDERS: PCP Family Medicine; Visit Provider Family Medicine
DX: I10 Essential (primary) hypertension (principal); E78.5 Hyperlipidemia, unspecified; D69.6 Thrombocytopenia, unspecified; M10.9 Gout, unspecified; R55 Syncope and collapse
CPT/HCPCS: 36415; 80053; 80061; 85027; 84443; 84550

== ENCOUNTER → 2022-03-07 09:24 | Outpatient (BNVA) | payer MEDICARE, SELFPAY | PROVIDERS: PCP Nurse Practitioner; Referring Provider Family Medicine; Visit Provider Surgery | DX: Z01.818 Encounter for other preprocedural examination (principal); R19.5 Other fecal abnormalities; D69.6 Thrombocytopenia, unspecified; E78.2 Mixed hyperlipidemia | CPT/HCPCS: 99212 ==

== ENCOUNTER 2022-03-15 08:11 | Day surgery (SDC) | payer MEDICARE, SELFPAY ==
--- NOTE | 2022-03-14 11:02 | W.COLOREPORT ---
Colonoscopy Report Date of procedure: 04/14/22 Pre-op diagnosis general: CRC screen/chronic diarrhea Post-op diagnosis procedure note: other (Polyp and diverticula) Surgeon: Gemini Syed Anesthesia Type: General:No Airway Estimated blood loss (mL): 1 Pathology: other Complications: None Disposition: same day Prep: Miralax/Dulcolax Retraction Time: 12 Procedure Description: After informed consent was obtained the patient was taken to the procedure room and placed in a left decubitous position. Monitors were applied and a time out was done. The patients name, date of , procedure, allergies to medications and metal in their body was reviewed. The patient was then sedated. Once sedated and comfortable a rectal exam was done. External exam was normal. Internal exam revealed a normal sphincter tone and no palpable masses. No The scope was then introduced and retrofelexed. internal hemorrhoids were identified. The scope was then advanced to the cecum withoutdifficulty. The TI and appendiceal orifice were identified. The prep was be BPS in all segments for a total of 9.. The scope was then slowly retracted over 12minutes back into the rectum. He had a flat 5 mm polyp at 70 cm. This is removed with a cold biting forcep. At 80 cm he had a .75 cm, slightly raised, polyp that is removed with a hot biting forcep. All specimen is retrieved and no bleeding is noted. He has a few small scattered diverticula in the sigmoid colon. There is no signs of active bleeding or infections. The mucosa is pink and healthy with a normal vascular pattern. The scope was removed and the patient was woken up and taken back to Same day surgery in stable condition. The patient tolerated the procedure well and there were no immediate complications. Follow up: The patient should follow up in 5-7 years unless they develop changes in bowel habits or other new gastrointestinal complaints.
--- NOTE | 2022-03-14 11:03 | W.PM.DSUDISC ---
Discharge Plan Disposition Patient Disposition: HOME Condition: Good Discharge Details Reason For Visit: colon scope Attending Provider: Gemini Syed Primary Care Provider: Inga Acosta Home Meds and New Rx's Prescriptions: No Action aspirin 81 mg tablet,delayed release (DR/EC) 81 mg PO DAILY Qty: 90 4RF paroxetine HCl 20 mg tablet 20 mg PO DAILY Qty: 90 4RF Rx Instructions: 11-02-21 increased dose/ take one tablet at bedtime isosorbide mononitrate 30 mg tablet extended release 24 hr 30 mg PO DAILY Qty: 30 2RF [place] [facility] omeprazole 40 mg capsule,delayed release(DR/EC) 40 mg PO DAILY Qty: 90 3RF rosuvastatin 40 mg tablet 40 mg PO DAILY Qty: 90 2RF Rx Instructions: [place] [facility] [place] [place] nystatin 100,000 unit/gram cream 1 applic topical BID Qty: 30 1RF trazodone 50 mg tablet See Rx Instructions PO QHS PRN (Reason: insomnia) Qty: 90 1RF Rx Instructions: PO every day at bedtime PRN; 1/2 to one tab qhs prn sleep allopurinol 300 mg tablet 300 mg PO DAILY Qty: 90 4RF atenolol 100 mg tablet 100 mg PO DAILY Qty: 90 4RF Discharge Instructions Additional Instructions: [facility] Colonoscopy Post-Op Instructions Instructions for Everyone who is given Anesthesia: For your safety, please do the following for the next twenty-four (24) hours: *Do Not operate a motor vehicle (car, truck, motorcycle, etc.) *Do Not drink alcoholic beverages or use any recreational drugs for the first 24 hours or while taking pain medications. The medications in your body may have a reaction that can be dangerous. *Do Not make any important decisions or sign any important papers. Findings: Follow up: 1. No lifting over 20 pounds or strenuous activity for the first 24 hours after your procedure. After 24 hours there are no restrictions on your activity but you may feel fatigued for a few days. 2. After you arrive home you may have a light meal and return to your normal diet as you can tolerate it without feeling sick to your stomach. 3. You may have a bloated, gaseous feeling in your belly (abdomen) after a colonoscopy. Passing gas and belching will help. Walking or lying down on your left side with your knees flexed may relieve the discomfort. Call the office at [phone] (Office) or [phone] (Hospital) right away if you notice any of the following: a.Vomiting of blood or ?coffee ground stools?. b.Rectal bleeding 1Tbsp, blood clots or continuous bleeding. c.Severe belly (abdominal) pain. d.A hard distended belly (abdomen) and an inability to pass gas. 4. Please don?t expect to have a normal BM (bowel movement) for 2-3 days after your procedure. 5. If there are questions regarding the findings of your procedure, please contact your doctor 6. If you are unable to contact your doctor with a problem, contact the hospital at [phone]. 7. Continue all your regular medications unless directed otherwise. I understand the above instructions and have no questions. Signature of Patient or Adult Escort Name of Responsible Adult Escort Signature of Nurse Date/Time Activity:: see above Diet:: see above
--- NOTE | 2022-03-15 06:24 | ANES.PREOP_ITS ---
General Info Date of Service Date Performed: 03/15/22 Height: 5 ft 10 in Weight: 105.404 kg Body Mass Index (BMI): 33.3 Surgical Procedure: Operation Date: 03/15/22 09:05 Proposed Procedure Side Surgeon wally Syed, DO Meds Allergies and Home Medications Allergies Allergy/AdvReac Type Severity Reaction Status Date / Time No Known Allergies Allergy Verified 03/15/22 08:27 Home Medication Medication Instructions Recorded aspirin 81 mg tablet,delayed 81 mg PO DAILY #90 tab 10/03/21 release allopurinol 300 mg tablet 300 mg PO DAILY #90 tab-cap 10/21/21 atenolol 100 mg tablet 100 mg PO DAILY #90 tab-cap 10/21/21 isosorbide mononitrate 30 mg 30 mg PO DAILY #30 tab 11/02/21 tablet,extended release 24 hr omeprazole 40 mg capsule,delayed 40 mg PO DAILY #90 tab-cap 11/02/21 release paroxetine HCl 20 mg tablet 20 mg PO DAILY #90 tab 11/02/21 rosuvastatin 40 mg tablet 40 mg PO DAILY #90 tab 11/02/21 nystatin 100,000 unit/gram topical 1 applic TOPICAL BID #30 g 02/28/22 cream trazodone 50 mg tablet See Rx Instructions PO QHS PRN #90 02/28/22 tab Current Visit Medications: Current Medications Generic Name Dose Route Start Last Admin Trade Name Freq PRN Reason Stop Dose Admin Hyoscyamine Sulfate 0.125 mg 03/14/22 10:29 Hyoscyamine 0.125 Mg Sl/Oral/Chew SL DIRECTED PRN Ringer's Solution 1,000 mls @ 80 mls/hr 03/15/22 06:00 IV 04/13/22 23:59 INFUSION [facility] IV Miscellaneous Supplies 1 each 03/15/22 06:00 Iv Access IV 04/13/22 23:59 DIRECTED YOHANNES Ondansetron HCl 4 mg 03/14/22 10:29 Ondansetron 4 Mg/2 Ml Vial IVP Q4H PRN PRN Nausea / Vomiting Sodium Chloride 0 ml 03/15/22 06:00 Normal Saline Flush 10 Ml Syr IV 04/13/22 23:59 PRN PRN Sodium Chloride 0 ml 03/15/22 06:00 Normal Saline 10 Ml Vial IJ 04/13/22 23:59 DIRECTED PRN Sterile Water 0 ml 03/15/22 06:00 Water,Injection,Sterile 10 Ml Vial IJ 04/13/22 23:59 DIRECTED PRN PFSH Active Problems Active Problems: Problem Status Onset Code Nephrectomy ~1997 Primary osteoarthritis of both knees 10/05/16 M17.0 Obstructive sleep apnea syndrome G47.33 Insomnia G47.00 Increased BMI (body mass index) 11/14/17 R63.8 Hyperlipidemia 08/01/13 E78.5 Hearing loss 08/01/13 H91.90 Gout M10.9 Gastroesophageal reflux disease 06/01/17 K21.9 External hemorrhoids 07/20/17 K64.4 Essential hypertension I10 Depressive disorder 08/01/13 F32.9 Cystic disease of kidney 08/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 Q61.9 Chronic interstitial cystitis N30.10 Hyperlipidemia E78.5 Pneumonia J18.9 Acute cerebrovascular accident (CVA) I63.9 Thrombocytopenia D69.6 Low back pain M54.50 Positive colorectal cancer screening using Cologuard test R19.5 Syncope R55 Balanitis N48.1 Surgical History Surgical History (Updated 03/15/22 @ 08:27 by Nusrat Cuadra) Hemorrhoidectomy History of colonoscopy History of loop recorder in situ S/P herniorrhaphy (~04/2016) [facility] Tobacco Smoking/Tobacco Use Status: Never Passive smoking exposure: Yes Alcohol Alcohol Intake: never Substance Use Substance use: Never Substance use type: does not use Vital Signs and Lab Results Vital Signs Most Recent Vital Signs in EMR: Temp Pulse Resp BP Pulse Ox 36.4 C L 60 18 115/84 99 03/15/22 08:15 03/15/22 08:15 03/15/22 08:15 03/15/22 08:15 03/15/22 08:15 Lab Results Blood Type / Crossmatch: No Data to Display Complete Blood Count: White Blood Count 4.07 10^3/uL (4.4-10.8) L 02/15/22 09:36 02/15/22 Red Blood Count 4.35 10^6/uL (4.36-5.78) L 02/15/22 09:36 02/15/22 Hemoglobin 13.2 g/dL (13.5-17.5) L 02/15/22 09:36 02/15/22 Hematocrit 39.6 % (40.0-50.0) L 02/15/22 09:36 02/15/22 Platelet Count 115 10^3/uL (130-400) L 02/15/22 09:36 02/15/22 Complete Metabolic Panel: Sodium Level 144 mmol/L (136-145) 02/15/22 09:36 02/15/22 Potassium Level 4.9 mmol/L (3.5-5.1) 02/15/22 09:36 02/15/22 Chloride Level 106 mmol/L (98-107) 02/15/22 09:36 02/15/22 Carbon Dioxide Level 28.6 mmol/L (21.0-32.0) 02/15/22 09:02/15/22 Blood Urea Nitrogen 19 mg/dL (7-18) H 02/15/22 09:36 02/15/22 Creatinine 1.1 mg/dL (0.70-1.30) 02/15/22 09:02/15/22 Estimated GFR/1.73 m2 >= 60.00 (mL/min/1.73m2) 02/15/22 09:36 02/15/22 Calcium Level 8.3 mg/dL (8.5-10.1) L 02/15/22 09:02/15/22 Albumin 4.1 g/dL (3.4-5.0) 02/15/22 09:36 02/15/22 Glucose Level 115 mg/dL (74-106) H 02/15/22 09:36 02/15/22 Liver Function Panel: Alanine Aminotransferase (ALT/SGPT) 30 U/L (16-63) 02/15/22 09:36 02/15/22 Aspartate Amino Transf (AST/SGOT) 17 U/L (15-37) 02/15/22 09:02/15/22 Coagulation Panel: No Data to Display Cardiac Panel: No Data to Display Arterial Blood Gas: No Data to Display Venous Blood Gas: No Data to Display Pancreas Panel: No Data to Display Thyroid Panel: Thyroid Stimulating Hormone (TSH) 1.11 uIU/mL (0.36-3.74) 02/15/22 09:36 02/15/22 Infectious Disease: No Data to Display Blood Cultures: No Data to Display Toxicology Panel: No Data to Display Imaging and Studies Imaging and Studies Study information below may be from another EMR and interpreted by another provider. Please see original notes in EMR for more complete details. EKG Summary: : sinus. Echocardiogram Summary: 06/2021: LVEF 66%, basal and mid inferior wall hypokinetic. no sig valve disease. Anesthesia Assessment and Plan Anesthesia History Personal History: No History of Anesthesia Complications Family History: No Family History of Anesthesia Complications Exercise Tolerance Exercise Tolerance: Metabolic Equivalents>4 Pertinent Negatives Pertinent Negatives: No Symptoms of GERD and No Major Pulmonary Symptoms or Complaints Cardiac & Pulmonary Exam Cardiac Exam: Normal S1/S2 Heart Sounds Pulmonary Exam: Clear Bilateral Breath Sounds Implantable Cardiac Device Does patient have a Pacemaker or an ICD?: No Airway Exam Known Difficult Airway: No Mallampati Class: 3 Mouth Opening: Narrow (< 3cm) Thyromental Distance: Greater than 3 cm Neck Range of Motion: Full ROM Neck Circumference: Normal Teeth Condition: Edentulous ASA Classification ASA Score: ASA 3 Emergency Case?: No NPO Status NPO Status: NPO Clears >2 hours, Solids >8 hours Anesthesia Plan Resuscitation Status: Full Code Anesthesia Technique: General Anesthesia Airway Planned: Natural Airway Monitors Used: Standard Monitors Preoperative Comments:: 66 yo male for colonoscopy. Sig PMHx: chest pain (echo with WMA, stress/MPI with no fixed or reversible perfusion defects. isosorbide)), hemiplegia, ataxia, CVA (06/2021 thrombotic therapy, did have chest pain assoc with this), HTN (atenolol), GERD (omeprazole).
[2022-03-15 08:15] VITALS: BP 115/84; PULSE 60; RESP 18; TEMP 36.4; O2SAT 99
[2022-03-15] MEDS: Lactated Ringers 1,000 ML 80 ML IV (08:54)
--- NOTE | 2022-03-15 11:29 | BOWEL_PTH ---
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
[2022-03-15 11:55] VITALS: BP 102/72; PULSE 61; RESP 14; TEMP 36.4; O2SAT 100
[2022-03-15 11:58] VITALS: BMI 33.3
[2022-03-15] MEDS: Hyoscyamine 0.125 MG SL/ORAL/CHEW SL (12:17)
[2022-03-15 12:25] VITALS: BP 105/85; PULSE 55; RESP 16; TEMP 36.4; O2SAT 95
--- NOTE | 2022-03-15 12:25 | W.ANESPOSTOP ---
Postoperative Evaluation Date, Time and Location Date Performed: 03/15/22 Time Performed: 12:25 Patient Location: Day Surgery Unit Vital Signs Most Recent Imported Vital Signs: Most Recent Vital Signs Temp Pulse Resp BP Pulse Ox 36.4 C L 61 14 102/72 100 03/15/22 11:55 03/15/22 11:55 03/15/22 11:55 03/15/22 11:55 03/15/22 11:55 Assessment Mental Status: Awake (Alert & Oriented to Patient Baseline) Airway and Respiratory Function: Patent airway with normal (patient baseline) respiratory exam Cardiovascular Function: Hemodynamically Stable Hydration Status: Adequately Hydrated Nausea & Vomiting: No Nausea or Vomiting Pain: Pt. Denies Any Pain Peripheral Nerve Block: Patient did not receive a nerve block
== END 2022-03-15 12:55 | disposition home or self-care (01) ==
LOC: SUR 08:11
PROVIDERS: PCP Nurse Practitioner; Visit Provider Surgery
PROC: 0DJD8ZZ Inspection of Lower Intestinal Tract, Via Natural or Artificial Opening Endoscopic (ICD-10-PCS; CPT 45378; principal; 2022-03-15 09:00)
DX: R19.5 Other fecal abnormalities (principal); K52.9 Noninfective gastroenteritis and colitis, unspecified; K63.5 Polyp of colon; D69.6 Thrombocytopenia, unspecified; K64.8 Other hemorrhoids; K57.30 Diverticulosis of large intestine without perforation or abscess without bleeding; E78.5 Hyperlipidemia, unspecified; Z90.5 Acquired absence of kidney; I10 Essential (primary) hypertension; G47.33 Obstructive sleep apnea (adult) (pediatric); K63.89 Other specified diseases of intestine
CPT/HCPCS: 45380; 45384; 88305; J3490

== ENCOUNTER 2022-11-04 00:49 | Outpatient (CLI) | payer MEDICARE, SELFPAY ==
--- NOTE | 2022-11-04 07:15 | DI.RAD_ITS ---
Exam(s) XR KNEE LT 3V AP,LAT,CHELSY EXAM: XR KNEE LT 3V AP,LAT,CHELSY CLINICAL HISTORY: l knee pain, M25.562. TECHNIQUE: 2D digital imaging was performed of the left knee. Five images were obtained. Merchant, AP, lateral and PA tunnel views were obtained. COMPARISON: CR LEFT KNEE LIMITED 1 OR 2 VIEWS from 09/02/2010 FINDINGS: BONES: No acute fracture is present. No bony destructive lesion is seen. JOINTS: The knee is normally aligned. No joint effusion is seen. There is mild narrowing of the media l femoral tibial joint. Mild spurring is seen at the posterior patella. SOFT TISSUE: Vascular calcifications are present. IMPRESSION: 1. Mild degenerative changes of the left knee. 2. Atherosclerosis. DATA REPOSITORY: RADIATION DOSE DELIVERED:
== END 2022-11-04 01:09 ==
LOC: DI 00:49
PROVIDERS: PCP Nurse Practitioner Family; Visit Provider Family Medicine
DX: M25.562 Pain in left knee (principal); M17.12 Unilateral primary osteoarthritis, left knee
CPT/HCPCS: 73562

== ENCOUNTER 2022-11-21 03:14 | Outpatient (CLI) | payer OTHER, SELFPAY ==
[2022-11-21 12:20] LABS: HCT 38.5 % (40.0-50.0); HGB 13.1 g/dL (13.5-17.5); MCH 31.3 pg (27.0-33.0); MCV 92 fL (80-95); MPV 11.9 fL (8.0-11.0); Platelet Count 122 10^3/uL (130-400); RBC 4.19 10^6/uL (4.36-5.78); RDW 12.8 % (11.8-14.1); RDW-SD 42.4 fL
[2022-11-21 12:34] LABS: ALT 27 U/L (16-63); Anion Gap 4.4 mmol/L (3-11); BUN 15 mg/dL (7-18); CO2 31.6 mmol/L (21.0-32.0); CREATININE 1.1 mg/dL (0.70-1.30); Calcium 8.7 mg/dL (8.5-10.1); Chloride 106 mmol/L (98-107); Estimated GFR 72.67 (mL/min/1.73m2); Glucose 109 mg/dL (74-106); Sodium 142 mmol/L (136-145)
[2022-11-21 12:35] LABS: Hemoglobin A1C 5.7 % (<5.7)
== END 2022-11-21 03:15 | disposition home or self-care (01) ==
LOC: LOS 03:17
PROVIDERS: Family Medicine; PCP Nurse Practitioner Family; Visit Provider Family Medicine
DX: E11.9 Type 2 diabetes mellitus without complications (principal); I63.9 Cerebral infarction, unspecified; D69.6 Thrombocytopenia, unspecified; E78.5 Hyperlipidemia, unspecified; F34.9 Persistent mood [affective] disorder, unspecified
CPT/HCPCS: 36415; 80048; 85027; 83036; 84460

== ENCOUNTER 2022-11-30 15:00 | Emergency (ER) | payer OTHER, SELFPAY ==
[2022-11-30 15:08] VITALS: BP 120/84; PULSE 67; RESP 16; TEMP 36.6; O2SAT 99
--- NOTE | 2022-11-30 20:40 | ED.GENADUL_ITS ---
Discharge Plan Disposition Patient Disposition: Home Condition: Stable Discharge Details Clinical Impression: Chronic knee pain Primary Care Provider: Ying Dominguez ED Provider: Oly Fowler Home Meds and New Rx's Prescriptions: New prednisone 20 mg tablet 40 mg PO DAILY Qty: 12 0RF Rx Instructions: take two tabs daily for 5 days and 1 table on day 6, 1/2 tab day 7 oxycodone 5 mg capsule 5 mg PO QHS PRNQty: 6 0RF Continued aspirin 81 mg tablet,delayed release (DR/EC) 81 mg PO DAILY Qty: 90 4RF clotrimazole 1 % cream 1 applic TP BID Qty: 24 2RF Rx Instructions: local application twice a day until rash is gone (groin area) isosorbide mononitrate 30 mg tablet extended release 24 hr 30 mg PO DAILY Qty: 90 3RF atenolol 100 mg tablet 100 mg PO DAILY Qty: 90 4RF nystatin 100,000 unit/gram cream 1 applic topical BID Qty: 30 1RF ibuprofen 600 mg tablet 600 mg PO DAILY PRN (Reason: pain) Qty: 30 0RF allopurinol 300 mg tablet 300 mg PO DAILY Qty: 90 4RF omeprazole 40 mg capsule,delayed release(DR/EC) 40 mg PO DAILY Qty: 90 3RF paroxetine HCl 20 mg tablet 20 mg PO DAILY Qty: 90 4RF Rx Instructions: 11-02-21 increased dose/ take one tablet at bedtime rosuvastatin 40 mg tablet 40 mg PO DAILY Qty: 90 3RF Rx Instructions: per [facility] cardiology August 2021 trazodone 50 mg tablet 25 - 50 mg PO QHS PRN (Reason: insomnia) Qty: 90 1RF Rx Instructions: Take half a tablet to one tablet at bedtime as needed for insomnia Discharge Instructions Additional Instructions: Use your brace and a cane during the day Take the steroid as prescribed At night, you may try taking the oxycodone, this medication is addictive and can make you constipated Do not drive for 8 hours after taking this medication Apply the Voltaren gel 3 times daily to the area of discomfort Take Tylenol 650 mg every 6 hours while awake Follow-up with orthopedics at your scheduled appointment Return earlier should you have fever, chills, chest pain, shortness of breath, or with any new or worsening complaint Stand Alone Forms: Work Release Referrals: Ying Dominguez NP [Primary Care Provider] - 1 day Discharge Data Discharge Date/Time-TO BE ENTERED AT DEPARTURE: 11/30/22 16:24 Medical Decision Making This 67-year-old gentleman presents with acute exacerbation of chronic left knee pain under the care of his primary care physician and secondary to persistent and worsening discomfort presents to the emergency department Reported has a an appointment scheduled with orthopedics on December 20 for a steroid injection Oxycodone prescription supplied and will attempt oral steroids No evidence of secondary infection on clinical exam, has a brace and cane for home No indication for further evaluation at this time as no acute traumatic injury, reviewed x-ray from prior assessment of left knee that shows evidence of arthritis but no other significant acute abnormality Work note supplied Encouraged to follow-up with orthopedics as scheduled appointment Early return cautions reviewed and patient expressed understanding No clinical evidence of DVT HPI General Date/Time Provider Initiated Documentation: 11/30/22 15:29 . HPI Narrative: This 67-year-old gentleman presents with acute exacerbation of chronic left knee pain. Denies specific injury. States he has been under the care of his primary care physician referred to orthopedics in December Denies any calf pain or swelling. Denies any prior history of coagulopathy, chest pain or shortness of breath. Related Data Home Medications Medication Instructions Recorded Confirmed aspirin 81 mg tablet,delayed 81 mg PO DAILY #90 tabs 10/03/21 11/30/22 release nystatin 100,000 unit/gram topical 1 applic topical BID #30 grams 02/28/22 11/30/22 cream ibuprofen 600 mg tablet 600 mg PO DAILY PRN pain #30 tabs 11/03/22 11/30/22 allopurinol 300 mg tablet 300 mg PO DAILY #90 tab-caps 11/17/22 11/30/22 omeprazole 40 mg capsule,delayed 40 mg PO DAILY #90 tab-caps 11/17/22 11/30/22 release paroxetine HCl 20 mg tablet 20 mg PO DAILY #90 tabs 11/17/22 11/30/22 rosuvastatin 40 mg tablet 40 mg PO DAILY #90 tabs 11/17/22 11/30/22 trazodone 50 mg tablet 25 - 50 mg PO QHS PRN insomnia #90 11/17/22 11/30/22 tabs atenolol 100 mg tablet 100 mg PO DAILY #90 tab-caps 11/28/22 11/30/22 clotrimazole 1 % topical cream 1 applic topical BID #24 grams 11/28/22 11/30/22 isosorbide mononitrate 30 mg 30 mg PO DAILY #90 tabs 11/28/22 11/30/22 tablet,extended release 24 hr oxycodone 5 mg capsule 5 mg PO QHS PRN #6 caps 11/30/22 prednisone 20 mg tablet 40 mg PO DAILY #12 tabs 11/30/22 Previous Rx's Medication Instructions Recorded aspirin 81 mg tablet,delayed 81 mg PO DAILY #90 tabs 10/03/21 release nystatin 100,000 unit/gram topical 1 applic topical BID #30 grams 02/28/22 cream ibuprofen 600 mg tablet 600 mg PO DAILY PRN pain #30 tabs 11/03/22 allopurinol 300 mg tablet 300 mg PO DAILY #90 tab-caps 11/17/22 omeprazole 40 mg capsule,delayed 40 mg PO DAILY #90 tab-caps 11/17/22 release paroxetine HCl 20 mg tablet 20 mg PO DAILY #90 tabs 11/17/22 rosuvastatin 40 mg tablet 40 mg PO DAILY #90 tabs 11/17/22 trazodone 50 mg tablet 25 - 50 mg PO QHS PRN insomnia #90 11/17/22 tabs atenolol 100 mg tablet 100 mg PO DAILY #90 tab-caps 11/28/22 clotrimazole 1 % topical cream 1 applic topical BID #24 grams 11/28/22 isosorbide mononitrate 30 mg 30 mg PO DAILY #90 tabs 11/28/22 tablet,extended release 24 hr oxycodone 5 mg capsule 5 mg PO QHS PRN #6 caps 11/30/22 prednisone 20 mg tablet 40 mg PO DAILY #12 tabs 11/30/22 Allergies Allergy/AdvReac Type Severity Reaction Status Date / Time No Known Allergies Allergy Verified 11/30/22 15:12 General Stated Complaint: Orthopedic ARIELLA: 4 Review of Systems All systems reviewed & are unremarkable except as noted in HPI and below PFSH All Active Problems (Updated 11/30/22 @ 15:58 by IKE Duarte) Chronic knee pain (Acute) Left knee pain (Acute) Bilateral sensorineural hearing loss (Acute) Tubular adenoma of colon (Acute ~03/15/22) 03/2022, due in 2026 Nephrectomy (Acute ~1997) right-secondary to trauma Obstructive sleep apnea syndrome (Chronic) doesn't wear C-Pap, hasn't used it for 15 years now. 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 Chronic interstitial cystitis (Chronic) Hyperlipidemia (Acute) Acute cerebrovascular accident (CVA) (Acute) Patient did not have a stroke per neurology at [facility] Thrombocytopenia (Chronic) chronic, suspect ITP Low back pain (Acute) 10/2021-severe low back pain, MRI [facility] showed disc bulge at L3-L4 causing right nerve root impingement Positive colorectal cancer screening using Cologuard test (Acute) Syncope (Chronic) early 2021 Balanitis (Acute) 02/2022-recurrent Medical History (Updated 11/30/22 @ 15:58 by IKE Duarte) External hemorrhoids (07/20/17) Pneumonia Surgical History Hemorrhoidectomy History of colonoscopy (~03/15/22) History of loop recorder in situ S/P herniorrhaphy (~04/2016) [facility] Family History Mother No problems noted. Social History (Updated 11/29/22 @ 15:45 by Ivana Mariano) Smoking/Tobacco Use Status: Never Smoking risk assessment performed?: Yes Alcohol Intake: never Drug use: Never Substance use type: does not use Caregiver/Support person: No Household members: spouse Housing: other Details: trailer Communication Needs: None Do you need help understanding health information?: Always Pets and animals: No Sexually active: No Do you think of yourself as: straight/heterosexual Current gender identity: male What is your relationship status?: How often do you talk on the phone with friends or family?: twice per week How often do you get together with friends or relatives?: three or more times per week How often do you attend caodaism or sikh services?: decline to answer Do you belong to any clubs or organized social groups?: no Panel score (0-1 are the most socially isolated patients): 2 What type of physical activity do you participate in: none Bee/Hoahaoism: No preference Seatbelt use: always Drive intox or ride w/intox hi lo driver: No Do you feel safe at home: Yes Additional Social history: unable to assess privatley Exam Narrative Exam Narrative: Left knee with tenderness medially, point tenderness, no calf swelling or tenderness, neurovascularly intact, no erythema, no effusion Ambulatory with antalgic gait Const General: cooperative, comfortable and no acute distress Course Vital Signs Vital signs: Vital Signs Temperature 36.6 C 11/30/22 15:08 Pulse 67 11/30/22 15:08 Respiratory Rate 16 11/30/22 15:08 Blood Pressure 120/84 11/30/22 15:08 Pulse Oximetry 99 11/30/22 15:08 Temperature 36.6 C 11/30/22 15:08 Temperature Source Temporal Artery Scan 11/30/22 15:08 Pulse 67 11/30/22 15:08 Respiratory Rate 16 11/30/22 15:08 Respiratory Effort 11/30/22 15:11 Blood Pressure 120/84 11/30/22 15:08 Blood Pressure Position Sitting 11/30/22 15:08 Pulse Oximetry 99 11/30/22 15:08 Oxygen Delivery Method Room Air 11/30/22 15:08 Oxygen Flow Rate 0 11/30/22 15:08 Pain Level 10 11/30/22 15:08
== END 2022-11-30 16:24 | disposition home or self-care (01) ==
PROVIDERS: Emergency Provider Physician Assistant; PCP Nurse Practitioner Family
DX: M25.562 Pain in left knee (principal); G89.29 Other chronic pain
CPT/HCPCS: 99283; 99284

== ENCOUNTER → 2022-12-22 14:27 | Outpatient (BNVA) | payer OTHER, SELFPAY | PROVIDERS: PCP Nurse Practitioner Family; Referring Provider Nurse Practitioner Family | DX: M17.12 Unilateral primary osteoarthritis, left knee (principal) | CPT/HCPCS: 20610; 99213; J1040 ==

== ENCOUNTER → 2023-12-07 08:07 | Outpatient (BNVA) | payer OTHER, SELFPAY | PROVIDERS: PCP Nurse Practitioner Family; Referring Provider Nurse Practitioner Family; Visit Provider Student in an Organized Health Care Education/Training Program | DX: M17.12 Unilateral primary osteoarthritis, left knee (principal) | CPT/HCPCS: 20610; J1040 ==

== ENCOUNTER → 2024-03-05 03:54 | Outpatient (CLI) | payer OTHER, SELFPAY ==
--- NOTE | 2024-03-05 08:15 | DI.CT_ITS ---
Exam(s) CT ABDOMEN PELVIS W EXAM: CT ABDOMEN PELVIS W CLINICAL HISTORY: LLQ ABD PAIN, R10.32. TECHNIQUE: Imaging Protocol: Axial computed tomography images with coronal and sagittal reformatted images were created and reviewed CONTRAST MATERIAL: Intravenous: Omnipaque-350 100cc Oral: Yes. Oral contrast was also administered for bowel opacification. COMPARISON: CT CT THORACIC LUMBAR SPINE REC from 11/06/[address] THORAX ABD/PEL CTA from 11/06/2021 FINDINGS: VISUALIZED LUNG BASES: No nodules nor pleural effusions evident. ABDOMEN: There is no ascites. LIVER: There are no focal hepatic lesions evident. No dilated intrahepatic ducts. GALLBLADDER/BILIARY: No obvious gallbladder pathology. CBD is not dilated. PANCREAS: No evidence of pancreatic mass nor dilatation of the pancreatic duct. SPLEEN: Spleen is not enlarged. No obvious intrasplenic lesions. Splenic and portal veins are paten t. ADRENALS: Both adrenal glands unremarkable. KIDNEYS:Right kidney is again noted to be surgically absent. No abnormal tissue nor lymphadenopathy in this region. The solitary left kidney contains multiple benign cortical small cysts. Largest cys t is an exophytic cyst off the superior pole which is unchanged in size measuring approximately 2 cm. . ABDOMINAL AORTA: Abdominal aorta is again noted to be moderately atherosclerotic. Maximum external d iameter 2.7 cm. There is also again noted fusiform dilatation of the distal left common iliac artery which measures 1.8 cm, slightly larger than previous. LYMPH NODES:There is no retroperitoneal nor paraaortic adenopathy. ABDOMINAL WALL: Fat only containing left inguinal hernia. GI: There is no evidence of bowel obstruction, free air, nor abscess. There is a focal area of narrowing of the colon at the upper left iliac fossa which is over a distanc e of approximately 6 cm. However, there does not appear to be an obvious mass at this level. The co nedra distal to this level is not collapsed. Sigmoid is redundant but without significant diverticular disease. PELVIS: GI: No evidence of appendicitis.No evidence of sigmoid diverticulitis. LYMPH NODES: There is no intrapelvic nor inguinal adenopathy. REPRODUCTIVE: Prostate size upper normal. URINARY BLADDER: No calculi nor obvious masses evident OSSEOUS: No acute fractures. Prominent Schmorl's node invagination in the posterior superior endplate of L4 noted, not evident on the CT scan of 2020. IMPRESSION: 1. There is an area of narrowing in the descending left colon at its junction with the sigmoid, this measuring approximately 6 cm length. However, there does not appear to be a circumferential mural th ickening nor extrinsic mass at this level. Nevertheless, the colon above this level is slightly prom inent in diameter. The colon below this level is not collapsed. Recommend follow-up colonoscopy. 2. Redundant sigmoid without evidence of acute diverticulitis. 3. Surgically absent right kidney again noted. No new significant findings in the remaining left kid arian. No adrenal masses. 4. Atherosclerotic abdominal aorta without significant aneurysm in the aorta but there is fusiform di latation of the distal left common iliac artery which exhibits diameter of 1.8 cm, slightly larger th an prior CT scan of October 2021. Other findings as above. RADIATION DOSE DELIVERED: 2,271.85mGy.cm Total DLP DATA REPOSITORY: All CT scans at this facility are submitted to the National Radiology Data Registry (NRDR) Dose Index Registry (DIR) with the [employer] (ACR). RADIATION OPTIMIZATION: All CT scans at this facility use at least one of these dose optimization te chniques: automated exposure control; mA and/or kV adjustment per patient size (includes targeted exa ms where dose is matched to clinical indication); or iterative reconstruction.
[2024-03-05] MEDS: Barium Sulfate 2% W/V-Berry Smoothie 450 ML BTL PO ×2 (13:31→13:32)
[2024-03-05 13:36] LABS: CREATININE 1.2 mg/dL (0.70-1.30); Estimated GFR 65.06 (mL/min/1.73m2)
[2024-03-05] MEDS: Normal Saline - Diluent 50 ML VIAL IJ (15:44)
[2024-03-05] MEDS: Omnipaque 350 MG/ML 100 ML BTL IJ (15:44)
== END ==
PROVIDERS: PCP Nurse Practitioner Family; Visit Provider Nurse Practitioner Family
DX: R10.32 Left lower quadrant pain (principal); R93.3 Abnormal findings on diagnostic imaging of other parts of digestive tract; I70.0 Atherosclerosis of aorta
CPT/HCPCS: 74177; 82565; J3490

== ENCOUNTER → 2024-06-03 08:46 | Outpatient (BNVA) | payer OTHER, SELFPAY | PROVIDERS: PCP Nurse Practitioner Family; Referring Provider Nurse Practitioner Family; Visit Provider Surgery | DX: Z12.11 Encounter for screening for malignant neoplasm of colon (principal); R19.7 Diarrhea, unspecified ==

== ENCOUNTER 2024-07-12 05:50 | Day surgery (SDC) | payer OTHER, SELFPAY ==
--- NOTE | 2024-07-11 14:59 | W.PM.HP.N ---
Date of service: 07/12/24 Time of Service: 07:35 Assessment and Plan Assessment and plan (1) Essential hypertension: Status: Chronic (2) Hyperlipidemia: Status: Acute Qualifiers: Hyperlipidemia type: mixed hyperlipidemia Qualified Code(s): E78.2 - Mixed hyperlipidemia (3) Thrombocytopenia: Status: Chronic (4) Increased BMI (body mass index): Status: Chronic (5) Bilateral sensorineural hearing loss: Status: Acute (6) Gastroesophageal reflux disease: Status: Chronic (7) Tubular adenoma of colon: Status: Acute (8) Acute diarrhea: Status: Acute (9) Left lower quadrant abdominal pain: Status: Acute Assessment and plan: Plan: Colonoscopy w/ general & natural airway. Informed consent is obtained for the procedural (explained in simple layman's terms that?the pt and/or family could understand) explaining risks vs benefits and alternatives to the procedure and consequences if we do not do the procedure and need/rational for the procedure. Risks include but are not limited to: bleeding, infection, perforation of colon.? This would necessitate emergency surgery to repair the damage w/ possible ostomy; and other associated complications w/ the required surgery. ? Also complications of anesthesia including aspiration, IL/CVA/, inability to complete the procedure. I discussed with the?patient would they could expect during the procedure, post procedure and recovery time and risks.? The patient understands that they need to have a ride home after the procedure.? This document was created with voice activated software and may contain errors. 20 mins spent in direct pt care and 15 in non face to face time (10) Chronic interstitial cystitis: Status: Chronic (11) Cystic disease of kidney: Status: Chronic (12) Primary osteoarthritis of both knees: Status: Resolved (13) Ataxia: Status: Acute (14) Nephrectomy: Status: Acute (15) Obstructive sleep apnea syndrome: History of Present Illness Narrative: Patient is here today for colonoscopy for LLQ pain and diarrhea.??? They completed a bowel prep with just a clear yellow residual effluent.? They not having any chest pain or shortness of breath, currently.? They are not experiencing any fever or chills.? They deny any productive cough or upper respiratory tract infection signs or symptoms.? They are lower having abdominal pain, but no nausea and vomiting.? They have not had any changes in medications, past medical history or past surgical history since previously being seen in the office. They have not had any accidents or have been in the ER since the clinic pre-operative evaluation. ??I reviewed the procedure with the patient today, including risks and benefits of the procedure, and what they could expect at home for recovery.? All questions are answered to the patient?s satisfaction today, and they are stable to proceed with the proposed procedure. -See Neuro Note scanned into [employer] from . They do NOT feel that pt is having seizures. Office Visit 06/03/24 (1) Acute diarrhea: This is a new onset for him. He has not noticed any rectal bleeding. He has not noticed any change in weight. He has not changed his diet. He does not change any medications. He has not changed any supplements. He has not had any travel outside of the state. He is not been on antibiotics recently. They do not have a well. -It is interfering with his activities of daily living. He has not had his gallbladder out. -He has had open adenomatous polyps in the past. -Reviewing a previous CT does not show any diverticula. He has never been told he has IBS in the past. -He does have a significant history of anxiety (2) Encounter for screening colonoscopy: Plan: Colonoscopy w/ general & natural airway. The?patient will be scheduled by my office. The pt understands that they need to do a bowel prep and the importance of hydration during this.? The patient understands there is a theoretical risk of renal failure.? For healthy patients we use Gatorade/Miralax Prep.? ?For anyone with renal concerns- GoLytely will be used. Plavix and coumadin will need to be held except in unusual circumstances. ? Patients in A. Fib do not need to be bridged with Lovenox or on CVA prophylaxis.? A baby ASA can be continued but full dose ASA needs to be stopped for 10 days prior to the procedure. A complete H & P is required within 30 days of the procedure.? GETA w/natural airway is used for the colonoscopy.? Informed consent is obtained for the procedural (explained in simple layman's terms that?the pt and/or family could understand) explaining risks vs benefits and alternatives to the procedure and consequences if we do not do the procedure and need/rational for the procedure. Risks include but are not limited to: bleeding, infection, perforation of colon.? This would necessitate emergency surgery to repair the damage w/ possible ostomy; and other associated complications w/ the required surgery. ? Also complications of anesthesia including aspiration, IL/CVA/, inability to complete the procedure. I discussed with the?patient would they could expect during the procedure, post procedure and recovery time and risks.? The patient understands that they need to have a ride home after the procedure.? The patient was given all this information in writing and expressed understanding. If there are any questions or concerns please feel free to contact our office.? Generally Colonoscopy does not require antibiotics prophylaxis, This document was created with voice activated software and may contain errors. 25 mins spent in direct pt care and 20 in non face to face time (3) Depressive disorder: (4) Essential hypertension: (5) Hyperlipidemia: (6) Thrombocytopenia: (7) Increased BMI (body mass index): (8) Hearing loss: (9) Gastroesophageal reflux disease: (10) Tubular adenoma of colon: (11) Left lower quadrant abdominal pain: (12) Primary osteoarthritis of both knees: (13) Gout: (14) Nephrectomy: (15) Insomnia: (16) Acute cerebrovascular accident (CVA): (17) Obstructive sleep apnea syndrome: (18) External hemorrhoids: (19) Anxiety: New RN: Pt here for lower abdominal pain that he states starts here and goes all the way down into my privates. When moving bowels the first time it is hard and soft, then after that I have diarrhea, usually I go about 8 times a day. Pt reports this has been happening for a long time, 3-5 years. Pain level toady is a 8/10 that is a constant pain that goes right down to my privates. Pt unsure of fathers history, just aware he pasted of cancer. Pt has had colon cancer screening before.? ?He has been having problems with diarrhea and left lower quadrant pain. They deny any pain or difficulty with bowel movements, or rectal bleeding.? There is no family history of any colon cancer.? Pt doesn't know if he has lost wt. ? Their appetite is good.? ?They deny heart, lung, or kidney problems. He has GERD- well controlled on PPI. They have not had any prior colo-rectal surgery.? The patient has not had a prior prostate sx? They deny any problems with anesthesia in the past. pt has been having LLQ pain that radiates into the left groin. He will sometimes have diarrhea and go up to eight times a day. He is not currently on blood thinners. His last EEG was nl adn not on seizure meds. 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 He is not on blood thinners- pt does not know meds Will have SOB. Had an EEG at . changes in bowel habits has been going on longer than 2021. -pt has a single kidney and is on ibuprofen. Advised pt that this is not advisable b/c nephrotoxic drug. Anesthesia: general (without airway) Previous surgical intolerances: No Previous surgical complications: No Pulmonary risk factors: Planned procedure: Yes Sleep apnea risks: Yes. Does not use CPAP COPD/Asthma/Smoker: Non-smoker. Can climb one flight of stairs (12-13 steps) in less than 30 seconds without stopping and without symptoms: Yes The surgery proposed for this patient is: low risk Active cardiac conditions: History of CVA Active risk factors: none ASA (acetylsalicylic acid): not used Beta blockers: not used Kidneys: Patient only has 1 kidney. It was removed to trauma DM: Known ?Date of procedure: 04/14/22 Pre-op diagnosis general: CRC screen/chronic diarrhea Post-op diagnosis procedure note: other (Polyp and diverticula) Surgeon: Gemini Syed Anesthesia Type: General:No Airway Estimated blood loss (mL): 1 Pathology: other Complications: None Disposition: same day Prep: Miralax/Dulcolax Retraction Time: 12 Procedure Description: After informed consent was obtained the patient was taken to the procedure room and placed in a left decubitous position. Monitors were applied and a time out was done. The patients name, date of , procedure, allergies to medications and metal in their body was reviewed. The patient was then sedated. Once sedated and comfortable a rectal exam was done. External exam was normal. Internal exam revealed a normal sphincter tone and no palpable masses. No The scope was then introduced and retrofelexed. internal hemorrhoids were identified. The scope was then advanced to the cecum withoutdifficulty. The TI and appendiceal orifice were identified. The prep was be BPS in all segments for a total of 9.. The scope was then slowly retracted over 12minutes back into the rectum. He had a flat 5 mm polyp at 70 cm. This is removed with a cold biting forcep. At 80 cm he had a .75 cm, slightly raised, polyp that is removed with a hot biting forcep. All specimen is retrieved and no bleeding is noted. He has a few small scattered diverticula in the sigmoid colon. There is no signs of active bleeding or infections. The mucosa is pink and healthy with a normal vascular pattern. The scope was removed and the patient was woken up and taken back to Same day surgery in stable condition. path: Tubular adenoma 03/05 CT: rominent Schmorl's node invagination in the posterior superior endplate of L4 noted, not evident on the CT scan of 2020. IMPRESSION: 1. There is an area of narrowing in the descending left colon at its junction with the sigmoid, this measuring approximately 6 cm length. However, there does not appear to be a circumferential mural thickening nor extrinsic mass at this level. Nevertheless, the colon above this level is slightly prominent in diameter. The colon below this level is not collapsed. Recommend follow-up colonoscopy. 2. Redundant sigmoid without evidence of acute diverticulitis. 3. Surgically absent right kidney again noted. No new significant findings in the remaining left kidney. No adrenal masses. 4. Atherosclerotic abdominal aorta without significant aneurysm in the aorta but there is fusiform dilatation of the distal left common iliac artery which exhibits diameter of 1.8 cm, slightly larger than prior CT scan of October 2021. PSHx right kidney removed for trauma/not cancer CE has implanted heart monitor. - placed 2-3 wks ago at Review of Systems All systems reviewed & are unremarkable except as noted in HPI and below PFSH All Active Problems Acute diarrhea (Acute) Anxiety (Chronic) Left lower quadrant abdominal pain (Acute) Ataxia (Acute) Osteoarthritis of left knee (Acute) depo medrol 12/07/23; 12/22/22 Left knee pain (Acute) Bilateral sensorineural hearing loss (Acute) Tubular adenoma of colon (Acute ~03/15/22) 03/2022, due in 2026 Nephrectomy (Acute ~1997) right-secondary to trauma 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 Pneumonia External hemorrhoids (07/20/17) Surgical History History of colonoscopy (~03/15/22) History of loop recorder in situ S/P herniorrhaphy (~04/2016) [facility] Hemorrhoidectomy Family History Mother No problems noted. 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 [employer] Pets and animals: No Sexually active: No Do you think of yourself as: straight/heterosexual Current gender identity: male What is your relationship status?: How often do you talk on the phone with friends or family?: twice per week How often do you get together with friends or relatives?: once per week How often do you attend denominational or congregational services?: decline to answer Do you belong to any clubs or organized social groups?: no Panel score (0-1 are the most socially isolated patients): 2 Duration: 15-30 minutes/day Bee/Anabaptist: Non latter-day Agree to transfusion: Yes Seatbelt use: always Drive intox or ride w/intox special education bus driver: No Working smoke detector in home: Yes Carbon monox detector in home: Yes Do you feel safe at home: Yes Do you feel safe in your relationship?: Yes Victim of physical abuse: No Victim of emotional abuse: No Victim of sexual abuse: No Meds Allergies and Home Medications Allergies Allergy/AdvReac Type Severity Reaction Status Date / Time No Known Allergies Allergy Verified 07/12/24 06:43 Home Medications ?Medication ?Instructions ?Recorded ?Confirmed ?Type nystatin 100,000 unit/gram topical 1 applic topical BID #30 grams 02/28/22 07/12/24 Rx cream ibuprofen 600 mg tablet 600 mg PO DAILY PRN pain #30 tabs 11/03/22 07/12/24 Rx omeprazole 40 mg capsule,delayed 40 mg PO DAILY #90 tab-caps 11/17/22 07/12/24 Rx release clotrimazole 1 % topical cream 1 applic topical BID #24 grams 11/28/22 07/12/24 Rx isosorbide mononitrate 30 mg 30 mg PO DAILY #90 tabs 09/24/23 07/12/24 Rx tablet,extended release 24 hr paroxetine HCl 20 mg tablet 20 mg PO DAILY #90 tabs 09/24/23 07/12/24 Rx rosuvastatin 40 mg tablet 40 mg PO DAILY #90 tabs 09/24/23 07/12/24 Rx atenolol 100 mg tablet 100 mg PO DAILY #90 tab-caps 09/25/23 07/12/24 Rx gabapentin 300 mg capsule 300 mg PO TID 01/24/24 07/12/24 History allopurinol 300 mg tablet 300 mg PO DAILY #90 tab-caps 02/01/24 07/12/24 Rx primidone 50 mg tablet 50 mg PO QHS #90 tabs 02/12/24 07/12/24 Rx trazodone 50 mg tablet See Rx Instructions .Route 02/20/24 07/12/24 Rx .COMPLEX #90 tabs peg 3350-electrolytes 236 240 ml PO Q10M #4,000 mL 06/03/24 07/10/24 Rx gram-22.74 gram-6.74 gram-5.86 gram solution (Golytely) Exam Narrative Exam Narrative: PHYSICAL EXAM GENERAL APPEARANCE: Alert, healthy appearance, oriented, x 3,? in no acute distress HYDRATION: Well hydrated HEAD, EYES, EARS, NECK, THROAT: Head is normocephalic, pupils equal, round, reactive to light and accommodation, ocular movement intact, sclera clear and no jaundice. ?Dentition intact. No sore throat.? No jaw pain. No thrush NECK: no lymphadenopathy.? Trachea midline.? Neck supple.? No JVD LUNGS: normal respiration/normal chest excursion. ?Clear to auscultation bilaterally. ?No wheeze. ?HEART: Regular rate and rhythm. no murmurs EXTREMITY: No edema or cyanosis.? no leg pain, redness, swelling.? ABDOMEN: soft and non-tender to palpation.? Normal bowel sounds.? Time Spent Time spent with Patient: <40 minutes Time was spent: preparing to see the patient(eg.review tests), obtaining and/or reviewing separately otained hiistory, ordering medications,tests, procedures, referring, communicating with other health manager career, indepentently interpreting results, counseling the patient, care coordination and other
--- NOTE | 2024-07-11 15:11 | W.COLOREPORT ---
Date of service: 07/12/24 Time of Service: 08:16 Colonoscopy Report Date of procedure: 07/12/24 Pre-op diagnosis general: LLQ pain/dairrhea Post-op diagnosis procedure note: other (small polyps ) Surgeon: Gemini Syed Anesthesia Type: General:No Airway Estimated blood loss (mL): 1 Pathology: other Complications: None Disposition: same day Prep: Miralax/Dulcolax Retraction Time: 13 Procedure Description: After informed consent was obtained, explaining risks of the procedure, including but not limits to: bleeding, infections, complications of anesthesia, perforations (which may require antibiotics and /or surgery and stay in the hospital), and abdominal pain/cramping. The patient was taken to the procedure room and placed in a left decubitous position. Monitors were applied and a time out was done. The patients name, date of , procedure, allergies to medications and metal in their body was reviewed. The patient was then sedated. Once sedated and comfortable a rectal exam was done. External exam was normal. Internal exam revealed a normal sphincter tone and no palpable masses. The prostate palpable masses today The previously lubricated Olympus scope was then introduced (see RN notes for scope number) and retrofelexed. No internal hemorrhoids were identified. The scope was then advanced to the cecum without difficulty. The TI and appendiceal orifice were identified. The scope was then slowly retracted over 13 minutes back into the rectum. Polyps: A flat, .5cm polyp was found at 70 & 20cm. This was removed with a cold biting forceps. All of the specimen was retrieved. This will be sent to pathology. There is no bleeding noted from the polypectomy site. Random biopsies were taken from the cecum 60/30 cm and rectum. Diverticula: no The mucosa is pink and healthy w/ a normal vascular pattern. The scope was removed, and the patient was woken up and taken back to Same day surgery in stable condition. The patient tolerated the procedure well and there were no immediate complications. Follow up: The patient does not require any routine screening colonoscopies,, unless they develop changes in bowel habits or other new gastrointestinal complaints. [place] Bowel Prep [place] Bowel Prep Right Colon: 3 Left Colon: 3 Transverse Colon: 3 Total Score: 9
[2024-07-12 06:30] VITALS: BP 134/81; PULSE 52; RESP 17; TEMP 36.6; O2SAT 100
[2024-07-12] MEDS: Lactated Ringers 1,000 ML 80 ML IV (07:05)
--- NOTE | 2024-07-12 07:13 | W.ANESPRE ---
General Info Date of Service Date Performed: 07/12/24 Height: 5 ft 8.5 in Weight: 102.4 kg Body Mass Index (BMI): 33.8 Surgical Procedure: Operation Date: 07/12/24 07:35 Proposed Procedure Side Surgeon p Colonoscopy Gemini Syed, DO Actual Procedure Side Surgeon p Colonoscopy Not Applicable Gemini Syed, DO Meds Allergies and Home Medications Allergies Allergy/AdvReac Type Severity Reaction Status Date / Time No Known Allergies Allergy Verified 07/12/24 06:43 Home Medication ?Medication ?Instructions ?Recorded nystatin 100,000 unit/gram topical 1 applic topical BID #30 grams 02/28/22 cream ibuprofen 600 mg tablet 600 mg PO DAILY PRN pain #30 tabs 11/03/22 omeprazole 40 mg capsule,delayed 40 mg PO DAILY #90 tab-caps 11/17/22 release clotrimazole 1 % topical cream 1 applic topical BID #24 grams 11/28/22 isosorbide mononitrate 30 mg 30 mg PO DAILY #90 tabs 09/24/23 tablet,extended release 24 hr paroxetine HCl 20 mg tablet 20 mg PO DAILY #90 tabs 09/24/23 rosuvastatin 40 mg tablet 40 mg PO DAILY #90 tabs 09/24/23 atenolol 100 mg tablet 100 mg PO DAILY #90 tab-caps 09/25/23 gabapentin 300 mg capsule 300 mg PO TID 01/24/24 allopurinol 300 mg tablet 300 mg PO DAILY #90 tab-caps 02/01/24 primidone 50 mg tablet 50 mg PO QHS #90 tabs 02/12/24 trazodone 50 mg tablet See Rx Instructions .Route 02/20/24 .COMPLEX #90 tabs peg 3350-electrolytes 236 240 ml PO Q10M #4,000 mL 06/03/24 gram-22.74 gram-6.74 gram-5.86 gram solution (Golytely) Current Visit Medications: Current Medications Generic Name Dose Route Start Last Admin Trade Name Freq PRN Reason Stop Dose Admin Hyoscyamine Sulfate 0.125 mg 07/12/24 03:03 Hyoscyamine 0.125 Mg Sl/Oral/Chew SL 08/11/24 03:02 DIRECTED PRN Ringer's Solution 1,000 mls @ 80 mls/hr 07/12/24 06:00 07/12/24 07:05 IV 08/30/24 23:59 80 mls/hr INFUSION YOHANNES Administration IV Miscellaneous Supplies 1 each 07/12/24 06:00 Iv Access IV 07/12/24 23:59 DIRECTED YOHANNES Ondansetron HCl 4 mg 07/12/24 03:03 Ondansetron 4 Mg/2 Ml Vial IVP 08/11/24 03:02 Q4H PRN PRN Nausea / Vomiting Sodium Chloride 0 ml 07/12/24 06:00 Normal Saline Flush 10 Ml Syr IV 07/12/24 23:59 PRN PRN Sodium Chloride 0 ml 07/12/24 06:00 Normal Saline 10 Ml Vial IJ 07/12/24 23:59 DIRECTED PRN Sterile Water 0 ml 07/12/24 06:00 Water,Injection,Sterile 10 Ml Vial IJ 07/12/24 23:59 DIRECTED PRN PFSH Active Problems Active Problems: Problem Status Onset Code Acute diarrhea Acute R19.7 Anxiety Chronic F41.9 Left lower quadrant abdominal pain Acute R10.32 Ataxia Acute R27.0 Osteoarthritis of left knee Acute M17.12 Left knee pain Acute M25.562 Bilateral sensorineural hearing loss Acute H90.3 Tubular adenoma of colon Acute ~03/15/22 D12.6 Nephrectomy Acute ~1997 Primary osteoarthritis of both knees Resolved 10/05/16 M17.0 Insomnia Chronic G47.00 Increased BMI (body mass index) Chronic 11/14/17 R63.8 Hearing loss Chronic 08/01/13 H91.90 Gout Chronic M10.9 Gastroesophageal reflux disease Chronic 06/01/17 K21.9 Essential hypertension Chronic I10 Depressive disorder Resolved 08/01/13 F32.9 Cystic disease of kidney Chronic 08/01/13 Q61.9 Chronic interstitial cystitis Chronic N30.10 Hyperlipidemia Acute E78.5 Thrombocytopenia Chronic D69.6 Low back pain Acute M54.50 Medical History Medical History Acute cerebrovascular accident (CVA) Patient did not have a stroke per neurology at [facility] [place] Pham 02/2022-recurrent Syncope early 2021 Obstructive sleep apnea syndrome doesn't wear C-Pap, hasn't used it for 15 years now. Pneumonia External hemorrhoids (07/20/17) Surgical History Surgical History History of colonoscopy (~03/15/22) History of loop recorder in situ S/P herniorrhaphy (~04/2016) [facility] Hemorrhoidectomy Tobacco Smoking/Tobacco Use Status: Never Passive smoking exposure: Yes Alcohol Alcohol Intake: never Substance Use Substance use: Never Substance use type: does not use Vital Signs and Lab Results Vital Signs Most Recent Vital Signs in EMR: Most Recent Vital Signs Temp Pulse Resp BP Pulse Ox 36.6 C 52 L 17 134/81 100 07/12/24 06:30 07/12/24 06:30 07/12/24 06:30 07/12/24 06:30 07/12/24 06:30 Lab Results Blood Type / Crossmatch: No Data to Display Complete Blood Count: No Data to Display Complete Metabolic Panel: No Data to Display Liver Function Panel: No Data to Display Coagulation Panel: No Data to Display Cardiac Panel: No Data to Display Arterial Blood Gas: No Data to Display Venous Blood Gas: No Data to Display Pancreas Panel: No Data to Display Thyroid Panel: No Data to Display Infectious Disease: No Data to Display Blood Cultures: No Data to Display Toxicology Panel: No Data to Display Imaging and Studies Imaging and Studies Study information below may be from another EMR and interpreted by another provider. Please see original notes in EMR for more complete details. EKG Summary: : sinus. Echocardiogram Summary: 06/2021: LVEF 66%, basal and mid inferior wall hypokinetic. no sig valve disease. Anesthesia Assessment and Plan Anesthesia History Personal History: No History of Anesthesia Complications Family History: No Family History of Anesthesia Complications Exercise Tolerance Exercise Tolerance: Metabolic Equivalents<4 Cardiac & Pulmonary Exam Cardiac Exam: Normal S1/S2 Heart Sounds Pulmonary Exam: Clear Bilateral Breath Sounds Implantable Cardiac Device Does patient have a Pacemaker or an ICD?: No Airway Exam Known Difficult Airway: No Mallampati Class: 3 Mouth Opening: Narrow (< 3cm) Thyromental Distance: Greater than 3 cm Neck Range of Motion: Full ROM Neck Circumference: Normal Teeth Condition: Edentulous ASA Classification ASA Score: ASA 3 Emergency Case?: No NPO Status NPO Status: NPO Clears >2 hours, Solids >8 hours Anesthesia Plan Resuscitation Status: Full Code Anesthesia Technique: General Anesthesia Airway Planned: Natural Airway Monitors Used: Standard Monitors Preoperative Comments:: Sig PMHx: chest pain (echo with WMA, stress/MPI with no fixed or reversible perfusion defects. isosorbide)), hemiplegia, ataxia, CVA (06/2021 thrombotic therapy, did have chest pain assoc with this), HTN (atenolol), GERD (omeprazole).
[2024-07-12 07:20] VITALS: BMI 33.8
--- NOTE | 2024-07-12 07:55 | BOWEL_PTH ---
PATIENT: Ole Perez JR LOC: [facility] U#:[id number] AGE/SX: 69/M ROOM: RE07/12/[address]: Gemini Syed : 1955 BED: DIS: 07/12/2024 SPEC #: [id number] RECD: 07/12/24 12:51 STATUS: AURELIO REMicky #: [id number] EDENILSON: 07/12/24 07:[address]: Gemini Syed DEPT: Surgical Specimen RECD BY: Oly Jurado ENTERED: 07/12/24 12:53 SP TYPE: Bowel OTHR DR: Ying Dominguez, SQL PROGRAMMER ANALYST Tissues: 1 - BIOPSY BOWEL 2 - BIOPSY BOWEL 3 - BIOPSY BOWEL 4 - BIOPSY BOWEL 5 - BIOPSY BOWEL 6 - BIOPSY BOWEL Procedures: GROSS AND MICRO LEVEL 4 Comments: [id number]
[2024-07-12 08:08] VITALS: BP 96/72; PULSE 60; RESP 16; TEMP 36.1; O2SAT 95
[2024-07-12] MEDS: Hyoscyamine 0.125 MG SL/ORAL/CHEW SL (08:19)
--- NOTE | 2024-07-12 08:20 | PDOC.DSDIS_ITS ---
Date of service: 07/12/24 Time of Service: 08:21 Discharge Plan Disposition Patient Disposition: Home Discharge Details Reason For Visit: Colon scope Attending Provider: Gemini Syed Primary Care Provider: Ying Dominguez Home Meds and New Rx's Prescriptions: Continued clotrimazole 1 % cream 1 applic TP BID Qty: 24 2RF Rx Instructions: local application twice a day until rash is gone (groin area) nystatin 100,000 unit/gram cream 1 applic topical BID Qty: 30 1RF ibuprofen 600 mg tablet 600 mg PO DAILY PRN (Reason: pain) Qty: 30 0RF omeprazole 40 mg capsule,delayed release(DR/EC) 40 mg PO DAILY Qty: 90 3RF isosorbide mononitrate 30 mg tablet extended release 24 hr 30 mg PO DAILY Qty: 90 3RF paroxetine HCl 20 mg tablet 20 mg PO DAILY Qty: 90 4RF Rx Instructions: 11-02-21 increased dose/ take one tablet at bedtime rosuvastatin 40 mg tablet 40 mg PO DAILY Qty: 90 3RF Rx Instructions: per [facility] [place] 2021 atenolol 100 mg tablet 100 mg PO DAILY Qty: 90 4RF gabapentin 300 mg capsule 300 mg PO TID Rx Instructions: 01/24/24 Rx'd at [facility]. -hb allopurinol 300 mg tablet 300 mg PO DAILY Qty: 90 4RF primidone 50 mg tablet 50 mg PO QHS Qty: 90 1RF trazodone 50 mg tablet See Rx Instructions .ROUTE .COMPLEX Qty: 90 1RF Dose Instruction: TAKE 1/2 TO 1 (ONE-HALF TO ONE) TABLET BY MOUTH ONCE DAILY AT BEDTIME NEEDED FOR INSOMNIA Rx Instructions: TAKE 1/2 TO 1 (ONE-HALF TO ONE) TABLET BY MOUTH ONCE DAILY AT BEDTIME NEEDED FOR INSOMNIA Discontinued peg 3350-electrolytes [Golytely] 236-22.74-6.74 -5.86 gram recon soln 240 ml PO Q10M Qty: 4000 0RF Rx Instructions: until fecal effluent is clear Discharge Instructions Additional Instructions: DSU Colonoscopy Post- Op Instructions Instructions for Everyone who is given An esthesia: For your safety, please do the following for the next twenty-four (24) hours: *Do Not operate a motor vehicle (car, truck, motorcycle, etc.) *Do Not drink alcoholic beverages or use any recreational drugs for the first 24 hours or while taking pain medications. The medications in your body may have a reaction that can be dangerous. *Do Not make any important decisions or sign any important papers. Findings: Few small polyps otherwise normal colon Biopsies were taken today Follow up: My office will send you a letter in 2 to 3 weeks time with the results of the biopsies In the colon looked very normal today. 1. No lifting over 20 pounds or strenuous activity for the first 24 hours after your procedure. After 24 hours there are no restrictions on your activity but you may feel fatigued for a few days. 2. After you arrive home you may have a light meal and return to your normal diet as you can tolerate it without feeling sick to your stomach. 3. You may have a bloated, gaseous feeling in your belly (abdomen) after a colonoscopy. Passing gas and belching will help. Walking or lying down on your left side with your knees flexed may relieve the discomfort. Call the office at [phone] (Office) or [phone] (Hospital) right away if you notice any of the following: a.Vomiting of blood or ?coffee ground stools?. b.Rectal bleeding 1Tbsp, blood clots or continuous bleeding. c.Severe belly (abdominal) pain. d.A hard distended belly (abdomen) and an inability to pass gas. 4. Please don?t expect to have a normal BM (bowel movement) for 2-3 days after your procedure. 5. If there are questions regarding the findings of your procedure, please contact your doctor 6. If you are unable to contact your doctor with a problem, contact the hospital at [phone]. 7. Continue all your regular medications unless directed otherwise. I understand the above instructions and have no questions. Signature of Patient or Adult Escort Name of Responsible Adult Escort Signature of Nurse Date/Time Stand Alone Forms: Anesthesia Discharge Inst., Alice Sanchez (DSU) Activity:: See above Diet:: See above Discharge Orders Discharge Orders: Discharge Order (Routine); Ordered 07/12/24 Ordered By: Gemini Syed DS: Diagnosis Discharge Diagnosis (1) Essential hypertension: Status: Chronic (2) Hyperlipidemia: Status: Acute (3) Thrombocytopenia: Status: Chronic (4) Increased BMI (body mass index): Status: Chronic (5) Bilateral sensorineural hearing loss: Status: Acute (6) Gastroesophageal reflux disease: Status: Chronic (7) Tubular adenoma of colon: Status: Acute (8) Acute diarrhea: Status: Acute (9) Left lower quadrant abdominal pain: Status: Acute (10) Chronic interstitial cystitis: Status: Chronic (11) Cystic disease of kidney: Status: Chronic (12) Primary osteoarthritis of both knees: Status: Resolved (13) Ataxia: Status: Acute (14) Nephrectomy: Status: Acute (15) Obstructive sleep apnea syndrome:
[2024-07-12 08:38] VITALS: BP 106/68; PULSE 53; RESP 18; TEMP 36.3; O2SAT 99
--- NOTE | 2024-07-12 09:25 | W.ANESPOSTOP ---
Postoperative Evaluation Date, Time and Location Date Performed: 07/12/24 Time Performed: 09:25 Patient Location: Day Surgery Unit Vital Signs Most Recent Imported Vital Signs: Most Recent Vital Signs Temp Pulse Resp BP Pulse Ox 36.3 C L 53 L 18 106/68 99 07/12/24 08:38 07/12/24 08:38 07/12/24 08:38 07/12/24 08:38 07/12/24 08:38 Pain Score Most Recent Pain Score: Most Recent Pain Score Pain Level 2 07/12/24 08:38 Assessment Mental Status: Awake (Alert & Oriented to Patient Baseline) Airway and Respiratory Function: Patent airway with normal (patient baseline) respiratory exam Cardiovascular Function: Hemodynamically Stable Hydration Status: Adequately Hydrated Nausea & Vomiting: No Nausea or Vomiting Pain: Pain is tolerable per patient Peripheral Nerve Block: Patient did not receive a nerve block
== END 2024-07-12 09:25 | disposition home or self-care (01) ==
PROVIDERS: PCP Nurse Practitioner Family; Visit Provider Surgery
PROC: 0DJD8ZZ Inspection of Lower Intestinal Tract, Via Natural or Artificial Opening Endoscopic (ICD-10-PCS; CPT 45378; principal; 2024-07-12 07:30)
DX: Z12.11 Encounter for screening for malignant neoplasm of colon (principal); I10 Essential (primary) hypertension; D12.4 Benign neoplasm of descending colon
CPT/HCPCS: 45380; 88305; J2001; J2704; J3490

== ENCOUNTER 2024-11-18 04:16 | Emergency (ER) | payer MEDICARE, SELFPAY ==
--- NOTE | 2024-11-18 04:19 | ED.GENADUL_ITS ---
Discharge Plan Disposition Patient Disposition: Home Condition: Good Discharge Details Clinical Impression: Shingles Primary Care Provider: Ying Dominguez ED Provider: Philipp Leiva Meds and New Rx's Prescriptions: New valacyclovir 1 gram tablet 1,000 mg PO TID Qty: 20 0RF gabapentin 300 mg capsule 300 mg PO TID Qty: 60 0RF Rx Instructions: take 300mg po BID on 11/19/24 then increase to TID starting 11/20/24 morphine 15 mg tablet 15 mg PO Q6H PRN (Reason: pain, severe) Qty: 15 0RF Continued allopurinol 300 mg tablet 300 mg PO DAILY Qty: 90 4RF atenolol 100 mg tablet 100 mg PO DAILY Qty: 90 4RF isosorbide mononitrate 30 mg tablet extended release 24 hr 30 mg PO DAILY Qty: 90 3RF omeprazole 40 mg capsule,delayed release(DR/EC) 40 mg PO DAILY Qty: 90 3RF primidone 50 mg tablet 50 mg PO QHS Qty: 90 1RF rosuvastatin 40 mg tablet 40 mg PO DAILY Qty: 90 3RF Rx Instructions: per [facility] cardiology August 2021 trazodone 50 mg tablet See Rx Instructions .ROUTE .COMPLEX Qty: 90 1RF Dose Instruction: TAKE 1/2 TO 1 (ONE-HALF TO ONE) TABLET BY MOUTH ONCE DAILY AT BEDTIME NEEDED FOR INSOMNIA Rx Instructions: TAKE 1/2 TO 1 (ONE-HALF TO ONE) TABLET BY MOUTH ONCE DAILY AT BEDTIME NEEDED FOR INSOMNIA ropinirole 0.25 mg tablet 0.25 mg PO QHS Qty: 90 3RF Rx Instructions: administer 1-3 hours before bedtime triamcinolone acetonide 0.1 % cream 1 applic topical BID Qty: 30 2RF loratadine [Claritin] 10 mg tablet 10 mg PO DAILY Qty: 90 3RF nystatin 100,000 unit/gram cream 1 applic topical BID Qty: 30 1RF ibuprofen 600 mg tablet 600 mg PO DAILY PRN (Reason: pain) Qty: 30 0RF paroxetine HCl 20 mg tablet 20 mg PO DAILY Qty: 90 4RF Rx Instructions: 11-02-21 increased dose/ take one tablet at bedtime Discharge Instructions Instructions: Shingles Additional Instructions: You were seen for painful rash which is consistent with shingles. We have started you on valacyclovir though typically works better early you start this medication hopeful that it will help resolve the rash quicker. You will also be started on gabapentin to help with the pain, but this may take a couple of days to build up in your system and work. You may take 1 g of acetaminophen every 8 hours. You have been prescribed oral morphine to take for severe pain if needed every 6 hours. Please follow-up with primary care for recheck. Return to ED for any mental status change, fever, severe headache, other concerns. Referrals: Ying Dominguez NP [Primary Care Provider] - [facility] General Mode of arrival: wheelchair . Date/Time Provider Initiated Documentation: 11/18/24 04:18 . Limitations to Documentation: no limitations . Information obtained by: patient and RN notes reviewed . HPI Narrative: Patient presents to ED with right-sided back pain radiating down his leg and rash. Patient reports waking on Monday with pain but no rash. Used IcyHot type cream to help with the pain. By Monday had developed a rash which is now spread from the back down the lateral part of the buttock and wrapping around the anterior thigh. Pain is severe and in the distribution of the rash. He has been using [id number] medications and creams but pain continues to get worse. Denies any abdominal pain. Denies any fever. Did have chickenpox as a child. Has never had shingles previously. Related Data Home Medications ?Medication ?Instructions ?Recorded ?Confirmed nystatin 100,000 unit/gram topical 1 applic topical BID #30 grams 02/28/22 11/18/24 cream ibuprofen 600 mg tablet 600 mg PO DAILY PRN pain #30 tabs 11/03/22 11/18/24 paroxetine HCl 20 mg tablet 20 mg PO DAILY #90 tabs 09/24/23 11/18/24 allopurinol 300 mg tablet 300 mg PO DAILY #90 tab-caps 08/26/24 11/18/24 atenolol 100 mg tablet 100 mg PO DAILY #90 tab-caps 08/26/24 11/18/24 isosorbide mononitrate 30 mg 30 mg PO DAILY #90 tabs 08/26/24 11/18/24 tablet,extended release 24 hr loratadine 10 mg tablet (Claritin) 10 mg PO DAILY #90 tabs 08/26/24 11/18/24 omeprazole 40 mg capsule,delayed 40 mg PO DAILY #90 tab-caps 08/26/24 11/18/24 release primidone 50 mg tablet 50 mg PO QHS #90 tabs 08/26/24 11/18/24 ropinirole 0.25 mg tablet 0.25 mg PO QHS #90 tabs 08/26/24 11/18/24 rosuvastatin 40 mg tablet 40 mg PO DAILY #90 tabs 08/26/24 11/18/24 trazodone 50 mg tablet See Rx Instructions .Route 08/26/24 11/18/24 .COMPLEX #90 tabs triamcinolone acetonide 0.1 % 1 applic topical BID #30 grams 08/26/24 11/18/24 topical cream gabapentin 300 mg capsule 300 mg PO TID #60 caps 11/18/24 morphine 15 mg immediate release 15 mg PO Q6H PRN pain, severe #15 11/18/24 tablet tabs valacyclovir 1 gram tablet 1,000 mg PO TID #20 tabs 11/18/24 Previous Rx's ?Medication ?Instructions ?Recorded nystatin 100,000 unit/gram topical 1 applic topical BID #30 grams 02/28/22 cream ibuprofen 600 mg tablet 600 mg PO DAILY PRN pain #30 tabs 11/03/22 paroxetine HCl 20 mg tablet 20 mg PO DAILY #90 tabs 09/24/23 allopurinol 300 mg tablet 300 mg PO DAILY #90 tab-caps 08/26/24 atenolol 100 mg tablet 100 mg PO DAILY #90 tab-caps 08/26/24 isosorbide mononitrate 30 mg 30 mg PO DAILY #90 tabs 08/26/24 tablet,extended release 24 hr loratadine 10 mg tablet (Claritin) 10 mg PO DAILY #90 tabs 08/26/24 omeprazole 40 mg capsule,delayed 40 mg PO DAILY #90 tab-caps 08/26/24 release primidone 50 mg tablet 50 mg PO QHS #90 tabs 08/26/24 ropinirole 0.25 mg tablet 0.25 mg PO QHS #90 tabs 08/26/24 rosuvastatin 40 mg tablet 40 mg PO DAILY #90 tabs 08/26/24 trazodone 50 mg tablet See Rx Instructions .Route 08/26/24 .COMPLEX #90 tabs triamcinolone acetonide 0.1 % 1 applic topical BID #30 grams 08/26/24 topical cream gabapentin 300 mg capsule 300 mg PO TID #60 caps 11/18/24 morphine 15 mg immediate release 15 mg PO Q6H PRN pain, severe #15 11/18/24 tablet tabs valacyclovir 1 gram tablet 1,000 mg PO TID #20 tabs 11/18/24 Allergies Allergy/AdvReac Type Severity Reaction Status Date / Time No Known Allergies Allergy Verified 11/18/24 04:27 General ARIELLA: 4 Review of Systems Narrative: Per HPI Exam Narrative Exam Narrative: Const: WDWN elderly male in NAD. VS per triage. HEENT: NC/AT. Normal facial exam. Neck: Supple. Trachea midline. Lungs: Normal respiratory effort. Neuro: A+O x 3. Normal speech, mentation. Cranial nerves II - XII grossly intact. No gross motor or sensory deficit. Skin: Purpleish, vesicular rash extending from the midline of the LS-spine across the back, lateral buttocks and thigh, wrapping around to anterior and medial thigh. Medical Decision Making Patient presented with severe back pain involving the right side going down the leg and is in the same exact distribution of vesicular rash that began a day after pain started. Unfortunately has been 5 days with this rash and worsening pain. Rash and pain are all consistent with shingles. He has no neurologic findings and is limited by movement due to pain. Despite 5 days post rash I madan l start him on valacyclovir in hopes that it does help. Will give gabapentin and oral morphine for pain control at this time. He will need to follow-up with primary care. Return precautions provided. Medical Records Medical records reviewed: Yes I reviewed the patient's medical records. Medical records narrative: neurology notes/PCP notes [facility] All Active Problems (Updated 11/18/24 @ 04:44 by Philipp Leiva MD) Shingles (Acute) Acute cerebrovascular accident (CVA) (Acute) Patient did not have a stroke per neurology at [facility] Syncope (Chronic) early 2021 Balanitis (Acute) 02/2022-recurrent External hemorrhoids (Acute 07/20/17) Restless leg syndrome (Acute) Ataxia (Acute) Osteoarthritis of left knee (Acute) depo medrol 12/07/23; 12/22/22 Bilateral sensorineural hearing loss (Acute) Tubular adenoma of colon (Acute ~03/15/22) 03/2022, due in 2026 Insomnia (Chronic) Increased BMI (body mass index) (Chronic 11/14/17) Hearing loss (Chronic 08/01/13) Gastroesophageal reflux disease (Chronic 06/01/17) 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 Surgical History Nephrectomy (~1997) right-secondary to trauma History of colonoscopy (~06/2024) History of loop recorder in situ S/P herniorrhaphy (~04/2016) [facility] Hemorrhoidectomy Family History Mother No problems noted. 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 [employer] Pets and animals: No Sexually active: No Do you think of yourself as: straight/heterosexual Current gender identity: male What is your relationship status?: How often do you talk on the phone with friends or family?: twice per week How often do you get together with friends or relatives?: once per week How often do you attend confucianist or hoahaoism services?: decline to answer Do you belong to any clubs or organized social groups?: no Panel score (0-1 are the most socially isolated patients): 2 Duration: 15-30 minutes/day Bee/Holiness: Non judaism Agree to transfusion: Yes Seatbelt use: always Drive intox or ride w/intox 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
[2024-11-18 04:23] VITALS: BP 171/102; PULSE 57; RESP 20; TEMP 36.3; O2SAT 99
[2024-11-18] MEDS: MORPHine IR 15 MG TAB 7.5 MG PO ×2 (04:36→05:20)
[2024-11-18] MEDS: Gabapentin 300 MG CAP PO (04:37)
[2024-11-18] MEDS: valACYclovir 1,000 MG TAB 1000 MG PO (04:49)
[2024-11-18 04:51] VITALS: BP 142/91; PULSE 58; RESP 16; O2SAT 99
[2024-11-18 05:40] VITALS: BP 150/90; PULSE 60; RESP 16; O2SAT 98
== END 2024-11-18 05:22 | disposition home or self-care (01) ==
LOC: ER 06:00
PROVIDERS: Emergency Provider Emergency Medicine; PCP Nurse Practitioner Family
DX: B02.9 Zoster without complications (principal)
CPT/HCPCS: 99283

== ENCOUNTER 2024-11-26 14:16 | Outpatient (REF) | payer MEDICARE, SELFPAY ==
[2024-11-28 10:13] LABS: Varicella Zoster DNA Result Positive (Negative)
== END 2024-11-26 14:17 | disposition home or self-care (01) ==
LOC: LBN 14:16
PROVIDERS: PCP Nurse Practitioner Family; Visit Provider Nurse Practitioner Family
DX: B02.9 Zoster without complications (principal); R21 Rash and other nonspecific skin eruption; B02.23 Postherpetic polyneuropathy
CPT/HCPCS: 87798; 87070; 87205

== ENCOUNTER 2024-12-23 10:24 | Emergency (ER) | payer MEDICARE, SELFPAY ==
[2024-12-23 10:57] VITALS: BP 117/74; PULSE 62; RESP 20; TEMP 37.2; O2SAT 96
--- NOTE | 2024-12-23 11:00 | DI.RAD_ITS ---
Exam(s) XR CHEST 2V PA LATERAL EXAM: XR CHEST 2V PA LATERAL CLINICAL HISTORY: cough, SOB. TECHNIQUE: 2D digital imaging was performed. COMPARISON: CR XR CHEST 2V PA LATERAL from 05/18/2021 FINDINGS: 2 views: There has been interval placement of a left anterior chest wall cardiac loop detector. Heart size is upper normal. The mediastinum is not widened. No infiltrates nor pleural effusions. No pulmonary edema. IMPRESSION: No acute pulmonary findings. DATA REPOSITORY: RADIATION DOSE DELIVERED:
--- NOTE | 2024-12-23 11:00 | RT.EKG_ITS ---
APPROVED REPORT Exam: Resting ECG Reason for Exam: chest pain Patient Location: E HR:60 bpm ECG Measurements Heart Rate 60 AXIS WA 141 P -20 QRSd 107 QRS 16 QT 420 T 40 QTc 419 Conclusion Sinus rhythm...normal P axis, V-rate 60- 99 No STEMI
[2024-12-23 11:24] LABS: Abs Immature Grans 0.02 10^3/uL (0.0-0.06); Absolute Basophil Count 0.02 10^3/uL (0.0-0.2); Absolute Eosinophil Count 0.07 10^3/uL (0.0-0.7); Absolute Lymphocyte Count 0.73 10^3/uL (1.2-3.4); Absolute Monocyte Count 0.64 10^3/uL (0.1-0.8); Absolute Neutrophil Count 5.19 10^3/uL (1.2-6.7); Basophils % 0.3 %; HGB 13.5 g/dL (13.5-17.5); Immature Grans % 0.3 %; Lymphocytes % 10.9 %; MCH 31.9 pg (27.0-33.0); MCHC 33.8 % (32.0-36.0); MCV 95 fL (80-95); MPV 11.6 fL (8.0-11.0); Monocytes % 9.6 %; Neutrophils % 77.9 %; Platelet Count 125 10^3/uL (130-400); RBC 4.23 10^6/uL (4.36-5.78); WBC 6.67 10^3/uL (4.4-10.8)
[2024-12-23 11:25] VITALS: BP 117/74; PULSE 62; RESP 20; TEMP 37.2; O2SAT 96
[2024-12-23 11:28] VITALS: PULSE 58; RESP 17; O2SAT 98
[2024-12-23 11:38] LABS: ALT 29 U/L (16-63); AST 12 U/L (15-37); Albumin 3.6 g/dL (3.4-5.0); Alkaline Phosphatase 73 U/L (46-116); Anion Gap 4.3 mmol/L (3-11); BUN 16 mg/dL (7-18); Bilirubin, Total 0.36 mg/dL (0.2-1.0); CO2 28.7 mmol/L (21.0-32.0); CREATININE 1.2 mg/dL (0.70-1.30); Calcium 8.2 mg/dL (8.5-10.1); Chloride 107 mmol/L (98-107); Estimated GFR 64.65 (mL/min/1.73m2); Glucose 144 mg/dL (74-106); Potassium 4.4 mmol/L (3.5-5.1); Sodium 140 mmol/L (136-145); Total Protein 7.1 g/dL (6.4-8.2)
--- NOTE | 2024-12-23 11:45 | DI.CT_ITS ---
Exam(s) CT ABDOMEN PELVIS W EXAM: CT ABDOMEN PELVIS W CLINICAL HISTORY: lower abd pain with diarrhea. TECHNIQUE: Imaging Protocol: Axial computed tomography images with coronal and sagittal reformatted images were created and reviewed CONTRAST MATERIAL: Intravenous: Omnipaque-350 100cc Oral: None COMPARISON: CT CT THORAX ABD/PEL CTA from 11/06/[address] THORACIC LUMBAR SPINE REC from 11/06/[address] ABDOMEN PELVIS W from 03/05/2024 FINDINGS: VISUALIZED LUNG BASES: No nodules nor pleural effusions evident. ABDOMEN: There is no ascites. LIVER: There are no focal hepatic lesions evident. No dilated intrahepatic ducts. GALLBLADDER/BILIARY: No obvious gallbladder pathology. CBD is not dilated. PANCREAS: No evidence of pancreatic mass nor dilatation of the pancreatic duct. SPLEEN: Is mildly enlarged measuring 13.8 cm. No splenic lesions. Splenic and portal veins are brown nt. ADRENALS: There are no significant adrenal masses. KIDNEYS:Right kidney is again noted be surgically absent and there are no abnormal masses in the a ri ght renal fossa. Also no regional lymphadenopathy. Benign cysts are again noted in the opposite-lef t kidney.. ABDOMINAL AORTA: The infrarenal abdominal aorta is atherosclerotic but without significant dilatation . Atherosclerotic dilatation of the distal left common iliac artery to 1.8 cm is again noted, unchan ged. LYMPH NODES:There is no retroperitoneal nor paraaortic adenopathy. ABDOMINAL WALL: There are bilateral fat only containing inguinal hernias noted, similar to previous. GI: There is no evidence of bowel obstruction, free air, nor abscess. There fluid-filled but nondila ansley small bowel loops evident. PELVIS: GI: No evidence of appendicitis.Redundant sigmoid again noted. No evidence of sigmoid diverticulitis . LYMPH NODES: There is no intrapelvic nor inguinal adenopathy. REPRODUCTIVE: Prostate size upper normal. Contains calcification. URINARY BLADDER: No calculi nor obvious masses evident OSSEOUS: There are no fractures nor significant listhesis. However, there is a lucenty in the mining captain ior aspect of the superior endplate of L4 and smaller lucency in the posterior aspect of the inferior endplate of L3. The L3 finding is unchanged from CT scan of 2020. The L4 finding was not evident i n 2020. There has been interval development of degenerative disc disease. 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 This is stable-unchanged from more recent CT scan 03/05/2024. IMPRESSION: 1. Compared to prior CT scans listed above there is again noted evidence of previous right nephrectom y with no new abnormal tissue in the right renal fossa and benign-appearing cysts in the opposite-lef t kidney without evidence of solid left renal mass nor hydronephrosis. 2. There is mild splenomegaly with cephalocaudal measurement of the spleen being 13.8 cm. This, guzmán boaz, is also unchanged from at least 11/06/2021 CT scan. 3. 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 4. There are bilateral fat only containing inguinal hernias again noted. 5. Mobile cecum again noted which is in the right upper quadrant. No evidence of appendicitis. The re is some fluid-filled small bowel loops which are not significantly dilated. Also some fluid in th e right-side of the colon. Correlation with diarrhea state recommended Osseous findings at L4 level which is unchanged from CT scan of February 2024 but which was not evident in 2020. 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 Report called by myself to ER provider 12/23/2029 family 1:10 p.m. RADIATION DOSE DELIVERED: 568.91mGy.cm Total DLP DATA REPOSITORY: All CT scans at this facility are submitted to the National Radiology Data Registry (NRDR) Dose Index Registry (DIR) with the [employer] (A[employer]). RADIATION OPTIMIZATION: All CT scans at this facility use at least one of these dose optimization te chniques: automated exposure control; mA and/or kV adjustment per patient size (includes targeted exa ms where dose is matched to clinical indication); or iterative reconstruction.
--- NOTE | 2024-12-23 11:46 | W.ED.GENAD ---
Discharge Plan Disposition Patient Disposition: Home Condition: Good Discharge Details Clinical Impression: Influenza A, Wheezing Primary Care Provider: Ying Dominguez ED Provider: Joann Dahl Home Meds and New Rx's Prescriptions: New oseltamivir [Tamiflu] 75 mg capsule 75 mg PO BID 5 Days Qty: 10 0RF prednisone 20 mg tablet 60 mg PO DAILY 5 Days Qty: 15 0RF Discontinued prednisone 5 mg tablet 5 mg PO DIRECTED Qty: 75 0RF Rx Instructions: 40 mg x 3 days, 30 mg x 3 days, 20 mg x 3 days, 15 mg x 3 days, 10 mg x 3 days, 5 mg x 3 days, 2.5 mg x 3 days, then stop. No Action allopurinol 300 mg tablet 300 mg PO DAILY Qty: 90 4RF atenolol 100 mg tablet 100 mg PO DAILY Qty: 90 4RF isosorbide mononitrate 30 mg tablet extended release 24 hr 30 mg PO DAILY Qty: 90 3RF omeprazole 40 mg capsule,delayed release(DR/EC) 40 mg PO DAILY Qty: 90 3RF primidone 50 mg tablet 50 mg PO QHS Qty: 90 1RF rosuvastatin 40 mg tablet 40 mg PO DAILY Qty: 90 3RF Rx Instructions: per [facility] [place] August 2021 trazodone 50 mg tablet See Rx Instructions .ROUTE .COMPLEX Qty: 90 1RF Dose Instruction: TAKE 1/2 TO 1 (ONE-HALF TO ONE) TABLET BY MOUTH ONCE DAILY AT BEDTIME NEEDED FOR INSOMNIA Rx Instructions: TAKE 1/2 TO 1 (ONE-HALF TO ONE) TABLET BY MOUTH ONCE DAILY AT BEDTIME NEEDED FOR INSOMNIA ropinirole 0.25 mg tablet 0.25 mg PO QHS Qty: 90 3RF Rx Instructions: administer 1-3 hours before bedtime triamcinolone acetonide 0.1 % cream 1 applic topical BID Qty: 30 2RF loratadine [Claritin] 10 mg tablet 10 mg PO DAILY Qty: 90 3RF gabapentin 10 % cream, metered-dose applicator 1 applic topical BID & HS Qty: 30 0RF Rx Instructions: For compounding: Gabapentin 10%/Ketoprofen 20%/Lidocaine HCl 5% Topical Cream for Shingles to the right lower back, right thigh and groin ibuprofen 600 mg tablet 600 mg PO DAILY PRN (Reason: pain) Qty: 30 0RF nystatin 100,000 unit/gram cream 1 applic topical BID Qty: 30 1RF Rx Instructions: Apply to bilateral groin and head of penis twice a day for 2 weeks and then as needed gabapentin 600 mg tablet 600 mg PO TID 28 Days Qty: 84 1RF paroxetine HCl 20 mg tablet 20 mg PO DAILY Qty: 90 4RF Rx Instructions: 11-02-21 increased dose/ take one tablet at bedtime valacyclovir 1 gram tablet 1,000 mg PO TID Qty: 20 0RF Discharge Instructions Instructions: Flu Additional Instructions: Please call [facility] to schedule a follow-up appointment within the week if possible. I encourage you to use the albuterol inhaler with spacer for work shortness of breath/cough. Please use 2 to 4 puffs every 4-6 hours as needed. You are also being prescribed prednisone for COPD exacerbation, as well as Tamiflu for influenza A. Please stay well hydrated, drinking plenty of fluids throughout the day. You may use tylenol 650 mg every 8 hours as needed for fever /chills or body aches. Avoid ibuprofen while you are on the prednisone. Get plenty of rest. Practice good handwashing and wear a mask in public if you are coughing to avoid spreading illness to others. Return to emergency care if you develop difficulty breathing, chest pains, worsening of cough or fever after initial improvement, or if you are very worried and need to be rechecked again immediately. Referrals: Ying Dominguez NP [Primary Care Provider] - [facility] General Date/Time Provider Initiated Documentation: 12/23/24 10:42. HPI Narrative: Ole Campos) is a 69 year old mal who presents to the emergency department today for evaluation of viral symptoms with shortness of breath, cough, and chest pain. He reports symptoms started a couple of days ago, he has had fevers/chills with episodes of sweating, mild headache, congestion, sore throat, sternal chest discomfort that is intermittent (no obvious aggravating or alleviating factors, ongoing for days), wheezing, cough/shortness of breath, and lower abdominal discomfort with diarrhea. Past medical history is significant for CVA, VT, tubular adenoma of colon, GERD. Physical exam remarkable for I+E wheezes in all lung velásquez, occasional cough. Normal heart sounds. Abdomen is soft, nondistended, mild tenderness with palpation of lower abdomen, no rigidity or guarding. MMM. Overall Ole is alert and oriented, in no acute distress, easily conversational. Vital signs reassuring. No obvious pedal edema or JVD. D/dx includes but is not limited to: Viral illness such as flu or COVID, pneumonia, COPD exacerbation, ACS, electrolyte imbalance, appendicitis, colitis, partial bowel obstruction I independently interpreted the following tests: CBC unchanged from previous, CMP and troponin reassuring. Flu A positive. COVID-negative. No obvious infiltrate noted on chest x-ray, this was confirmed by radiologist. EKG reassuring, normal sinus rhythm, rate 60. Normal intervals. No changes consistent with acute ischemia. CT abdomen/pelvis performed, no acute changes noted. While in the emergency department, Enmanuel received a duoneb with good improvement of symptoms. He reports that he has had to use treatment in the past for wheezing; albuterol inhaler with spacer provided after RN teaching. History and presentation consistent with influenza A. Confirmed with [facility] pharmacist that Tamiflu could be used with current valacyclovir treatment. Patient to start Tamiflu for flu A and albuterol as needed for wheeze. I did reach out to PCP Ying Dominguez; she will arrange for close follow-up. Reviewed discharge instructions with patient and his , including symptomatic management and red flags indicating need for return to emergency care Related Data Home Medications ?Medication ?Instructions ?Recorded ?Confirmed ibuprofen 600 mg tablet 600 mg PO DAILY PRN pain #30 tabs 11/03/22 12/17/24 paroxetine HCl 20 mg tablet 20 mg PO DAILY #90 tabs 09/24/23 12/17/24 allopurinol 300 mg tablet 300 mg PO DAILY #90 tab-caps 08/26/24 12/17/24 atenolol 100 mg tablet 100 mg PO DAILY #90 tab-caps 08/26/24 12/17/24 isosorbide mononitrate 30 mg 30 mg PO DAILY #90 tabs 08/26/24 12/17/24 tablet,extended release 24 hr loratadine 10 mg tablet (Claritin) 10 mg PO DAILY #90 tabs 08/26/24 12/17/24 omeprazole 40 mg capsule,delayed 40 mg PO DAILY #90 tab-caps 08/26/24 12/17/24 release primidone 50 mg tablet 50 mg PO QHS #90 tabs 08/26/24 12/17/24 ropinirole 0.25 mg tablet 0.25 mg PO QHS #90 tabs 08/26/24 12/17/24 rosuvastatin 40 mg tablet 40 mg PO DAILY #90 tabs 08/26/24 12/17/24 trazodone 50 mg tablet See Rx Instructions .Route 08/26/24 12/17/24 .COMPLEX #90 tabs triamcinolone acetonide 0.1 % 1 applic topical BID #30 grams 08/26/24 12/17/24 topical cream valacyclovir 1 gram tablet 1,000 mg PO TID #20 tabs 11/18/24 12/17/24 gabapentin 10 % cream in 1 applic topical BID & HS #30 grams 12/02/24 12/17/24 metered-dose applicator nystatin 100,000 unit/gram topical 1 applic topical BID fungal #30 12/09/24 12/17/24 cream grams gabapentin 600 mg tablet 600 mg PO TID 4 weeks #84 tabs 12/17/24 12/17/24 oseltamivir 75 mg capsule (Tamiflu) 75 mg PO BID 5 days #10 caps 12/23/24 prednisone 20 mg tablet 60 mg (3 x 20 mg) PO DAILY 5 days 12/23/24 #15 tabs Previous Rx's ?Medication ?Instructions ?Recorded ibuprofen 600 mg tablet 600 mg PO DAILY PRN pain #30 tabs 11/03/22 paroxetine HCl 20 mg tablet 20 mg PO DAILY #90 tabs 09/24/23 allopurinol 300 mg tablet 300 mg PO DAILY #90 tab-caps 08/26/24 atenolol 100 mg tablet 100 mg PO DAILY #90 tab-caps 08/26/24 isosorbide mononitrate 30 mg 30 mg PO DAILY #90 tabs 08/26/24 tablet,extended release 24 hr loratadine 10 mg tablet (Claritin) 10 mg PO DAILY #90 tabs 08/26/24 omeprazole 40 mg capsule,delayed 40 mg PO DAILY #90 tab-caps 08/26/24 release primidone 50 mg tablet 50 mg PO QHS #90 tabs 08/26/24 ropinirole 0.25 mg tablet 0.25 mg PO QHS #90 tabs 08/26/24 rosuvastatin 40 mg tablet 40 mg PO DAILY #90 tabs 08/26/24 trazodone 50 mg tablet See Rx Instructions .Route 08/26/24 .COMPLEX #90 tabs triamcinolone acetonide 0.1 % 1 applic topical BID #30 grams 08/26/24 topical cream valacyclovir 1 gram tablet 1,000 mg PO TID #20 tabs 11/18/24 gabapentin 10 % cream in 1 applic topical BID & HS #30 grams 12/02/24 metered-dose applicator nystatin 100,000 unit/gram topical 1 applic topical BID fungal #30 12/09/24 cream grams gabapentin 600 mg tablet 600 mg PO TID 4 weeks #84 tabs 12/17/24 oseltamivir 75 mg capsule (Tamiflu) 75 mg PO BID 5 days #10 caps 12/23/24 prednisone 20 mg tablet 60 mg (3 x 20 mg) PO DAILY 5 days 12/23/24 #15 tabs Allergies Allergy/AdvReac Type Severity Reaction Status Date / Time No Known Allergies Allergy Verified 12/17/24 14:57 General Stated Complaint: RespSymp ARIELLA: 3 Review of Systems Narrative: see HPI Exam Const General: cooperative, no acute distress, well developed and well groomed Nutritional Appearance: average body habitus and well nourished Orientation: alert and oriented x3 HENMT Mouth: moist mucous membranes Resp Effort & Inspection: normal respiratory effort and able to speak in complete sentences Auscultation: wheezes (I+E wheezes in all velásquez) Cardio Rate: regular rate Rhythm: regular rhythm GI Inspection: normal to inspection Palpation: soft, not firm, no guarding, not rigid and tender (lower abdomen) Course Vital Signs Vital signs: Vital Signs Temperature 37.2 C 12/23/24 10:57 Pulse 62 12/23/24 10:57 Respiratory Rate 20 12/23/24 10:57 Blood Pressure 117/74 12/23/24 10:57 Pulse Oximetry 96 12/23/24 10:57 Temperature 37.2 C 12/23/24 11:25 Temperature Source Oral 12/23/24 11:25 Pulse 58 L 12/23/24 11:28 Respiratory Rate 17 12/23/24 11:28 Respiratory Effort Short of Breath, Labored 12/23/24 11:28 Respiratory Depth Deep 12/23/24 11:22 Blood Pressure 117/74 12/23/24 11:25 Blood Pressure Position Sitting 12/23/24 11:25 Pulse Oximetry 98 12/23/24 11:28 Oxygen Delivery Method Room Air 12/23/24 11:28 Oxygen Flow Rate 0 12/23/24 11:28 Pain Level 6 12/23/24 11:25 Lab/Test Results Lab/Test Results: Laboratory Tests Range/Units 12/23/24 11:10 WBC (4.4-10.8) 10^3/uL 6.67 RBC (4.36-5.78) 10^6/uL 4.23 L Hgb (13.5-17.5) g/dL 13.5 Hct (40.0-50.0) % 40.0 MCV (80-95) fL 95 MCH (27.0-33.0) pg 31.9 MCHC (32.0-36.0) % 33.8 RDW (11.8-14.1) % 13.0 Plt Count (130-400) 10^3/uL 125 L MPV (8.0-11.0) fL 11.6 H Immature Gran % % 0.3 Neutrophils % % 77.9 Lymphocytes % % 10.9 Monocytes % % 9.6 Eosinophils % % 1.0 Basophils % % 0.3 Nucleated RBC % (0.0-0.3) % 0.0 Absolute Neutrophils (1.2-6.7) 10^3/uL 5.19 Absolute Lymphocytes (1.2-3.4) 10^3/uL 0.73 L Absolute Monocytes (0.1-0.8) 10^3/uL 0.64 Absolute Eosinophils (0.0-0.7) 10^3/uL 0.07 Absolute Basophils (0.0-0.2) 10^3/uL 0.02 Sodium (136-145) mmol/L 140 Potassium (3.5-5.1) mmol/L 4.4 Chloride (98-107) mmol/L 107 Carbon Dioxide (21.0-32.0) mmol/L 28.7 Anion Gap (3-11) mmol/L 4.3 BUN (7-18) mg/dL 16 Creatinine (0.70-1.30) mg/dL 1.2 Est GFR (CKD-EPI 2020) (mL/min/1.73m2) 64.65 Glucose (74-106) mg/dL 144 H Calcium (8.5-10.1) mg/dL 8.2 L Total Bilirubin (0.2-1.0) mg/dL 0.36 AST (15-37) U/L 12 L ALT (16-63) U/L 29 Alkaline Phosphatase (46-116) U/L 73 Total Protein (6.4-8.2) g/dL 7.1 Albumin (3.4-5.0) g/dL 3.6 Medical Decision Making Imaging Data Radiologic Study: Radiologist's impression: Exam(s) CT ABDOMEN PELVIS W EXAM: CT ABDOMEN PELVIS W CLINICAL HISTORY: lower abd pain with diarrhea. TECHNIQUE: Imaging Protocol: Axial computed tomography images with coronal and sagittal reformatted images were created and reviewed CONTRAST MATERIAL: Intravenous: Omnipaque-350 100cc Oral: None COMPARISON: CT CT THORAX ABD/PEL CTA from 11/06/[address] THORACIC LUMBAR SPINE REC from 11/06/[address] ABDOMEN PELVIS W from 03/05/2024 FINDINGS: VISUALIZED LUNG BASES: No nodules nor pleural effusions evident. ABDOMEN: There is no ascites. LIVER: There are no focal hepatic lesions evident. No dilated intrahepatic ducts. GALLBLADDER/BILIARY: No obvious gallbladder pathology. CBD is not dilated. PANCREAS: No evidence of pancreatic mass nor dilatation of the pancreatic duct. SPLEEN: Is mildly enlarged measuring 13.8 cm. No splenic lesions. Splenic and portal veins are patent. ADRENALS: There are no significant adrenal masses. KIDNEYS:Right kidney is again noted be surgically absent and there are no abnormal masses in the a right renal fossa. Also no regional lymphadenopathy. Benign cysts are again noted in the opposite-left kidney.. ABDOMINAL AORTA: The infrarenal abdominal aorta is atherosclerotic but without significant dilatation. Atherosclerotic dilatation of the distal left common iliac artery to 1.8 cm is again noted, unchanged. LYMPH NODES:There is no retroperitoneal nor paraaortic adenopathy. ABDOMINAL WALL: There are bilateral fat only containing inguinal hernias noted, similar to previous. GI: There is no evidence of bowel obstruction, free air, nor abscess. There fluid-filled but nondilated small bowel loops evident. PELVIS: GI: No evidence of appendicitis.Redundant sigmoid again noted. No evidence of sigmoid diverticulitis. LYMPH NODES: There is no intrapelvic nor inguinal adenopathy. REPRODUCTIVE: Prostate size upper normal. Contains calcification. URINARY BLADDER: No calculi nor obvious masses evident OSSEOUS: There are no fractures nor significant listhesis. However, there is a lucenty in the posterior aspect of the superior endplate of L4 and smaller lucency in the posterior aspect of the inferior endplate of L3. The L3 finding is unchanged from CT scan of 2020. The L4 finding was not evident in 2020. There has been interval development of degenerative disc disease. I suspect that this is probably Schmorl's node invagination. This is stable-unchanged from more recent CT scan 03/05/2024. IMPRESSION: 1. Compared to prior CT scans listed above there is again noted evidence of previous right nephrectomy with no new abnormal tissue in the right renal fossa and benign-appearing cysts in the opposite-left kidney without evidence of solid left renal mass nor hydronephrosis. 2. There is mild splenomegaly with cephalocaudal measurement of the spleen being 13.8 cm. This, however, is also unchanged from at least 11/06/2021 CT scan. 3. 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 4. There are bilateral fat only containing inguinal hernias again noted. 5. Mobile cecum again noted which is in the right upper quadrant. No evidence of appendicitis. There is some fluid-filled small bowel loops which are not significantly dilated. Also some fluid in the right-side of the colon. Correlation with diarrhea state recommended Osseous findings at L4 level which is unchanged from CT scan of February 2024 but which was not evident in 2020. 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 Quality:SDOH Health Related Social Needs: No Data to Display PFSH All Active Problems (Updated 12/23/24 @ 13:36 by Joann Gómez) Wheezing (Acute) Influenza A (Acute) Acute cerebrovascular accident (CVA) (Acute) Patient did not have a stroke per neurology at [facility] Syncope (Chronic) early 2021 Balanitis (Acute) 02/2022-recurrent External hemorrhoids (Acute 07/20/17) Restless leg syndrome (Acute) Ataxia (Acute) Osteoarthritis of left knee (Acute) depo medrol 12/07/23; 12/22/22 Bilateral sensorineural hearing loss (Acute) Tubular adenoma of colon (Acute ~03/15/22) 03/2022, due in 2026 Insomnia (Chronic) Increased BMI (body mass index) (Chronic 11/14/17) Hearing loss (Chronic 08/01/13) Gastroesophageal reflux disease (Chronic 06/01/17) 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 Surgical History Nephrectomy (~1997) right-secondary to trauma History of colonoscopy (~06/2024) History of loop recorder in situ S/P herniorrhaphy (~04/2016) [facility] Hemorrhoidectomy Family History Mother No problems noted. 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 [employer] Pets and animals: No Sexually active: No Do you think of yourself as: straight/heterosexual Current gender identity: male What is your relationship status?: How often do you talk on the phone with friends or family?: twice per week How often do you get together with friends or relatives?: once per week How often do you attend judaism or christianity services?: decline to answer Do you belong to any clubs or organized social groups?: no Panel score (0-1 are the most socially isolated patients): 2 Duration: 15-30 minutes/day Bee/Pentecostal: Non congregation Agree to transfusion: Yes Seatbelt use: always Drive intox or ride w/intox transport driver: No Working smoke detector in home: Yes Carbon monox detector in home: Yes Do you feel safe at home: Yes Do you feel safe in your relationship?: Yes Victim of physical abuse: No Victim of emotional abuse: No Victim of sexual abuse: No
[2024-12-23 11:53] VITALS: PULSE 67; RESP 12; O2SAT 100
[2024-12-23] MEDS: Albuterol/Ipratropium 3 ML UPD VIAL UPD (11:53)
[2024-12-23 11:55] LABS: Lab Add On Test DONE
[2024-12-23] MEDS: Famotidine 20 MG/2 ML VIAL IVP (12:04)
[2024-12-23] MEDS: Normal Saline 50 ML 400 ML (12:05)
[2024-12-23] MEDS: Omnipaque 350 MG/ML 100 ML BTL IJ (12:15)
[2024-12-23 12:17] LABS: Troponin I 8 ng/L (<or=76)
[2024-12-23] MEDS: Normal Saline - Diluent 50 ML VIAL IJ (12:17)
[2024-12-23] MEDS: nitroGLYcerin 0.4 MG TAB SL ×2 (12:36→12:44)
[2024-12-23] MEDS: Acetaminophen 325 MG TAB (12:42)
[2024-12-23 13:10] LABS: Troponin I 8 ng/L (<or=76)
[2024-12-23] MEDS: Albuterol HFA 8 GM 60 PUFF INH IH (13:51)
[2024-12-23] MEDS: predniSONE 20 MG TAB 60 MG PO (13:51)
[2024-12-23] MEDS: Inhaler, Assist Device 1 EACH MC (13:53)
[2024-12-23 13:59] VITALS: BP 150/82; PULSE 78; RESP 20; TEMP 36.8; O2SAT 97
--- NOTE | 2024-12-25 08:47 | NUR.NOTE ---
Access chart to reconcile EKG orders with EKG's in [facility]. Duplicate order cancelled. Nursing Note:
== END 2024-12-23 14:11 | disposition home or self-care (01) ==
PROVIDERS: Emergency Provider Nurse Practitioner Family; PCP Nurse Practitioner Family
DX: J10.1 Influenza due to other identified influenza virus with other respiratory manifestations (principal); R06.2 Wheezing; I25.2 Old myocardial infarction; I10 Essential (primary) hypertension; E78.5 Hyperlipidemia, unspecified; Z86.73 Personal history of transient ischemic attack (TIA), and cerebral infarction without residual deficits; Z95.818 Presence of other cardiac implants and grafts; Z90.5 Acquired absence of kidney
CPT/HCPCS: 36415; 80053; 87426; 93005; 96374; 99285; 71046; 74177; 84484; 85025; 93010; J3490; J7512; J7620

== ENCOUNTER → 2025-05-20 08:06 | Outpatient (BNVA) | payer MEDICARE, SELFPAY | PROVIDERS: PCP Nurse Practitioner Family; Referring Provider Nurse Practitioner Family; Visit Provider Podiatrist | DX: M20.41 Other hammer toe(s) (acquired), right foot (principal); M20.42 Other hammer toe(s) (acquired), left foot; L84 Corns and callosities; M79.674 Pain in right toe(s); M79.675 Pain in left toe(s); L60.3 Nail dystrophy; B35.1 Tinea unguium; L85.8 Other specified epidermal thickening; B35.3 Tinea pedis; E11.9 Type 2 diabetes mellitus without complications; N18.9 Chronic kidney disease, unspecified; L60.2 Onychogryphosis; L60.8 Other nail disorders; R23.4 Changes in skin texture | CPT/HCPCS: 99213 ==

== ENCOUNTER 2025-07-25 15:02 | Emergency (ER) | payer MEDICARE, SELFPAY ==
[2025-07-25 15:04] VITALS: BP 152/82; PULSE 88; RESP 16; TEMP 36.9; O2SAT 98
--- NOTE | 2025-07-25 15:50 | W.ED.GENAD ---
Discharge Plan Disposition Patient Disposition: Home Condition: Stable Discharge Details Clinical Impression: Lumbar back pain, Bilateral hip pain Primary Care Provider: Ying Dominguez ED Provider: Cesario Villatoro Salinas Meds and New Rx's Prescriptions: New diazepam [Valium] 5 mg tablet 5 mg PO BID PRN (Reason: muscle spasm) Qty: 12 0RF lidocaine 5 % adhesive patch,medicated 1 patch topical DAILY Qty: 30 0RF Rx Instructions: leave on most painful area for up to 12 hrs Continued isosorbide mononitrate 30 mg tablet extended release 24 hr 30 mg PO DAILY Qty: 90 3RF omeprazole 40 mg capsule,delayed release(DR/EC) 40 mg PO DAILY Qty: 90 3RF rosuvastatin 40 mg tablet 40 mg PO DAILY Qty: 90 3RF Rx Instructions: per [facility] [place] August 2021 trazodone 50 mg tablet See Rx Instructions .ROUTE .COMPLEX Qty: 90 1RF Dose Instruction: TAKE 1/2 TO 1 (ONE-HALF TO ONE) TABLET BY MOUTH ONCE DAILY AT BEDTIME NEEDED FOR INSOMNIA Rx Instructions: TAKE 1/2 TO 1 (ONE-HALF TO ONE) TABLET BY MOUTH ONCE DAILY AT BEDTIME NEEDED FOR INSOMNIA loratadine [Claritin] 10 mg tablet 10 mg PO DAILY Qty: 90 3RF albuterol sulfate 90 mcg/actuation HFA aerosol inhaler 2 puff inhalation Q6H PRN paroxetine HCl 20 mg tablet 20 mg PO DAILY Qty: 90 4RF Rx Instructions: 11-02-21 increased dose/ take one tablet at bedtime ropinirole 1 mg tablet 1 mg PO QHS Qty: 90 3RF Rx Instructions: administer 1-3 hours before bedtime metformin 500 mg tablet extended release 24 hr 500 mg PO DAILY Qty: 90 3RF amlodipine 5 mg tablet 5 mg PO DAILY Patient Comments: TAKE 1 TABLET BY MOUTH ONCE DAILY clotrimazole 1 % cream 1 applic topical BID Qty: 45 1RF Rx Instructions: Apply to affected areas twice a dayfor 2-4wks ibuprofen 600 mg tablet 600 mg PO DAILY PRN (Reason: pain) Qty: 30 0RF ketoconazole 2 % cream 1 applic topical DAILY Qty: 120 6RF Rx Instructions: Apply to 1g to skin and toenails once daily primidone 50 mg tablet 50 mg PO QHS Qty: 90 1RF gabapentin 600 mg tablet 600 mg PO TID Qty: 84 1RF triamcinolone acetonide 0.1 % cream 1 applic topical BID Qty: 30 2RF Rx Instructions: Apply small amount to bilateral rash on temples twice daily for two weeks and then as needed. HPI General Mode of arrival: ambulatory. Date/Time Provider Initiated Documentation: 07/25/25 15:04. Limitations to Documentation: no limitations. Information obtained by: patient. History of Present Illness 70 year old M presents to the emergency department with the chief complaint of lower back pain, described as moderate, Quality is described as aching, Patient started experiencing this month(s) (2) and it has been constant. No relieving factors improve symptom(s), No exacerbating factors reported . Patient notes no other symptoms.; denies chest pain, fever/chills, nausea/vomiting and shortness of breath. Patient did receive the following treatments prior to arrival, none Related Data Home Medications ?Medication ?Instructions ?Recorded ?Confirmed ibuprofen 600 mg tablet 600 mg PO DAILY PRN pain #30 tabs 11/03/22 07/25/25 isosorbide mononitrate 30 mg 30 mg PO DAILY #90 tabs 08/26/24 07/25/25 tablet,extended release 24 hr loratadine 10 mg tablet (Claritin) 10 mg PO DAILY #90 tabs 08/26/24 07/25/25 omeprazole 40 mg capsule,delayed 40 mg PO DAILY #90 tab-caps 08/26/24 07/25/25 release rosuvastatin 40 mg tablet 40 mg PO DAILY #90 tabs 08/26/24 07/25/25 trazodone 50 mg tablet See Rx Instructions .Route 08/26/24 07/25/25 .COMPLEX #90 tabs albuterol sulfate 90 mcg/actuation 2 puff inhalation Q6H PRN 12/26/24 07/25/25 aerosol inhaler paroxetine HCl 20 mg tablet 20 mg PO DAILY #90 tabs 12/26/24 07/25/25 primidone 50 mg tablet 50 mg PO QHS #90 tabs 02/03/25 07/25/25 metformin 500 mg tablet,extended 500 mg PO DAILY #90 tabs 04/10/25 07/25/25 release 24 hr ropinirole 1 mg tablet 1 mg PO QHS #90 tabs 04/10/25 07/25/25 gabapentin 600 mg tablet 600 mg PO TID #84 tabs 04/21/25 07/25/25 ketoconazole 2 % topical cream 1 applic topical DAILY #120 grams 05/20/25 07/25/25 amlodipine 5 mg tablet 5 mg PO DAILY 07/15/25 07/25/25 clotrimazole 1 % topical cream 1 applic topical BID #45 grams 07/15/25 07/25/25 triamcinolone acetonide 0.1 % 1 applic topical BID rash #30 grams 07/19/25 07/25/25 topical cream diazepam 5 mg tablet (Valium) 5 mg PO BID PRN muscle spasm #07/25/25 tabs lidocaine 5 % topical patch 1 patch topical DAILY #30 ea 07/25/25 Previous Rx's ?Medication ?Instructions ?Recorded ibuprofen 600 mg tablet 600 mg PO DAILY PRN pain #30 tabs 11/03/22 isosorbide mononitrate 30 mg 30 mg PO DAILY #90 tabs 08/26/24 tablet,extended release 24 hr loratadine 10 mg tablet (Claritin) 10 mg PO DAILY #90 tabs 08/26/24 omeprazole 40 mg capsule,delayed 40 mg PO DAILY #90 tab-caps 08/26/24 release rosuvastatin 40 mg tablet 40 mg PO DAILY #90 tabs 08/26/24 trazodone 50 mg tablet See Rx Instructions .Route 08/26/24 .COMPLEX #90 tabs paroxetine HCl 20 mg tablet 20 mg PO DAILY #90 tabs 12/26/24 primidone 50 mg tablet 50 mg PO QHS #90 tabs 02/03/25 metformin 500 mg tablet,extended 500 mg PO DAILY #90 tabs 04/10/25 release 24 hr ropinirole 1 mg tablet 1 mg PO QHS #90 tabs 04/10/25 gabapentin 600 mg tablet 600 mg PO TID #84 tabs 04/21/25 ketoconazole 2 % topical cream 1 applic topical DAILY #120 grams 05/20/25 clotrimazole 1 % topical cream 1 applic topical BID #45 grams 07/15/25 triamcinolone acetonide 0.1 % 1 applic topical BID rash #30 grams 07/19/25 topical cream diazepam 5 mg tablet (Valium) 5 mg PO BID PRN muscle spasm #07/25/25 tabs lidocaine 5 % topical patch 1 patch topical DAILY #30 ea 07/25/25 Allergies Allergy/AdvReac Type Severity Reaction Status Date / Time No Known Allergies Allergy Verified 07/25/25 16:10 General Stated Complaint: Nk/Back Pain ARIELLA: 4 Review of Systems All systems reviewed & are unremarkable except as noted in HPI and below Constitutional Constitutional: Denies chills and Denies fever(s) Cardiovascular Cardiovascular: Denies chest pain and Denies dyspnea Respiratory Respiratory: Denies cough and Denies dyspnea Gastrointestinal Gastrointestinal: Denies abdominal pain, Denies nausea and Denies vomiting Genitourinary Genitourinary: Denies dysuria Musculoskeletal Musculoskeletal: Reports back pain and Reports arthralgias Exam Const General: no acute distress Orientation: alert HENMT Head: normal to inspection Ears: external ears normal General nose exam: external nose normal Mouth: moist mucous membranes Eyes General: appearance normal, both eyes and all related structures Neck Neck: normal visual inspection Resp Effort & Inspection: normal respiratory effort and able to speak in complete sentences Cardio Rate: regular rate Back/Spine/Pelvis Back: No erythema and No warmth Thoracic/Lumbar Spine: No thoracic spinal tenderness and No lumbar spinal tenderness Skin General skin exam: no rashes or lesions noted Neuro General: patient alert and patient oriented x3 Extrem General: normal to inspection Psych Mental Status: mental status grossly normal Course Vital Signs Vital signs: Vital Signs Temperature 36.9 C 07/25/25 15:04 Pulse 88 07/25/25 15:04 Respiratory Rate 16 07/25/25 15:04 Blood Pressure 152/82 H 07/25/25 15:04 Pulse Oximetry 98 07/25/25 15:04 Temperature 36.9 C 07/25/25 15:04 Pulse 88 07/25/25 15:04 Respiratory Rate 16 07/25/25 15:04 Blood Pressure 152/82 H 07/25/25 15:04 Pulse Oximetry 98 07/25/25 15:04 Pain Level 10 07/25/25 15:04 Medical Decision Making 70-year-old male with a history of prior CVA, hypertension who comes in with several months of lower back pain. He denies any fevers, chills, abdominal pain, issues with urination. Denies any IV drug use. He localizes the pain to the paraspinous muscles bilaterally of the lumbar region without any visible palpable deformities. He has no saddle anesthesia. He says there will intermittently have hip pain as well. He has full range of motion of his hips and has no tenderness in his hips currently. No leg swelling or abnormalities of the legs with intact distal sensation and pulses. I suspect arthritis versus possible disc herniation. He has no findings on exam or history to suggest entities such as cauda equina, spinal epidural abscess, transverse myelitis or osteomyelitis do not feel emergent imaging is indicated. Will treat with lidocaine patch, Toradol and Valium and reassess. Patient states he feels significantly better. She has a reassuring exam. I suspect musculoskeletal back pain versus arthritis versus disc herniation. He is stable for discharge and will follow-up with his PCP. Return precautions given. Differential Diagnosis Differential Diagnosis: Disc herniation, arthritis, bursitis PFSH All Active Problems (Updated 07/25/25 @ 17:05 by Cesario Villatoro MD) Bilateral hip pain (Acute) Lumbar back pain (Acute) Corns and callosities (Acute) Dystrophia unguium (Acute) Onychomycosis (Acute) Tinea pedis (Acute) Hammertoe, bilateral (Acute) Pre-diabetes (Acute) Fungal infection of skin (Acute) Groin. 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 Surgical History History of colonoscopy (~06/2024) History of loop recorder in situ S/P herniorrhaphy (~04/2016) [facility] Nephrectomy (~1997) right-secondary to trauma Hemorrhoidectomy Family History Mother No problems noted. 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 [employer] Pets and animals: No Sexually active: No Do you think of yourself as: straight/heterosexual Current gender identity: male What is your relationship status?: How often do you talk on the phone with friends or family?: twice per week How often do you get together with friends or relatives?: once per week How often do you attend caodaism or jehovah's witness services?: decline to answer Do you belong to any clubs or organized social groups?: no Panel score (0-1 are the most socially isolated patients): 2 Duration: 15-30 minutes/day Bee/Mu-Ism: Non holiness Agree to transfusion: Yes Seatbelt use: always Drive intox or ride w/intox day haul or farm charter bus driver: No Working smoke detector in home: Yes Carbon monox detector in home: Yes Do you feel safe at home: Yes Do you feel safe in your relationship?: Yes Victim of physical abuse: No Victim of emotional abuse: No Victim of sexual abuse: No
[2025-07-25] MEDS: diazePAM 5 MG TAB PO (15:59)
[2025-07-25] MEDS: Lidocaine 5% Patch 1 PATCH TP (16:00)
[2025-07-25] MEDS: Ketorolac 15 MG/ML VIAL IM (16:01)
[2025-07-25 16:13] VITALS: PULSE 71; O2SAT 96
[2025-07-25 16:14] VITALS: BP 150/81; PULSE 71; O2SAT 97
[2025-07-25 16:15] VITALS: BP 152/84; PULSE 70; O2SAT 96
[2025-07-25 16:20] VITALS: PULSE 72; O2SAT 96
[2025-07-25 17:24] VITALS: BP 166/89; PULSE 68; RESP 16; TEMP 36.7; O2SAT 98
== END 2025-07-25 17:27 | disposition home or self-care (01) ==
PROVIDERS: Emergency Provider Emergency Medicine; PCP Nurse Practitioner Family
DX: M25.551 Pain in right hip (principal); M25.552 Pain in left hip; M54.50 Low back pain, unspecified
CPT/HCPCS: 99283; 99284; 96372; J1885

== ENCOUNTER 2025-09-01 13:56 | Outpatient (CLI) | payer MEDICARE, SELFPAY ==
[2025-09-01 16:16] LABS: Abs Immature Grans 0.01 10^3/uL (0.0-0.06); HCT 35.8 % (40.0-50.0); HGB 12.5 g/dL (13.5-17.5); Immature Grans % 0.2 %; MCH 30.5 pg (27.0-33.0); MCHC 34.9 % (32.0-36.0); MCV 87 fL (80-95); MPV 12.1 fL (8.0-11.0); Platelet Count 122 10^3/uL (130-400); RBC 4.10 10^6/uL (4.36-5.78); RDW 11.9 % (11.8-14.1); RDW-SD 37.7 fL; WBC 4.35 10^3/uL (4.4-10.8)
[2025-09-01 18:07] LABS: ALT 25 U/L (16-63); AST 18 U/L (15-37); Albumin 3.5 g/dL (3.4-5.0); Alkaline Phosphatase 95 U/L (46-116); Anion Gap 8.3 mmol/L (3-11); BUN 16 mg/dL (7-18); Bilirubin, Total 0.4 mg/dL (0.2-1.0); CO2 29.7 mmol/L (21.0-32.0); Calcium 8.7 mg/dL (8.5-10.1); Chloride 103 mmol/L (98-107); Estimated GFR 79.97 (mL/min/1.73m2); Glucose 118 mg/dL (74-106); Potassium 4.3 mmol/L (3.5-5.1); Sodium 141 mmol/L (136-145); TSH (W/Ref FT4) 1.67 uIU/mL (0.36-3.74); Total Protein 6.8 g/dL (6.4-8.2)
[2025-09-03 10:05] LABS: Lyme Ab w Rflx to Lyme Confirm Negative (Negative)
[2025-09-05 01:29] LABS: B. miyamotoi PCR Negative (Negative); Babesia divergens/MO-1 Negative (Negative); Ehrlichia muris eauclairensis Negative (Negative)
== END 2025-09-01 13:57 | disposition home or self-care (01) ==
LOC: LOS 13:56
PROVIDERS: PCP Nurse Practitioner Family; Visit Provider Nurse Practitioner Family
DX: M54.50 Low back pain, unspecified (principal); R27.0 Ataxia, unspecified; M17.0 Bilateral primary osteoarthritis of knee; F32.9 Major depressive disorder, single episode, unspecified; W57.XXXA Bitten or stung by nonvenomous insect and other nonvenomous arthropods, initial encounter
CPT/HCPCS: 36415; 80053; 87798; 84443; 85025; 86618

== ENCOUNTER → 2025-09-22 08:58 | Outpatient (CLI) | payer MEDICARE, SELFPAY ==
--- NOTE | 2025-09-22 08:45 | DI.RAD_ITS ---
Exam(s) XR LUMBAR SPINE COMPLETE EXAM: XR LUMBAR SPINE COMPLETE CLINICAL HISTORY: M54.50, M25.551 low back and right hip pain. TECHNIQUE: 2D digital imaging was performed. COMPARISON: CT CT ABDOMEN PELVIS W from 12/23/2024 FINDINGS: Five views No evidence of fracture or listhesis and there are no pars interarticularis defects. There is moderate disc space narrowing at L3-4 level and multilevel anterior osseous lipping. Also mild-moderate disc space narrowing at L5-S1 level. Other disc spaces exhibit relatively preserved disc height. Some facet arthropathy is noted at L4-5 and L5-S1 levels. No scoliosis. Bone density normal. No osseous lesions. IMPRESSION: Mild disc space narrowing at L3-4 and L5-S1 levels. No listhesis. Facet arthropathy at the lower 2 levels. DATA REPOSITORY: RADIATION DOSE DELIVERED:
--- NOTE | 2025-09-22 08:45 | DI.RAD_ITS ---
Exam(s) XR HIP RT COMPLETE AP PELVIS EXAM: XR HIP RT COMPLETE AP PELVIS CLINICAL HISTORY: M54.50, M25.551 low back and right hip pain. TECHNIQUE: 2D digital imaging was performed. COMPARISON: No exams were available for comparison FINDINGS: 3 views No evidence of pelvic nor hip fracture. No obvious degenerative changes in the hip. No joint space narrowing nor osteophytes. Faint calcification is noted in the femoral artery. IMPRESSION: No acute osseous findings in the pelvis and hips. DATA REPOSITORY: RADIATION DOSE DELIVERED:
== END ==
LOC: DI 09:01
PROVIDERS: PCP Nurse Practitioner Family; Visit Provider Nurse Practitioner Family
DX: M54.50 Low back pain, unspecified (principal); M25.551 Pain in right hip
CPT/HCPCS: 72110; 73502

== ENCOUNTER → 2025-09-30 02:01 | Outpatient (CLI) | payer MEDICARE, SELFPAY ==
--- NOTE | 2025-09-30 06:30 | DI.CT_ITS ---
Exam(s) CT SINUS WO EXAM: CT SINUS WO CLINICAL HISTORY: continued pain with failed therapy x2,CHRONIC FRONTAL SINUSITIS,J32.1. Evaluate for sinusitis. TECHNIQUE: Imaging Protocol: Axial computed tomography images with coronal and sagittal reformatted images were created and reviewed. COMPARISON: CT CT BRAIN NECK CTA from 06/30/2021 FINDINGS: Frontal sinuses: Mild mucosal thickening of the right frontal sinus. Ethmoid air cells: Mild mucosal thickening. Maxillary sinuses: Mild circumferential mucosal thickening. Sphenoid sinuses: Normally aerated. Ostiomeatal complexes: Patent. Nasal cavity: Septum is midline. Visualized regional soft tissues: No acute findings. Orbits: Unremarkable. Bones: Unremarkable. Mastoid Air Cells: Normally aerated. Visualized portions of the brain: Unremarkable as visualized. IMPRESSION: Mild chronic sinus disease. RADIATION DOSE DELIVERED: 109.63mGy.cm Total DLP DATA REPOSITORY: All CT scans at this facility are submitted to the National Radiology Data Registry (NRDR) Dose Index Registry (DIR) with the [employer] (ACR). RADIATION OPTIMIZATION: All CT scans at this facility use at least one of these dose optimization techniques: automated exposure control; mA and/or kV adjustment per patient size (includes targeted exams where dose is matched to clinical indication); or iterative reconstruction.
== END ==
LOC: DI 02:01
PROVIDERS: PCP Nurse Practitioner Family; Visit Provider Nurse Practitioner Family
DX: J32.1 Chronic frontal sinusitis (principal)
CPT/HCPCS: 70486

== ENCOUNTER 2025-10-02 16:50 | Emergency (ER) | payer MEDICARE, SELFPAY ==
[2025-10-02 16:51] VITALS: BP 167/91; PULSE 75; RESP 16; TEMP 36.6; O2SAT 98
--- NOTE | 2025-10-02 17:11 | W.ED.GENAD ---
Discharge Plan Disposition Patient Disposition: Home Condition: Improving Discharge Details Clinical Impression: Low back pain Primary Care Provider: Ying Dominguez ED Provider: Amandeep Hanna Home Meds and New Rx's Prescriptions: Continued isosorbide mononitrate 30 mg tablet extended release 24 hr 30 mg PO DAILY Qty: 90 3RF albuterol sulfate 90 mcg/actuation HFA aerosol inhaler 2 puff inhalation Q6H PRN amlodipine 5 mg tablet 5 mg PO DAILY Patient Comments: TAKE 1 TABLET BY MOUTH ONCE DAILY ibuprofen 600 mg tablet 600 mg PO DAILY PRN (Reason: pain) Qty: 30 0RF ketoconazole 2 % cream 1 applic topical DAILY Qty: 120 6RF Rx Instructions: Apply to 1g to skin and toenails once daily trazodone 50 mg tablet See Rx Instructions .ROUTE .COMPLEX Qty: 90 1RF Dose Instruction: TAKE 1/2 TO 1 (ONE-HALF TO ONE) TABLET BY MOUTH ONCE DAILY AT BEDTIME NEEDED FOR INSOMNIA Rx Instructions: TAKE 1/2 TO 1 (ONE-HALF TO ONE) TABLET BY MOUTH ONCE DAILY AT BEDTIME NEEDED FOR INSOMNIA primidone 50 mg tablet 50 mg PO QHS Qty: 90 1RF diazepam [Valium] 5 mg tablet 5 mg PO BID PRN (Reason: muscle spasm) Qty: 12 0RF hydrocortisone 2.5 % cream topical Patient Comments: AFTER 2 WEEKS OF USING KETOCONAZOLE CREAM, MIX WITH EQUAL AMOUNT OF KETOCONAZOLE CREAM AND APPLY MIXTURE TOPICALLY TO AFFECTED AREAS IN THE GROIN TWICE DAILY FOR 2 WEEKS. atenolol 100 mg tablet 100 mg PO DAILY paroxetine HCl 20 mg tablet 20 mg PO DAILY allopurinol 300 mg tablet 300 mg PO DAILY cyclobenzaprine 5 mg tablet 5 mg PO QHS fluoxetine 20 mg capsule 20 mg PO DAILY Qty: 90 3RF gabapentin 600 mg tablet 600 mg PO TID Qty: 84 1RF loratadine 10 mg tablet See Rx Instructions .ROUTE .COMPLEX Qty: 90 0RF Dose Instruction: Take 1 tablet by mouth once daily Rx Instructions: Take 1 tablet by mouth once daily omeprazole 40 mg capsule,delayed release(DR/EC) 40 mg PO DAILY Qty: 90 3RF lidocaine 5 % adhesive patch,medicated 1 patch topical DAILY Qty: 30 0RF Rx Instructions: leave on most painful area for up to 12 hrs Discharge Instructions Instructions: Low Back Pain ED, Opioids for Short-Term Treatment of Pain ED Additional Instructions: At this time your laboratory values did not reveal any obvious emergent process. You have responded well to the IV medications provided. I have also given you a take-home pack of morphine for discomfort, please take as directed. Please watch for new or worsening symptoms and return to the ER for any concerns. I strongly recommend completing your outpatient MRI as already scheduled on October 14 as well as your pain clinic appointment on October 27. I would contact them tomorrow and get on the call cancellation list to be seen hopefully sooner. Lastly, I also recommend that you contact your primary care provider tomorrow to discuss your ER visit, ongoing chronic back pain, need for outpatient reevaluation, and possibly additional prescription for breakthrough pain until you can be seen by the pain clinic. Stand Alone Forms: Portal Information HPI General Mode of arrival: ambulatory. Date/Time Provider Initiated Documentation: 10/02/25 16:54. Limitations to Documentation: no limitations. Information obtained by: patient. History of Present Illness 70 year old M presents to the emergency department with the chief complaint of Low back pain, described as similar to prior episodes, with intensity rated at 10. Quality is described as aching, sharp and dull, and is localized to the back. Patient reports radiation to (Bilateral hips). Patient started experiencing this year(s) (1-2) and it has been constant. No relieving factors improve symptom(s), Movement worsens symptoms . Patient notes no other symptoms.. Patient did receive the following treatments prior to arrival, other (Previously taken Valium as well as lidocaine patches.) Related Data Home Medications Medication Instructions Recorded Confirmed ibuprofen 600 mg tablet 600 mg PO DAILY PRN pain #30 tabs 11/03/22 10/02/25 isosorbide mononitrate 30 mg 30 mg PO DAILY #90 tabs 08/26/24 10/02/25 tablet,extended release 24 hr albuterol sulfate 90 mcg/actuation 2 puff inhalation Q6H PRN 12/26/24 10/02/25 aerosol inhaler gabapentin 600 mg tablet 600 mg PO TID #84 tabs 04/21/25 10/02/25 ketoconazole 2 % topical cream 1 applic topical DAILY #120 grams 05/20/25 10/02/25 amlodipine 5 mg tablet 5 mg PO DAILY 07/15/25 10/02/25 lidocaine 5 % topical patch 1 patch topical DAILY #30 ea 07/25/25 10/02/25 loratadine 10 mg tablet See Rx Instructions .Route 08/08/25 10/02/25 .COMPLEX #90 tabs diazepam 5 mg tablet (Valium) 5 mg PO BID PRN muscle spasm #12 08/18/25 10/02/25 tabs omeprazole 40 mg capsule,delayed 40 mg PO DAILY #90 tab-caps 08/18/25 10/02/25 release primidone 50 mg tablet 50 mg PO QHS #90 tabs 08/18/25 10/02/25 trazodone 50 mg tablet See Rx Instructions .Route 08/18/25 10/02/25 .COMPLEX #90 tabs allopurinol 300 mg tablet 300 mg PO DAILY 09/22/25 10/02/25 atenolol 100 mg tablet 100 mg PO DAILY 09/22/25 10/02/25 cyclobenzaprine 5 mg tablet 5 mg PO QHS 09/22/25 10/02/25 fluoxetine 20 mg capsule 20 mg PO DAILY #90 caps 09/22/25 10/02/25 hydrocortisone 2.5 % topical cream applic topical 09/22/25 10/02/25 paroxetine HCl 20 mg tablet 20 mg PO DAILY 09/22/25 10/02/25 Previous Rx's Medication Instructions Recorded ibuprofen 600 mg tablet 600 mg PO DAILY PRN pain #30 tabs 11/03/22 isosorbide mononitrate 30 mg 30 mg PO DAILY #90 tabs 08/26/24 tablet,extended release 24 hr gabapentin 600 mg tablet 600 mg PO TID #84 tabs 04/21/25 ketoconazole 2 % topical cream 1 applic topical DAILY #120 grams 05/20/25 lidocaine 5 % topical patch 1 patch topical DAILY #30 ea 07/25/25 loratadine 10 mg tablet See Rx Instructions .Route 08/08/25 .COMPLEX #90 tabs diazepam 5 mg tablet (Valium) 5 mg PO BID PRN muscle spasm #12 08/18/25 tabs omeprazole 40 mg capsule,delayed 40 mg PO DAILY #90 tab-caps 08/18/25 release primidone 50 mg tablet 50 mg PO QHS #90 tabs 08/18/25 trazodone 50 mg tablet See Rx Instructions .Route 08/18/25 .COMPLEX #90 tabs fluoxetine 20 mg capsule 20 mg PO DAILY #90 caps 09/22/25 Allergies Allergy/AdvReac Type Severity Reaction Status Date / Time No Known Allergies Allergy Verified 10/02/25 10:58 General Stated Complaint: Nk/Back Pain ARIELLA: 4 Review of Systems Constitutional Constitutional: Denies fever(s), Denies headache(s) and Denies weakness ENT Ears, Nose, Mouth, and Throat: Denies headache(s) and Denies neck pain Cardiovascular Cardiovascular: Denies chest pain and Denies dyspnea Respiratory Respiratory: Denies cough and Denies dyspnea Gastrointestinal Gastrointestinal: Denies abdominal pain, Denies fecal incontinence, Denies nausea and Denies vomiting Genitourinary Genitourinary: Denies hematuria, Denies dysuria and Denies urinary incontinence Musculoskeletal Musculoskeletal: Reports myalgias, Denies neck pain, Denies numbness and Denies tingling Integumentary/Breasts Skin/Breast: Denies rash Neurologic Neurologic: Denies headache(s), Denies numbness, Denies tingling and Denies weakness Hematologic/Lymphatic Hematologic/Lymphatic: Denies easy bleeding and Denies easy bruising Exam Const General: cooperative, healthy appearing, no acute distress and other (Uncomfortable) Orientation: alert, awake and oriented x3 HENMT Head: normal to inspection, normocephalic and atraumatic Face and sinus: normal facial exam Mouth: moist mucous membranes Eyes General: appearance normal, both eyes and all related structures Conjunctivae: conjunctivae normal Neck Neck: normal visual inspection, trachea midline and supple Resp Effort & Inspection: normal respiratory effort and able to speak in complete sentences Auscultation: clear to auscultation bilaterally Cardio Rate: regular rate Rhythm: regular rhythm GI Inspection: normal to inspection Palpation: soft, not firm, no guarding, not rigid and nontender Auscultation: normal bowel sounds Back/Spine/Pelvis Back: no CVA tenderness and back tenderness (Diffuse lumbar, worse left paraspinal soft tissue) Skin General skin exam: no rashes or lesions noted Neuro General: patient alert, patient awake, patient oriented x3, moves all extremities and no focal motor deficits Cognition: normal cognition Speech: speech normal Gait: normal gait Sensory Exam: no sensory deficits noted Extrem General: normal to inspection, full ROM, capillary refill normal, pedal edema present and no calf tenderness Other: Hips nontender, full range of motion. Positive straight leg raise bilaterally. Psych Appearance: grossly normal Mental Status: mental status grossly normal Course Vital Signs Vital signs: Vital Signs Temperature 36.6 C 10/02/25 16:51 Pulse 75 10/02/25 16:51 Respiratory Rate 16 10/02/25 16:51 Blood Pressure 167/91 H 10/02/25 16:51 Pulse Oximetry 98 10/02/25 16:51 Temperature 36.6 C 10/02/25 16:51 Pulse 75 10/02/25 16:51 Respiratory Rate 16 10/02/25 16:51 Blood Pressure 167/91 H 10/02/25 16:51 Pulse Oximetry 98 10/02/25 16:51 Pain Level 9 10/02/25 16:51 Medical Decision Making This is a 70-year-old male with a past medical history of GERD, CVA, hypertension, hyperlipidemia, gout, lumbosacral spondylosis, admits to at least 1-2 years of daily chronic back pain. Unfortunately he was scheduled to see the pain clinic today for injections but there was an issue with his insurance and he was unable to have them. He was not able to confirm with his insurance that he can have them but this now needs to be rescheduled. He is also scheduled for an MRI of his lumbar spine on October 14. No acute injury or change in his symptoms. No other symptoms such as fever, headache, neck pain, chest pain, shortness of breath, abdominal pain, nausea, vomiting, painful urination, urinary or bowel incontinence, radicular symptoms down his legs, numbness, tingling, or weakness. He is here now hopeful for something other than Valium and Lidoderm patches which have not helped in the past. Denies IV drug use. Reassuring exam, neurologically intact. Low suspicion for cauda equina, transverse myelitis, osteomyelitis, spinal epidural abscess, exc. Likely chronic back pain exacerbation, arthritic flareup, disc herniation, ect. Obtain routine screening laboratory values and gave 15 IV Toradol, IV Norflex, and morphine. CBC reveals a normal white blood cell count of 5.05, which appears to be baseline anemia. Normal electrolytes. Creatinine 0.9 with a GFR of 88.49. Glucose 75. Normal LFTs. Lipase 43. Urine negative. I did review x-ray of the hip and pelvis from 09/22/2025, no significant degenerative changes or acute injury. Lumbar spine x-ray from 09/22/2025 reviewed, mild to space narrowing at L3-4 and L5-S1. Facet arthropathy at the lower 2 levels. Upon reevaluation he is feeling much better, he is very grateful. He is eager to be discharged home and get a good night sleep. We discussed the importance of having his outpatient MRI as already scheduled on October 14 as well as following back up with the pain clinic on October 27. I would contact the pain clinic to see if he can get on the call cancellation list to help expedite any potential injections. We also discussed the importance of watching for new or worsening symptoms and returning immediately to the ER. Lastly, I did recommend that he contact his primary care provider tomorrow to discuss his ER visit, back pain, and potential need for additional prescription for breakthrough pain in the meantime until his MRI and/or injection. He remains neurologically intact without any evidence of decompensation. Standard discharge and return precautions were provided. Patient understands, is agreeable to this plan, and has no additional questions or concerns upon discharge. This documentation was generated using [employer] Jam[employer] system, please disregard any oddities of phrase or misspellings. Medical Records Medical records reviewed: Yes I reviewed the patient's medical records. [facility] All Active Problems (Updated 10/02/25 @ 18:34 by IKE Toney) Lumbosacral spondylosis without myelopathy (Acute) Corns and callosities (Acute) Dystrophia unguium (Acute) Onychomycosis (Acute) Tinea pedis (Acute) Hammertoe, bilateral (Acute) Pre-diabetes (Acute) Fungal infection of skin (Acute) Groin. 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 Surgical History Nephrectomy (~1997) right-secondary to trauma History of colonoscopy (~06/2024) History of loop recorder in situ S/P herniorrhaphy (~04/2016) [facility] Hemorrhoidectomy Family History Mother No problems noted. 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 [employer] Pets and animals: No Sexually active: No Do you think of yourself as: straight/heterosexual Current gender identity: male What is your relationship status?: How often do you talk on the phone with friends or family?: twice per week How often do you get together with friends or relatives?: once per week How often do you attend caodaism or islam services?: decline to answer Do you belong to any clubs or organized social groups?: no Panel score (0-1 are the most socially isolated patients): 2 Duration: 15-30 minutes/day Bee/Congregation: Non methodist Agree to transfusion: Yes Seatbelt use: always Drive intox or ride w/intox chuck wagon driver: No Working smoke detector in home: Yes Carbon monox detector in home: Yes Do you feel safe at home: Yes Do you feel safe in your relationship?: Yes Victim of physical abuse: No Victim of emotional abuse: No Victim of sexual abuse: No
[2025-10-02 17:44] LABS: Abs Immature Grans 0.01 10^3/uL (0.0-0.06); HCT 37.3 % (40.0-50.0); HGB 12.9 g/dL (13.5-17.5); Immature Grans % 0.2 %; MCH 30.1 pg (27.0-33.0); MCHC 34.6 % (32.0-36.0); MCV 87 fL (80-95); MPV 11.3 fL (8.0-11.0); Platelet Count 138 10^3/uL (130-400); RBC 4.28 10^6/uL (4.36-5.78); RDW 12.2 % (11.8-14.1); RDW-SD 39.0 fL; WBC 5.05 10^3/uL (4.4-10.8)
[2025-10-02] MEDS: Orphenadrine 60 MG/2 ML VIAL IVP (17:45)
[2025-10-02] MEDS: MORPHine 10 MG/ML VIAL 4 MG IVP (17:45)
[2025-10-02] MEDS: Ketorolac 15 MG/ML VIAL IVP (17:45)
[2025-10-02] MEDS: Normal Saline Flush 10 ML SYR IVP (17:46)
[2025-10-02 18:01] LABS: Glucose Negative (Negative)
[2025-10-02 18:13] LABS: Lipase 43 U/L (<53)
[2025-10-02 18:15] LABS: ALT 19 U/L (10-49); AST 24 U/L (<34); Albumin 4.3 g/dL (3.4-5.0); Alkaline Phosphatase 90 U/L (46-116); Anion Gap 10.4 mmol/L (3-11); BUN 12 mg/dL (9-23); Bilirubin, Total 0.40 mg/dL (0.2-1.2); CO2 25.6 mmol/L (20.0-31.0); Calcium 8.7 mg/dL (8.3-10.6); Chloride 105 mmol/L (98-107); Glucose 75 mg/dL (74-106); Potassium 3.5 mmol/L (3.5-5.1); Sodium 141 mmol/L (136-145); Total Protein 6.7 g/dL (5.7-8.2)
[2025-10-02] MEDS: MORPHine IR 15 MG TAB, 4 TABS/BTL PO (18:45)
[2025-10-02 18:52] VITALS: BP 136/78; PULSE 67; RESP 16; TEMP 36.7; O2SAT 98
== END 2025-10-02 18:54 | disposition home or self-care (01) ==
PROVIDERS: Emergency Provider Physician Assistant; PCP Nurse Practitioner Family
DX: M54.50 Low back pain, unspecified (principal); I10 Essential (primary) hypertension; E78.5 Hyperlipidemia, unspecified; Z86.73 Personal history of transient ischemic attack (TIA), and cerebral infarction without residual deficits; Z79.899 Other long term (current) drug therapy
CPT/HCPCS: 36415; 80053; 83690; 96374; 96375; 99284; J2360; 81003; 85025; J1885; J2270

== ENCOUNTER → 2025-10-14 00:19 | Outpatient (CLI) | payer MEDICARE, SELFPAY ==
--- NOTE | 2025-10-14 06:15 | DI.MRI_ITS ---
Exam(s) MR LUMBAR SPINE WO EXAM: MR LUMBAR SPINE WO CLINICAL HISTORY: Low back and right hip pain,m54.50,m25.551. TECHNIQUE: Multiplanar multisequence MRI of the Lumbar spine was performed. COMPARISON: CR XR LUMBAR SPINE COMPLETE from 09/22/2025 FINDINGS: Conus medullaris is at normal level. There is no evidence of conus mass nor subjacent clumping of intrathecal nerve roots to suggest arachnoiditis. The distal thecal sac appears unremarkable.There is no evidence of Tarlov intrasacral cysts nor other significant findings within the sacral canal Bones:No acute fractures. No ominous osseous lesions. With respect to the individual levels... T12-L1: Unremarkable L1-2: Normal disc height and signal. No disc herniation nor central canal stenosis.No foraminal stenosis L2-3: Normal disc height. There is broad symmetrical annular bulging but no distinct focal disc herniation. Central canal dimensions are lower normal. Facet joints unremarkable. There is no significant foraminal stenosis. L3-4: Relatively preserved disc height. There is Schmorl's node invagination in the posterior left side of the superior endplate of L4, the without surrounding bone edema. Smaller more shallow Schmorl's node invagination seen at the mid aspect of the superior endplate of L4.. There is also of a small Schmorl's node invagination in the posterior aspect of the inferior endplate of L3, right of center. No surrounding bone edema at this level. There is broad annular bulging at this level and with extension of the annular bulging into the floor of both exiting neural foramina. There is no central canal stenosis. Only mild bilateral foraminal stenosis. There is only mild facet arthropathy. L4-5: Normal disc height. Mild symmetrical annular bulging. No significant disc herniation. Central canal dimensions are lower normal. There are moderate degenerative changes in both facet joints. No significant foraminal stenosis on either side at this level. L5-S1: Normal disc height. Mild annular bulging with a small superimposed central subligamentous disc protrusion which extends posteriorly 2 mm and is 4 mm wide. This does not contact the anterior aspect of the thecal sac at this level and there is no significant central spinal canal stenosis at this level. Also no significant foraminal stenosis. Are only mild degenerative changes in the facet joints this level. Soft tissues: Right kidney is absent. Partially included left kidney reveals benign cysts. IMPRESSION: 1. Main findings at are L3-4 level as described above. Schmorl's node invaginations at this level but no prominent disc herniation at this level although there is broad annular bulging with extension of the annular bulging into the floor both exiting neural foramina. However, there is only mild bilat eral foraminal stenosis. There is no central canal stenosis at this level nor elsewhere in the lumbar spinal column. 2. Other findings as above. DATA REPOSITORY:
--- NOTE | 2025-10-14 06:15 | DI.MRI_ITS ---
Exam(s) MR LOWER JOINT RT WO EXAM: MR LOWER JOINT RT WO CLINICAL HISTORY: Low back and right hip pain,m25.551,m54.50 TECHNIQUE: Multiplanar multisequence MRI of the hip was performed. COMPARISON: CR XR HIP RT COMPLETE AP PELVIS from 09/22/2025 FINDINGS: MARROW:There is no evidence of fracture, bone contusion, nor avascular necrosis. There are no significant osseous lesions. HIP JOINT SPACE: There is no hip joint effusion. No loose intra-articular bodies. There are only mild degenerative changes, not more than is seen in the opposite-left hip. Mild cartilage thinning in the hip joint but less than is evident on the opposite-left side. There are no osteophytes.There is no hypertrophy of the ligamentum teres nor signal abnormality at the fovea centralis.There is a small degenerative subarticular cyst in the superolateral aspect of the acetabulum. This is smaller than the similar finding in the opposite-left hip. LABRUM: There is some cystic degenerative change in the anterior superior aspect of the labrum.. There appear to be small tears in the anterior and posterior labrum BURSAE: There is no evidence of trochanteric bursitis. There is no evidence of iliopsoas bursitis. TENDONS: No evidence of tendinitis nor tendon tears. ISCHIAL TUBEROSITY/HAMSTRING: There is abnormal signal within the common hamstrings tendon at its attachment to the right ischial tuberosity consistent with tendinitis. There is no intraosseous signal abnormality in the ischial tuberosity itself. Similar findings are not seen on the opposite-left side. OTHER: There is no abnormal intramuscular signal within the quadratus femoris to suggest the presence of impingement syndrome at this level. IMPRESSION: 1. No evidence of stress fracture, bone contusion, avascular necrosis, nor joint effusion in the right hip. 2. There are only mild degenerative changes. However, there is abnormal signal related to both the anterior posterior labrum consistent with cystic degenerative change in the anterior acetabular labrum and tearing in the posterior labrum. 3. Small degenerative subarticular cysts noted in the superolateral aspect of the acetabulum. 4. Tendinitis signal and mild partial tearing at the insertional aspect of the common hamstrings tendon upon the right ischial tuberosity. Similar finding is not seen in the opposite-left hamstrings tendon. DATA REPOSITORY:
== END ==
LOC: DI 00:19
PROVIDERS: PCP Nurse Practitioner Family; Visit Provider Nurse Practitioner Family
DX: M54.50 Low back pain, unspecified (principal); M25.551 Pain in right hip
CPT/HCPCS: 73721; 72148

== ENCOUNTER 2025-10-27 09:50 | Outpatient (CLI) | payer MEDICARE, SELFPAY ==
--- NOTE | 2025-10-27 06:00 | DI.RAD_ITS ---
Exam(s) XR PAIN CLINIC LUMBAR SP 2V EXAM: XR PAIN CLINIC LUMBAR SP 2V CLINICAL HISTORY: DX: Lumbar Spondylosis TECHNIQUE: 2D and realtime digital imaging was performed. CONTRAST MATERIAL: Refer to procedure report. COMPARISON: No exams were available for comparison FINDINGS: Fluoroscopy was provided for Dr. Vivas during the performance of a bilateral lumbar medial branch block. Please refer to the procedure report for complete details. Ka,r=11.0 mGy IMPRESSION: RADIATION DOSE DELIVERED: 0.0 0.0 0
[2025-10-27 10:01] VITALS: BP 132/83; PULSE 68; RESP 20; TEMP 37.2; O2SAT 98
--- NOTE | 2025-10-27 10:50 | PDOC.PAIN ---
Date of service: 10/27/25 Time of Service: 11:11 Pain Managment Procedure Note Procedure Note Procedure Note: Lumbar Medial Branch Block ? Location: Bilateral Medial Branches ? Levels: L3,4,5? (L4-5, L5-S1 FACET) ? 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 Post-procedure Diagnosis:? The same as above ? Sedation: NONE? Estimated blood loss:? less than 2 ml ? Surgeon:? Martin Vivas MD COMMENT: Patient with mechanical low back pain ? Procedure Detail:? The procedure and potential risks were explained to the patient and informed written consent was obtained. The patient was escorted to the procedure room and placed in the prone position. Pillows were utilized for proper positioning and comfort.? Time out was performed in procedure room with nursing staff confirming the patient's identity, procedure to be performed, allergies, and any blood thinning or anti-platelet medications. The patient's lower back was prepped with chlorhexidine and draped in a sterile fashion. Sterile technique was maintained throughout the procedure.? Sterile gloves were used, a face mask was worn, and new single dose vials of all medications were used with the top being swabbed with alcohol and given time to dry prior to withdrawal of medication.? A left AND right-sided oblique fluoroscopic view was obtained, with visualization of the: ?RIGHT and LEFT L3,4 and DORSAL RAMUS L5 AT SACRAL ALA ? junction of the transverse process and superior articular process. Lidocaine 1% was used to anesthetize the skin. A 22-gauge Quincke needle was advanced along the superior margin of the transverse process and lateral to the articular process.? It was directed inferiorly and medially so that the tip struck the junction of the base of the transverse process and the superior articular process. The needle was then walked over the superior aspect of the transverse process and advanced slightly along the course of the L3,4,5 medial branch nerves. Proper placement was verified in A/P, oblique and lateral views under fluoroscopy. At this location, following negative aspiration, 0.5ml 0.5% bupivacaine was injected.? The patient tolerated the procedure well and was transported to the recovery area for observation and discharge instructions. Permanent images saved and recorded. The Follow-up:? The patient will return in 2 weeks for confirmatory LMBBs if they? meet the criteria from today's procedure lasting for at least 2 hours.? COMMENT:Pain went from 10/10 to 6/10. Before the patient left patient had greater than []% pain relief. Patient just had an updated MRI-1. Main findings at are L3-4 level as described above. Schmorl's node invaginations at this level but no prominent disc herniation at this level although there is broad annular bulging with extension of the annular bulging into the floor both exiting neural foramina.-He might be a candidate for basivertebral nerve ablation if this is not effective. 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
[2025-10-27 11:09] VITALS: PULSE 60; O2SAT 100
[2025-10-27] MEDS: Bupivacaine 0.5% Pres-Free 10 ML VIAL IJ (11:16)
[2025-10-27] MEDS: Nerve Block Tray 1 EACH MC (11:17)
== END 2025-10-27 09:51 | disposition home or self-care (01) ==
LOC: PC 09:50
PROVIDERS: PCP Nurse Practitioner Family; Visit Provider Anesthesiology Pain Medicine
DX: M47.816 Spondylosis without myelopathy or radiculopathy, lumbar region (principal); M47.817 Spondylosis without myelopathy or radiculopathy, lumbosacral region
CPT/HCPCS: 64493; 64494; 72100; J0665

== ENCOUNTER 2025-11-12 08:41 | Outpatient (CLI) | payer MEDICARE, SELFPAY ==
--- NOTE | 2025-11-12 06:00 | DI.RAD_ITS ---
Exam(s) XR PAIN CLINIC SACRIOILIAC 2V EXAM: XR PAIN CLINIC SACRIOILIAC 2V CLINICAL HISTORY: DX: Sacroiliac Dysfunction. TECHNIQUE: Fluoroscopy was provided for the referring physician for guidance with performing pain clinic injection procedure. COMPARISON: No exams were available for comparison FINDINGS: Please see procedure note for details. Fluoro time: 13.3 seconds RADIATION DOSE DELIVERED: Ka,r=3.94 mGy
[2025-11-12 08:46] VITALS: BP 141/78; PULSE 79; RESP 20; TEMP 37; O2SAT 100
--- NOTE | 2025-11-12 09:32 | PDOC.PAIN_ITS ---
Date of service: 11/12/25 Time of Service: 09:49 Pain Managment Procedure Note Procedure Note Procedure Note: ?Sacroiliac Joint Steroid Injection ? Location: ? Right SI Joint? Pre-procedure Diagnosis: Sacroiliac joint dysfunction not elsewhere class ified - M53.3 ? Post-procedure Diagnosis:? The same as above ? Sedation:? NONE ? Medication: Depo-Medrol 40 mg, bupivacaine 0.5% 1 mL, Omnipaque 0.25 mL per joint ? Estimated blood loss:? less than 2 cc ? Surgeon:? Martin Vivas MD ? COMMENT: THIS WILL BE BOTH DIAGNOSTIC AND THERAPEUTIC Patient had medial branch blocks with relief. ? Procedure Detail:? The procedure and potential risks were explained to the patient and informed written consent was obtained. The patient was escorted to the procedure room and placed in the prone position. Pillows were utilized for proper positioning and comfort. Time out was performed in the procedure room with nursing staff confirming the patient's identity, procedure to be performed, allergies, and any blood thinning or anti-platelet medications. The patient's lumbosacral area was prepped with ChloraPrep and draped in a sterile fashion. Sterile technique was maintained throughout the procedure.? Sterile gloves were used, a face mask was worn, and new single dose vials of all medications were used with the top being swabbed with alcohol and given time to dry prior to withdrawal of medication. Lidocaine 1% was used to anesthetize the skin. With fluoroscopic guidance, a 22-gauge 3.5 spinal needle was advanced into the posteroinferior aspect of the Right SI joint . Confirmation of intra-articular position of the needle tip was obtained with injection of 0.25cc of Omnipaque 240 contrast which showed appropriate spread within the joint.? Following negative aspiration, 40mg of methylprednisolone mixed with 1 mL of bupivacaine 0.5% was injected.? The needle was gently removed. ?The patient tolerated the procedure well and was discharged home with instructions.? Permanent images saved and recorded. Plan:? Follow up prn.Consider intra-articular facet injections on the right at L4-5 and L5- S1. Consider basivertebral nerve ablation L3 and L4 PAIN PRE PROCEDURE 03/22 POST PROCEDURE 12/23 COMMENT: 60 % BETTER AFTER INJECTION Coding Conscious Sedation used for procedure: No CPT Codes: SI Joint Inj; incl Fluoro - [id number] ([id number] ~G) Additional Codes: Date of Service () Diagnoses: Sacroiliac joint dysfunction not elsewhere classified - M53.3
[2025-11-12 09:36] VITALS: PULSE 82; O2SAT 97
[2025-11-12 09:40] VITALS: PULSE 67; O2SAT 97
[2025-11-12] MEDS: methylPREDNISolone ACETATE 40 MG/ML VIAL IJ (09:50)
[2025-11-12] MEDS: Omnipaque 240 MG/ML 50 ML BTL IJ (09:50)
[2025-11-12] MEDS: Nerve Block Tray 1 EACH MC (09:50)
[2025-11-12] MEDS: Bupivacaine 0.5% Pres-Free 10 ML VIAL IJ (09:50)
== END 2025-11-12 08:42 | disposition home or self-care (01) ==
LOC: PC 08:42
PROVIDERS: PCP Nurse Practitioner Family; Visit Provider Anesthesiology Pain Medicine
DX: M54.50 Low back pain, unspecified (principal); M53.3 Sacrococcygeal disorders, not elsewhere classified
CPT/HCPCS: 27096; 72200; J0665; J1010; Q9967